=== PATIENT | male | born 1985 | race Caucasian/White ===

== ENCOUNTER 2021-02-22 10:06 | Inpatient (IN) ==
[2021-02-22] MEDS ORDERED: ONDANSETRON INJ 2 MG/ML 2 ML VIAL IV STA ×2 (10:30→12:36)
[2021-02-22] MEDS ORDERED: KETOROLAC TROMETHAMINE 15 MG/ML VIAL IV STA (10:30)
[2021-02-22] MEDS ORDERED: SODIUM CHLORIDE 0.9% 1000ML 1,000 ML IV STA (10:30)
[2021-02-22] MEDS ORDERED: PROMETHAZINE 12.5 MG/50.5 ML BAG IV STA (10:30)
[2021-02-22] MEDS ORDERED: MoRPHine SULFATE 4 MG/ML 1 ML CARP\\VIAL IV PRN (10:36)
[2021-02-22] MEDS ORDERED: MoRPHine SULFATE 10 MG/ML CARP/VIAL IV STA (10:36)
[2021-02-22] MEDS ORDERED: MoRPHine SULFATE 2 MG/ML CARP ONE (10:41)
--- NOTE | 2021-02-22 10:41 | Emergency Department Note ---
Impression & Plan Right sided abdominal pain, Vomiting, Leukocytosis, Acute pancreatitis ED Provider Note NAME: JERSON FISHER AGE: 35 SEX: M : 1985 ARRIVES VIA: Walk-In INFORMANT: [Patient] ED PROVIDER(S): [John Paul Hughes MD] CHIEF COMPLAINT: Vomiting, abdominal pain HISTORY OF PRESENT ILLNESS: The patient is a 35-year-old male presents with vomiting, abdominal pain and chest pain. This all began this morning, several hours ago. The patient describes the pain as a 10/10 across the chest and abdomen. He also in the last few hours, has developed some diarrhea. The patient states that he was fine last night. He states that he has had episodes like this for the last several months. This all started after he had a hernia surgery and his gallbladder removed last June. The patient presents today because his episode of symptoms is lasting much longer than typical. He is also in more pain. There has been no fever or chills, no cough or congestion. The patient d escribes the abdominal pain as severe, constant and right-sided. He describes his chest pain as severe, constant and central without radiation. Of note, the patient does use alcohol, he was drinking the day before his pain began. REVIEW OF SYSTEMS: See HPI for pertinent positives and negatives. A total of ten systems were reviewed and were otherwise negative. PMHx/PSHx: See Below SOCIAL HISTORY: See Below. PHYSICAL EXAM: GENERAL: Patient is in moderate distress from pain. HEENT: No acute trauma, normocephalic atraumatic, mucous membranes moist, no nasal congestion, no scleral icterus. NECK: No stridor, no adenopathy, no meningismus, trachea is midline. LUNGS: Clear to auscultation bilaterally, no wheeze, no rhonchi, breath sounds equal. HEART: Without murmurs gallops or rubs, regular rate and rhythm. ABDOMEN: Soft, moderately tender along the entire right side, bowel sounds positive, no hernias, no peritonitis. EXTREMITIES: No cyanosis or edema, full range of motion of all the joints without pain or difficulty, no signs for acute trauma. NEUROLOGIC: Oriented x 3, no acute motor or sensory deficits, no focal weakness. SKIN: No rash, no jaundice, no diaphoresis. Groin: Normal testicles, no obvious hernia. DIFFERENTIAL DIAGNOSIS: Appendicitis, testicular torsion, infections, diverticulitis, UTI, obstruction, mesenteric ischemia, aortic pathology, inflammatory bowel disease, renal colic, PUD, pancreatitis, biliary pathology, hernia, volvulus, constipation, as well as other pathologies. EMERGENCY DEPARTMENT COURSE/PROCEDURES: ECG: Indication was chest pain. The ECG shows a sinus bradycardia with a rate of 51. There is no ST elevation, no PVCs. The QTc is 377. Continuous Cardiac Monitoring: An order was placed for continuous cardiac monitoring. The monitor shows a rate of 62 with normal sinus rhythm. MEDICAL DECISION MAKING: There is a mild leukocytosis which would be consistent with infection. No anemia. There is a normal platelet count. Potassium was somewhat low at 3.1, no kidney failure. There were some liver enzyme elevations noted. Lipase was elevated at over 4000 consistent with pancreatitis. Covid testing was negative. ECG showed a sinus bradycardia, no acute ischemia. Cardiac enzyme testing x1 is not consistent with acute cardiac injury. Chest x-ray did not show free air, mediastinal widening or pneumonia. Abdominal and pelvis CT shows evidence for acute pancreatitis. The patient was quite uncomfortable on exam. He received IV saline. He was given IV saline with multivitamins, thiamine and folate. He received IV Phenergan for nausea. He received IV Zofran for nausea. A second dose of IV Zofran was given. He was given IV morphine for pain. He received IV Toradol for pain. He was given IV Pepcid. The patient does feel improved but still complains of some mild nausea. No further vomiting witnessed by me. The patient has acute pancreatitis. This explains his presentation. He likely has pancreatitis as result of his alcohol intake. The patient is in need of a hospital stay. I spoke with the patient and case management. The on-call hospitalist was consulted. Past Med/Surg History Medical History (Updated 02/22/21 @ 14:46 by John Paul Hughes MD) GERD (gastroesophageal reflux disease) Surgical History Hx of appendectomy S/P cholecystectomy Family History Other No significant family history Social History Smoking Status: Current every day smoker Preferred Language: Maori marital status: Current Living Situation: Spouse current occupational status: employed Feels Safe at Home: Yes Allergies Allergies Allergy/AdvReac Type Severity Reaction Status Date / Time erythromycin base Allergy Unknown seizure Verified 02/22/21 10:23 Home Meds Home Medications Medication Instructions Recorded Confirmed gumvmtf-gkrkpeyrdbmix-ecwfkhem 250 1 tab PO Q6H PRN 02/22/21 02/22/21 mg-250 mg-65 mg tablet (Excedrin Migraine) famotidine 40 mg tablet 40 mg PO HS 02/22/21 02/22/21 ondansetron 8 mg disintegrating 8 mg PO TID 02/22/21 02/22/21 tablet pantoprazole 20 mg tablet,delayed 40 mg PO QAM 02/22/21 02/22/21 release pindolol 10 mg tablet 10 mg PO BID 02/22/21 02/22/21 prednisone 10 mg tablet 10 - 50 mg PO DAILY 02/22/21 02/22/21 Results & Data (ED) Vital Signs Vital Signs - 24 hr 02/22/21 10:11 02/22/21 10:22 02/22/21 13:42 Temperature 36.5 C Temperature Source Skin Pulse Rate 62 67 67 Pulse Rate from SpO2 Sensor 67 Respiratory Rate 18 16 21 Blood Pressure 179/107 H 171/108 H 157/108 H Blood Pressure Mean 131 129 124 Pulse Oximetry 100 100 Oxygen Delivery Method Room Air Sepsis Recent Fever Within 48 Hours No Sepsis New/Unexplained Change in Mental Status No Sepsis Action Taken by Nursing No Action Required Home Medications Current Medication List: was personally reviewed by me Laboratory Data Attestation: I reviewed the patient's lab results. Result diagrams: 02/22/21 11:02 02/22/21 11:02 Lab Results 02/22/21 02/22/21 02/22/21 Range/Units 11:02 11:02 13:05 WBC 11.67 H (4.8-10.8) K/uL RBC 4.38 L (4.7-6.1) M/uL Hgb 15.7 (14.0-18.0) g/dL Hct 45.4 (42-52) % MCV 103.7 H (80-100) fL MCH 35.8 H (25-34) pg MCHC 34.6 (32-36) g/dL RDW Std Deviation 51.3 H (36.4-46.3) fL RDW Coeff of Jeremie 13.4 (11.5-14.5) % Plt Count 275 (130-400) K/uL MPV 9.6 (7.4-10.4) fL Immature Gran % (Auto) 0.2 % Neut % (Auto) 62.7 % Lymph % (Auto) 27.9 % Ware % (Auto) 9.1 % Eos % (Auto) 0.0 % Baso % (Auto) 0.1 % Neut # (Auto) 7.32 H (1.4-6.5) K/uL Lymph # (Auto) 3.26 (1.2-3.4) K/uL Ware # (Auto) 1.06 H (0.11-0.59) K/uL Eos # (Auto) 0.00 (0-0.5) K/uL Baso # (Auto) 0.01 (0-0.2) K/uL Immature Gran # (Auto) 0.02 (0.00-0.02) K/uL Sodium 141 (136-145) mmol/L Potassium 3.1 L (3.5-5.1) mmol/L Chloride 105 (98-107) mmol/L Carbon Dioxide 31 (21-32) mmol/L Anion Gap 5.0 (3-11) BUN 9 (7-18) mg/dl Creatinine 0.59 L (0.6-1.4) mg/dl Est Cr Clr Drug Dosing 175.8 ml/min Est GFR ( Amer) > 150.0 ml/min Est GFR (Non-Af Amer) 130.3 ml/min BUN/Creatinine Ratio 14.6 (10-20) Glucose 110 H (70-99) mg/dl Calcium 8.9 (8.5-10.1) mg/dl Total Bilirubin 1.1 H (0.2-1) mg/dl AST 375 H (15-37) U/L ALT 226 H (12-78) U/L Alkaline Phosphatase 216 H (45-117) U/L Troponin I < 0.015 (0-0.045) ng/ml Total Protein 7.0 (6.4-8.2) gm/dl Albumin 3.8 (3.4-5.0) gm/dl Globulin 3.2 (2.5-4.0) gm/dl Albumin/Globulin Ratio 1.2 (0.9-2) Lipase 4170 H (73-393) U/L COVID-19 Eval Order Covid19 at [facility] SARS-CoV-2 (PCR) (Negative) 02/22/21 Range/Units 13:05 WBC (4.8-10.8) K/uL RBC (4.7-6.1) M/uL Hgb (14.0-18.0) g/dL Hct (42-52) % MCV (80-100) fL MCH (25-34) pg MCHC (32-36) g/dL RDW Std Deviation (36.4-46.3) fL RDW Coeff of Jeremie (11.5-14.5) % Plt Count (130-400) K/uL MPV (7.4-10.4) fL Immature Gran % (Auto) % Neut % (Auto) % Lymph % (Auto) % Ware % (Auto) % Eos % (Auto) % Baso % (Auto) % Neut # (Auto) (1.4-6.5) K/uL Lymph # (Auto) (1.2-3.4) K/uL Ware # (Auto) (0.11-0.59) K/uL Eos # (Auto) (0-0.5) K/uL Baso # (Auto) (0-0.2) K/uL Immature Gran # (Auto) (0.00-0.02) K/uL Sodium (136-145) mmol/L Potassium (3.5-5.1) mmol/L Chloride (98-107) mmol/L Carbon Dioxide (21-32) mmol/L Anion Gap (3-11) BUN (7-18) mg/dl Creatinine (0.6-1.4) mg/dl Est Cr Clr Drug Dosing ml/min Est GFR ( Amer) ml/min Est GFR (Non-Af Amer) ml/min BUN/Creatinine Ratio (10-20) Glucose (70-99) mg/dl Calcium (8.5-10.1) mg/dl Total Bilirubin (0.2-1) mg/dl AST (15-37) U/L ALT (12-78) U/L Alkaline Phosphatase (45-117) U/L Troponin I (0-0.045) ng/ml Total Protein (6.4-8.2) gm/dl Albumin (3.4-5.0) gm/dl Globulin (2.5-4.0) gm/dl Albumin/Globulin Ratio (0.9-2) Lipase (73-393) U/L COVID-19 Eval Order SARS-CoV-2 (PCR) NEGATIVE (Negative) Administered Medications Potassium Chloride (K Leonides / Wtr) 10 meq in 100 mls @ 100 mls/hr IV Q1H STA Stop: 02/22/21 15:08 Last Admin: 02/22/21 14:30 Dose: 100 mls/hr Documented by: [id number] Morphine Sulfate (Morphine Sulfate 4 Mg/Ml 1 Ml Carp\Vial) 4 mg IV Q20M PRN PRN Reason: Pain Stop: 03/08/21 10:35 Last Admin: 02/22/21 13:06 Dose: 4 mg Documented by: [id number] Discontinued Medications Sodium Chloride (Nss 1000ml) 1,000 mls @ 999 mls/hr IV .Q1H1M STA Stop: 02/22/21 11:30 Last Infusion: 02/22/21 12:07 Dose: 0 mls/hr Documented by: [id number] Admin: 02/22/21 11:01 Dose: 999 mls/hr Documented by: [id number] Promethazine HCl (Phenergan) 12.5 mg in 50.5 mls @ 202 mls/hr IV NOW STA Stop: 02/22/21 10:44 Last Infusion: 02/22/21 11:20 Dose: 0 mls/hr Documented by: [id number] Admin: 02/22/21 11:01 Dose: 202 mls/hr Documented by: [id number] Multivitamins 10 ml/ Thiamine HCl 100 mg/ Folic Acid 1 mg/Sodium Chloride 1,011.2 mls @ 1,011.2 mls/hr IV .Q1H ONE Stop: 02/22/21 13:35 Last Infusion: 02/22/21 14:32 Dose: 0 mls/hr Documented by: [id number] Admin: 02/22/21 13:27 Dose: 1,011.2 mls/hr Documented by: [id number] Famotidine (Pepcid 20mg Iv Push) 20 mg in 5 mls @ 2.5 mls/min IV NOW STA Stop: 02/22/21 13:39 Last Admin: 02/22/21 14:20 Dose: 2.5 mls/min Documented by: [id number] Lorazepam (Ativan) 1 mg in 2 mls @ 2 mls/min IV NOW STA Stop: 02/22/21 13:41 Last Admin: 02/22/21 14:25 Dose: 2 mls/min Documented by: [id number] Ioversol (Optiray 320 100ml) 94 ml IV ONCE ONE Stop: 02/22/21 12:03 Last Admin: 02/22/21 12:02 Dose: 94 ml Documented by: [id number] Ketorolac Tromethamine (Ketorolac Tromethamine 15 Mg/Ml Vial) 15 mg IV NOW STA Stop: 02/22/21 10:31 Last Admin: 02/22/21 11:00 Dose: 15 mg Documented by: [id number] Morphine Sulfate (Morphine Sulfate 10 Mg/Ml Carp/Vial) 6 mg IV NOW STA Stop: 02/22/21 10:37 Last Admin: 02/22/21 11:01 Dose: Not Given Documented by: [id number] Morphine Sulfate (Morphine Sulfate 2 Mg/Ml Carp) Confirm Administered Dose 2 mg .ROUTE .STK-MED ONE Stop: 02/22/21 10:42 Last Admin: 02/22/21 11:00 Dose: 2 mg Documented by: [id number] Morphine Sulfate (Morphine Sulfate 4 Mg/Ml 1 Ml Carp\Vial) Confirm Administered Dose 4 mg .ROUTE .STK-MED ONE Stop: 02/22/21 10:43 Last Admin: 02/22/21 11:00 Dose: 4 mg Documented by: [id number] Ondansetron HCl (Ondansetron Inj 2 Mg/Ml 2 Ml Vial) 4 mg IV NOW STA Stop: 02/22/21 10:31 Last Admin: 02/22/21 10:59 Dose: 4 mg Documented by: [id number] Ondansetron HCl (Ondansetron Inj 2 Mg/Ml 2 Ml Vial) 4 mg IV NOW STA Stop: 02/22/21 12:37 Last Admin: 02/22/21 13:06 Dose: 4 mg Documented by: [id number] Imaging Data Radiologist's Impression: Abdomen/Pelvis CT 02/22/21 10:[address] WITH IV CONTRAST CT DOSE: 492.56 mGycm HISTORY: Acute nausea and vomiting with right-sided abdominal pain nv, right sided pain TECHNIQUE: Multiaxial CT images of the abdomen and pelvis were performed following the IV administration of 94 cc of Optiray, A dose lowering technique was utilized adhering to the principles of ALARA. COMPARISON STUDY: CT abdomen and pelvis 06/08/2014 FINDINGS: Clear lung bases. No pneumatosis or pneumoperitoneum. The imaged inferior cardiac chambers are unremarkable. The spleen, and adrenal glands are unremarkable. Cholecystectomy. Moderate interstitial and peripancreatic inflammation and with small amount of free fluid within the lesser sac extends into the mid mesentery. There is homogeneous enhancement of the pancreas. No pancreatic ductal dilation, mass or peripancreatic fluid collection. No biliary ductal dilation or choledocholithiasis identified. Mild hepatomegaly with hepatic steatosis. 2.9 cm hypodensity of the left hepatic lobe on image 23 is likely focal fatty infiltration. Patency of the hepatic and portal veins. The splenic and superior mesenteric veins are patent. Aorta and IVC are unrema rkable. Trace free fluid within the pelvis. Mildly enlarged portacaval lymph node measures up to 1.3 cm in short axis, likely reactive. Unremarkable kidneys. Subcentimeter hypodensity of the left kidney is too small to characterize however likely represents a cyst. There is no hydronephrosis. Mild urinary bladder wall thickening with partial distention. The prostate is up per limits of normal in size. Mild wall thickening of the duodenum is likely reactive. No bowel obstruction. Wall thickening throughout the colon is likely secondary to partial distention. Appendectomy. No acute fracture. IMPRESSION: 1. Findings compatible with moderate interstitial edematous pancreatitis. No peripancreatic fluid collections. 2. No pancreatic ductal biliary ductal dilation. 3. Cholecystectomy and appendectomy. 4. Hepatomegaly with hepatic steatosis. ACT 112: Negative or not required by law. The above report was generated using voice recognition software. It may contain grammatical, syntax or spelling errors. Electronically signed by: Frank Peña M.D. 02/22/2021 12:22 PM Chest X-Ray 02/22/21 10:38 XR chest 1V portable HISTORY: 35 years-old Male abd pain acute generalized abdominal pain COMPARISON: Acute abdominal series radiographs 05/30/2015 TECHNIQUE: AP view of the chest FINDINGS: Cardiomediastinal and hilar silhouettes are within normal limits. No pneumothorax, pleural effusion, airspace consolidation or overt pulmonary edema. Bones of the chest appear grossly intact. IMPRESSION: No acute process. ACT 112: Negative or not required by law. The above report was generated using voice recognition software. It may contain grammatical, syntax or spelling errors. Electronically signed by: Frank Peña M.D. 02/22/2021 10:51 AM Discharge Plan Visit Data Chief Complaint: Vomiting Stated Complaint: VOMITING/CHEST PAIN ED Provider: John Paul Hughes Discharge Problem: Right sided abdominal pain, Vomiting, Leukocytosis, Acute pancreatitis Patient Disposition: Admitted As Inpatient Condition: Fair Forms Stand Alone Forms: [facility] Episencial Prescriptions Prescriptions: No Action pindolol 10 mg tablet 10 mg PO BID RF: 0 prednisone 10 mg tablet 10 - 50 mg PO DAILY RF: 0 famotidine 40 mg tablet 40 mg PO HS RF: 0 ondansetron 8 mg tablet,disintegrating 8 mg PO TID RF: 0 pantoprazole 20 mg tablet,delayed release (DR/EC) 40 mg PO QAM RF: 0 Excedrin Migraine 250-250-65 mg Tablet 1 tab PO Q6H PRN (Reason: Headache) RF: 0 Referrals Referrals: Dheeraj Tee MD [Primary Care Provider] -
[2021-02-22] MEDS ORDERED: MoRPHine SULFATE 4 MG/ML 1 ML CARP\\VIAL ONE (10:42)
--- NOTE | 2021-02-22 10:52 | XRay Report ---
XR chest 1V portable HISTORY: 35 years-old Male abd pain acute generalized abdominal pain COMPARISON: Acute abdominal series radiographs 05/30/2015 TECHNIQUE: AP view of the chest FINDINGS: Cardiomediastinal and hilar silhouettes are within normal limits. No pneumothorax, pleural effusion, airspace consolidation or overt pulmonary edema. Bones of the chest appear grossly intact. IMPRESSION: No acute process. ACT 112: Negative or not required by law. The above report was generated using voice recognition software. It may contain grammatical, syntax o r spelling errors. Electronically signed by: Frank Peña M.D. 02/22/2021 10:51 AM
[2021-02-22 11:18] LABS: Basophils # (auto) 0.01 K/uL (0-0.2); Basophils % (auto) 0.1 %; Hematocrit (blood only) 45.4 % (42-52); Hemoglobin 15.7 g/dL (14.0-18.0); Immature Granulocytes # (auto) 0.02 K/uL (0.00-0.02); Immature Granulocytes % (auto) 0.2 %; Lymphocytes # (auto) 3.26 K/uL (1.2-3.4); Lymphocytes % (auto) 27.9 %; Mean Corpuscular Hemoglobin 35.8 pg (25-34); Mean Corpuscular Hgb Conc 34.6 g/dL (32-36); Mean Corpuscular Volume 103.7 fL (80-100); Mean Platelet Volume 9.6 fL (7.4-10.4); Monocytes # (auto) 1.06 K/uL (0.11-0.59); Monocytes % (auto) 9.1 %; Neutrophils # (auto) 7.32 K/uL (1.4-6.5); Neutrophils % (auto) 62.7 %; Platelet Count 275 K/uL (130-400); RDW Coefficient of Variation 13.4 % (11.5-14.5); RDW Standard Deviation 51.3 fL (36.4-46.3); Red Blood Count 4.38 M/uL (4.7-6.1); White Blood Count 11.67 K/uL (4.8-10.8)
[2021-02-22 11:42] LABS: Alanine Aminotransferase 226 U/L (12-78); Albumin Level 3.8 gm/dl (3.4-5.0); Aspartate Aminotransferase 375 U/L (15-37); BUN Creatinine Ratio 14.6 (10-20); Blood Urea Nitrogen 9 mg/dl (7-18); Calcium 8.9 mg/dl (8.5-10.1); Carbon Dioxide 31 mmol/L (21-32); Chloride 105 mmol/L (98-107); Creatinine Clr Calc Pharmacy 175.8 ml/min; Est GFR (African American) > 150.0 ml/min; Est GFR (Non-African American) 130.3 ml/min; Glucose 110 mg/dl (70-99); Potassium 3.1 mmol/L (3.5-5.1); Sodium 141 mmol/L (136-145)
[2021-02-22 11:46] LABS: Albumin Globulin Ratio 1.2 (0.9-2); Alkaline Phosphatase 216 U/L (45-117); Bilirubin,Total 1.1 mg/dl (0.2-1); Globulin 3.2 gm/dl (2.5-4.0); Lipase 4170 U/L (73-393); Troponin I < 0.015 ng/ml (0-0.045)
[2021-02-22] MEDS ORDERED: OPTIRAY 320 100ml IV ONE (12:02)
--- NOTE | 2021-02-22 12:14 | Electrocardiogram Report ---
Test Reason : Blood Pressure : / mmHG Vent. Rate : 051 BPM Atrial Rate : 051 BPM P-R Int : 166 ms QRS Dur : 094 ms QT Int : 410 ms P-R-T Axes : 054 025 026 degrees QTc Int : 377 ms Sinus bradycardia Otherwise normal ECG When compared with ECG of 24-JUL-1999 14:24, No significant change Confirmed by Vidal Heard ([id number]) on 02/22/2021 12:14:34 PM Referred By: NO PCP Confirmed By:Vidal Heard
--- NOTE | 2021-02-22 12:24 | CT Scan Report ---
ABDOMEN AND PELVIS CT WITH IV CONTRAST CT DOSE: 492.56 mGycm HISTORY: Acute nausea and vomiting with right-sided abdominal pain nv, right sided pain TECHNIQUE: Multiaxial CT images of the abdomen and pelvis were performed following the IV administrat ion of 94 cc of Optiray, A dose lowering technique was utilized adhering to the principles of ALARA. COMPARISON STUDY: CT abdomen and pelvis 06/08/2014 FINDINGS: Clear lung bases. No pneumatosis or pneumoperitoneum. The imaged inferior cardiac chambers are unrema rkable. The spleen, and adrenal glands are unremarkable. Cholecystectomy. Moderate interstitial and p eripancreatic inflammation and with small amount of free fluid within the lesser sac extends into the mid mesentery. There is homogeneous enhancement of the pancreas. No pancreatic ductal dilation, mass or peripancreatic fluid collection. No biliary ductal dilation or choledocholithiasis identified. Mi ld hepatomegaly with hepatic steatosis. 2.9 cm hypodensity of the left hepatic lobe on image 23 is li maylin focal fatty infiltration. Patency of the hepatic and portal veins. The splenic and superior mese nteric veins are patent. Aorta and IVC are unremarkable. Trace free fluid within the pelvis. Mildly e nlarged portacaval lymph node measures up to 1.3 cm in short axis, likely reactive. Unremarkable kidneys. Subcentimeter hypodensity of the left kidney is too small to characterize howev er likely represents a cyst. There is no hydronephrosis. Mild urinary bladder wall thickening with pa rtial distention. The prostate is upper limits of normal in size. Mild wall thickening of the duodenum is likely reactive. No bowel obstruction. Wall thickening throug hout the colon is likely secondary to partial distention. Appendectomy. No acute fracture. IMPRESSION: 1. Findings compatible with moderate interstitial edematous pancreatitis. No peripancreatic fluid col lections. 2. No pancreatic ductal biliary ductal dilation. 3. Cholecystectomy and appendectomy. 4. Hepatomegaly with hepatic steatosis. ACT 112: Negative or not required by law. The above report was generated using voice recognition software. It may contain grammatical, syntax o r spelling errors. Electronically signed by: Frank Peña M.D. 02/22/2021 12:22 PM
[2021-02-22] MEDS ORDERED: MULTI-VITAMIN INFUSION 10 ML, THIAMINE HCL 100 MG, FOLIC ACID 1 MG in SODIUM CHLORIDE 0... IV ONE (12:36)
[2021-02-22] MEDS ORDERED: FAMOTIDINE 20MG IV PUSH 20 MG/5 ML SYR IV STA (13:38)
[2021-02-22] MEDS ORDERED: PROMETHAZINE HCL 12.5 MG in SODIUM CHLORIDE 0.9% 50 ML IV STA (13:39)
[2021-02-22] MEDS ORDERED: LORazepam 1 MG/2 ML VIAL IV STA (13:40)
[2021-02-22] MEDS ORDERED: POTASSIUM CHLORIDE / WTR 10 MEQ/100 ML PLCT IV STA (14:09)
[2021-02-22 14:55] LABS: Appearance Urine Clear (Clear); Bacteria Urine Automated Negative (Negative); Blood Urine Negative (Negative); Color Urine Dark Yellow; Glucose Urine UA Negative (Negative); Ketones Urine Negative (Negative); Leukocyte Esterase Urine Trace (Negative); Nitrite Urine Positive (Negative); Protein Urine 1+ (Negative); RBC Urine Automated 0-4 /hpf (0-4); Urobilinogen Urine Negative (Negative)
[2021-02-22] MEDS ORDERED: GABAPENTIN 1200MG ALCOHOL WITHDRAWAL LOAD PO STA (14:55)
[2021-02-22 14:59] LABS: Bilirubin Urine 1+ (Negative); Specific Gravity Urine > 1.045 (1.000-1.030)
--- NOTE | 2021-02-22 15:06 | History & Physical Report ---
Date of Service February 22, 2021 Assessment & Plan (1) Acute pancreatitis: (2) Leukocytosis: (3) Transaminitis: (4) Alcohol abuse: (5) Tobacco abuse: (6) Macrocytosis without anemia: (7) HTN (hypertension): (8) Migraine: Plan: This is a 35-year-old male who has significant past medical history of hypertension, migraine, tobacco use, alcohol abuse who presents to ED secondary to epigastric abdominal pain, nausea, vomiting and diarrhea times approximately [address] a/p: moderate interstitial edematous pancreatitis. Lipase 4170. Acute Pancreatitis Leukocytosis Abdominal pain IV hydration with LR at 200 cc/h N.p.o. IV morphine 2 mg every 4 hours as needed pain 20 mg IV Pepcid x1 now and nightly (home med) IV PPI daily (can switch to oral when able to tolerate) Consult GI Obtain lipid panel and A1c in a.m. Follow lipase Strongly advised alcohol cessation Transaminitis Relative transaminitis with AST 375, ALT 226, alk phos 216 Known history of hepatomegaly with hepatic steatosis and alcohol abuse Likely in setting of acute pancreatitis Obtain acute hepatitis panel Repeat CMP in a.m. ETOH Abuse Patient admits to drinking 2-3 beverages nightly with 8 beverage including 1-2 shots of vodka Denies history of alcohol withdrawal, but anticipate patient may struggle with this Placed on gabapentin taper AWSS protocol As needed IV Ativan Received banana bag in ED Give thiamine and folic acid IV until able to tolerate p.o. Tobacco Abuse Nicotine patch ordered Smoking cessation encouraged Macrocytosis w/o anemia H&H stable with evidence of macrocytosis Likely in setting of alcohol abuse Check B12 and folate HTN Blood pressure significantly elevated in ED Likely secondary to severe pain Continue pindolol As needed labetalol for SBP greater than 170 if heart rate allows Abnormal Urinalysis +nitrite, leukocyte estrace, negative bacturia send for culture Hx of Migraine Was seen as an outpatient and placed on prednisone taper Has taken for 4 days We will hold in setting of acute pancreatitis, monitor closely DVT prophylaxis: SQ Lovenox Dispo: med tele PCP: Nay FULL CODE Pt was seen and examined in collaboration with Dr. Govea, please see addendum History of Present Illness Chief Complaint: Abdominal pain, n/v/d x 12 hours. Primary Care Provider: Dheeraj Tee MD This is a 35-year-old male who has significant past medical history of hypertension, migraine, tobacco use, alcohol abuse who presents to ED secondary to epigastric abdominal pain, nausea, vomiting and diarrhea times approximately 12 hours. He was in his normal state of health until 1:45 AM. He woke up with severe epigastric abdominal pain that radiated to right chest wall, nothing made pain better or worse, associated with nausea, vomiting yellow liquid, and diarrhea. He has had similar episodes in the past dating back to after he had his cholecystectomy in 06/2020. He would have similar symptoms that would last a few hours and resolve on their own. Further c/o heartburn. He also admits to drinking 2-3 alcoholic beverages nightly. Each beverage has approximately 1-2 vodka shots. His is at bedside and states that she has had pancreatitis and knows how it feels. He denies any recent illness, fever, chills, sweats, lightheadedness, dizziness, chest pain, shortness of breath, cough, URI symptoms, hematemesis, melena, hematochezia, constipation, dysuria, increased urgency or frequency with urination. He complains of feeling shaky. In ED he remained hemodynamically stable although he was significantly hypertensive. Lab work notable for WBC 11.67k H&H 15.7 and 45.4, potassium 3.1, glucose 110, total bilirubin 1.1, AST 375, ALT 226, alk phos 216, lipase 4170. CT abdomen pelvis revealed moderate interstitial edematous pancreatitis with no peripancreatic fluid collections. Hepatomegaly with hepatic steatosis was also noted. His last beverage was approximately last evening at 9 PM. Allergies Allergy/AdvReac Type Severity Reaction Status Date / Time erythromycin base Allergy Unknown seizure Verified 02/22/21 10:23 Home Medications Medication Instructions Recorded Confirmed Type exyolih-ddhzrsznvypsu-tlryjmah 250 1 tab PO Q6H PRN 02/22/21 02/22/21 History mg-250 mg-65 mg tablet (Excedrin Migraine) famotidine 40 mg tablet 40 mg PO HS 02/22/21 02/22/21 History ondansetron 8 mg disintegrating 8 mg PO TID 02/22/21 02/22/21 History tablet pantoprazole 20 mg tablet,delayed 40 mg PO QAM 02/22/21 02/22/21 History release pindolol 10 mg tablet 10 mg PO BID 02/22/21 02/22/21 History prednisone 10 mg tablet 10 - 50 mg PO DAILY 02/22/21 02/22/21 History Past Med/Surg History Medical History (Updated 02/22/21 @ 15:09 by Kirstie Schaffer PA-C) Alcohol abuse GERD (gastroesophageal reflux disease) HTN (hypertension) Migraine Tobacco abuse Surgical History (Updated 02/22/21 @ 15:03 by Kirstie Schaffer PA-C) History of colonoscopy History of esophagogastroduodenoscopy (EGD) History of umbilical hernia repair 06/2020 Hx of appendectomy S/P cholecystectomy 06/2020 Family History Brother Hypertension Grandfather (Paternal) Parkinson disease Social History (Updated 02/22/21 @ 15:05 by Kirstie Schaffer PA-C) Smoking Status: Current every day smoker Tobacco Type: Cigarettes packs per day: 1.5; Years Smoked: 10; Cigarettes Per Day: 30; Hx Alcohol Use: Yes Alcohol type: hard liquor Alcohol type Comment: vodka Alcohol Intake Frequency Comment: night; 2-3 drinks with 3-6 shots of vodka total Hx Substance Use: No Preferred Language: Estonian marital status: Current Living Situation: Spouse current occupational status: employed Feels Safe at Home: Yes Review of Systems Review of Systems: All systems reviewed & are unremarkable except as noted in HPI & below Physical Exam Physical Exam: Constitutional: WD/WN, acutely ill appearing M, vomiting, vitals as above, NAD, sitting up in bed, answers questions approp Head: Normocephalic, Atraumatic Eyes: PERRL, conjunctivae normal, anicteric sclerae ENMT: external ear and nose normal, oropharynx normal dry membranes Neck: trachea midline, no thyromegaly normal visual inspection Respiratory: normal respiratory effort, lungs clear to auscultation, no wheeze, rales, rhonchi. Normal insp/exp effort, no accessory muscle use Cardiovascular: RRR, no murmur, no edema Vessels: no JVD or carotid bruit Chest: normal inspection of chest Abdomen: normal bowel sounds, firm, epigastric tenderness, ND Musculoskeletal: no cyanosis or clubbing, extremities motor strength 5/5 Skin: no rashes, warm and dry normal turgor Neurologic: PERRL, EOMI, accommodation nl, no face palsy, no dysarthria CN's II-XI intact bilaterally and moves all extremities Psychiatric: A+Ox3, euthymic affect Lymphatic: no cervical or axillary lymphadenopathy : deferred Results & Data Results & Data ([facility]) Vital Signs (Past 12 Hours) Vital Signs Temp Pulse Resp BP Pulse Ox 02/22/21 13:42 67 21 157/108 H 02/22/21 10:22 67 16 171/108 H 100 02/22/21 10:11 36.5 C 62 18 179/107 H 100 Diagnostic Findings Abdomen/Pelvis CT 02/22/21 10:[address] WITH IV CONTRAST CT DOSE: 492.56 mGycm HISTORY: Acute nausea and vomiting with right-sided abdominal pain nv, right sided pain TECHNIQUE: Multiaxial CT images of the abdomen and pelvis were performed following the IV administration of 94 cc of Optiray, A dose lowering technique was utilized adhering to the principles of ALARA. COMPARISON STUDY: CT abdomen and pelvis 06/08/2014 FINDINGS: Clear lung bases. No pneumatosis or pneumoperitoneum. The imaged inferior cardiac chambers are unremarkable. The spleen, and adrenal glands are unremarkable. Cholecystectomy. Moderate interstitial and peripancreatic inflammation and with small amount of free fluid within the lesser sac extends into the mid mesentery. There is homogeneous enhancement of the pancreas. No pancreatic ductal dilation, mass or peripancreatic fluid collection. No biliary ductal dilation or choledocholithiasis identified. Mild hepatomegaly with hepatic steatosis. 2.9 cm hypodensity of the left hepatic lobe on image 23 is likely focal fatty infiltration. Patency of the hepatic and portal veins. The splenic and superior mesenteric veins are patent. Aorta and IVC are unremarkable. Trace free fluid within the pelvis. Mildly enlarged portacaval lymph node measures up to 1.3 cm in short axis, likely reactive. Unremarkable kidneys. Subcentimeter hypodensity of the left kidney is too small to characterize however likely represents a cyst. There is no hydronephrosis. Mild urinary bladder wall thickening with partial distention. The prostate is upper limits of normal in size. Mild wall thickening of the duodenum is likely reactive. No bowel obstruction. Wall thickening throughout the colon is likely secondary to partial distention. Appendectomy. No acute fracture. IMPRESSION: 1. Findings compatible with moderate interstitial edematous pancreatitis. No peripancreatic fluid collections. 2. No pancreatic ductal biliary ductal dilation. 3. Cholecystectomy and appendectomy. 4. Hepatomegaly with hepatic steatosis. ACT 112: Negative or not required by law. The above report was generated using voice recognition software. It may contain grammatical, syntax or spelling errors. Electronically signed by: Frank Peña M.D. 02/22/2021 12:22 PM Chest X-Ray 02/22/21 10:38 XR chest 1V portable HISTORY: 35 years-old Male abd pain acute generalized abdominal pain COMPARISON: Acute abdominal series radiographs 05/30/2015 TECHNIQUE: AP view of the chest FINDINGS: Cardiomediastinal and hilar silhouettes are within normal limits. No pneumothorax, pleural effusion, airspace consolidation or overt pulmonary edema. Bones of the chest appear grossly intact. IMPRESSION: No acute process. ACT 112: Negative or not required by law. The above report was generated using voice recognition software. It may contain grammatical, syntax or spelling errors. Electronically signed by: Frank Peña M.D. 02/22/2021 10:51 AM Medications Administered Medication List Potassium Chloride (K Leonides / Wtr) 10 meq in 100 mls @ 100 mls/hr IV Q1H STA Stop: 02/22/21 15:08 Last Admin: 02/22/21 14:30 Dose: 100 mls/hr Documented by: [id number] Morphine Sulfate (Morphine Sulfate 4 Mg/Ml 1 Ml Carp\Vial) 4 mg IV Q20M PRN PRN Reason: Pain Stop: 03/08/21 10:35 Last Admin: 02/22/21 13:06 Dose: 4 mg Documented by: [id number] Discontinued Medications Sodium Chloride (Nss 1000ml) 1,000 mls @ 999 mls/hr IV .Q1H1M STA Stop: 02/22/21 11:30 Last Infusion: 02/22/21 12:07 Dose: 0 mls/hr Documented by: [id number] Admin: 02/22/21 11:01 Dose: 999 mls/hr Documented by: [id number] Promethazine HCl (Phenergan) 12.5 mg in 50.5 mls @ 202 mls/hr IV NOW STA Stop: 02/22/21 10:44 Last Infusion: 02/22/21 11:20 Dose: 0 mls/hr Documented by: [id number] Admin: 02/22/21 11:01 Dose: 202 mls/hr Documented by: [id number] Multivitamins 10 ml/ Thiamine HCl 100 mg/ Folic Acid 1 mg/Sodium Chloride 1,011.2 mls @ 1,011.2 mls/hr IV .Q1H ONE Stop: 02/22/21 13:35 Last Infusion: 02/22/21 14:32 Dose: 0 mls/hr Documented by: [id number] Admin: 02/22/21 13:27 Dose: 1,011.2 mls/hr Documented by: [id number] Famotidine (Pepcid 20mg Iv Push) 20 mg in 5 mls @ 2.5 mls/min IV NOW STA Stop: 02/22/21 13:39 Last Admin: 02/22/21 14:20 Dose: 2.5 mls/min Documented by: [id number] Lorazepam (Ativan) 1 mg in 2 mls @ 2 mls/min IV NOW STA Stop: 02/22/21 13:41 Last Admin: 02/22/21 14:25 Dose: 2 mls/min Documented by: [id number] Ioversol (Optiray 320 100ml) 94 ml IV ONCE ONE Stop: 02/22/21 12:03 Last Admin: 02/22/21 12:02 Dose: 94 ml Documented by: [id number] Ketorolac Tromethamine (Ketorolac Tromethamine 15 Mg/Ml Vial) 15 mg IV NOW STA Stop: 02/22/21 10:31 Last Admin: 02/22/21 11:00 Dose: 15 mg Documented by: [id number] Morphine Sulfate (Morphine Sulfate 10 Mg/Ml Carp/Vial) 6 mg IV NOW STA Stop: 02/22/21 10:37 Last Admin: 02/22/21 11:01 Dose: Not Given Documented by: [id number] Morphine Sulfate (Morphine Sulfate 2 Mg/Ml Carp) Confirm Administered Dose 2 mg .ROUTE .STK-MED ONE Stop: 02/22/21 10:42 Last Admin: 02/22/21 11:00 Dose: 2 mg Documented by: [id number] Morphine Sulfate (Morphine Sulfate 4 Mg/Ml 1 Ml Carp\Vial) Confirm Administered Dose 4 mg .ROUTE .STK-MED ONE Stop: 02/22/21 10:43 Last Admin: 02/22/21 11:00 Dose: 4 mg Documented by: [id number] Ondansetron HCl (Ondansetron Inj 2 Mg/Ml 2 Ml Vial) 4 mg IV NOW STA Stop: 02/22/21 10:31 Last Admin: 02/22/21 10:59 Dose: 4 mg Documented by: [id number] Ondansetron HCl (Ondansetron Inj 2 Mg/Ml 2 Ml Vial) 4 mg IV NOW STA Stop: 02/22/21 12:37 Last Admin: 02/22/21 13:06 Dose: 4 mg Documented by: [id number] ECG Indication: abdominal pain and chest pain Rate (beats per minute): 51 Rhythm: sinus bradycardia COVID-19 Results Results COVID-19 Adm Lab Results: RBC 4.38 M/uL (4.7-6.1) L 02/22/21 WBC 11.67 K/uL (4.8-10.8) H 02/22/21 Hgb 15.7 g/dL (14.0-18.0) 02/22/21 Hct 45.4 % (42-52) 02/22/21 Plt Count 275 K/uL (130-400) 02/22/21 Neutrophils (%) (Auto) 62.7 % 02/22/21 Lymphocytes (%) (Auto) 27.9 % 02/22/21 Monocytes # (Auto) 1.06 K/uL (0.11-0.59) H 02/22/21 Eosinophils # (Auto) 0.00 K/uL (0-0.5) 02/22/21 Immature Granulocyte % (Auto) 0.2 % 02/22/21 Neutrophils # (Auto) 7.32 K/uL (1.4-6.5) H 02/22/21 Lymphocytes # (Auto) 3.26 K/uL (1.2-3.4) 02/22/21 Monocytes # (Auto) 1.06 K/uL (0.11-0.59) H 02/22/21 Eosinophils # (Auto) 0.00 K/uL (0-0.5) 02/22/21 Basophils # (Auto) 0.01 K/uL (0-0.2) 02/22/21 Immature Granulocyte # (Auto) 0.02 K/uL (0.00-0.02) 02/22/21 Na 141 mmol/L (136-145) 02/22/21 K 3.1 mmol/L (3.5-5.1) L 02/22/21 Cl 105 mmol/L (98-107) 02/22/21 CO2 31 mmol/L (21-32) 02/22/21 Anion Gap 5.0 (3-11) 02/22/21 BUN 9 mg/dl (7-18) 02/22/21 Creatinine 0.59 mg/dl (0.6-1.4) L 02/22/21 BUN/Creatinine Ratio 14.6 (10-20) 02/22/21 Glucose Level 110 mg/dl (70-99) H 02/22/21 Ca 8.9 mg/dl (8.5-10.1) 02/22/21 Total Bilirubin 1.1 mg/dl (0.2-1) H 02/22/21 AST/SGOT 375 U/L (15-37) H 02/22/21 ALT/SGPT 226 U/L (12-78) H 02/22/21 Alkaline Phosphatase 216 U/L (45-117) H 02/22/21 Total Protein 7.0 gm/dl (6.4-8.2) 02/22/21 Albumin 3.8 gm/dl (3.4-5.0) 02/22/21 Globulin 3.2 gm/dl (2.5-4.0) 02/22/21 Albumin/Globulin Ratio 1.2 (0.9-2) 02/22/21 Troponin I < 0.015 ng/ml (0-0.045) 02/22/21 COVID-19 PCR NEGATIVE (Negative) 02/22/21 Chest X-Ray 02/22/21 Code Status & VTE Plan Code Status Ful Code VTE Prophylaxis Plan VTE Prophylaxis will be ordered: Yes Supervising Physician Co-Signing Physician Notes 35-year-old male with PMH of HTN, migraine, tobacco use, alcohol abuse presented to the ED 02/22 with complaint of epigastric abdominal pain associated with nausea vomiting and diarrhea for approximately 12 hours. He is being managed the floor for the following: #. Pancreatitis likely secondary to alcoholic: Status post cholecystectomy and pancreatectomy, CTAP negative for biliary ductal dilation or choledocholithiasis. IVF, pain control, n.p.o., GI consult. #. Elevated blood glucose level: Patient gives history of recurrent epigastric pain in the past, will rule out diabetes with A1c. #. Elevated blood pressure: Likely secondary to pain from acute pancreatitis. Slightly coming down, will continue to monitor. #. Electrolytes: Monitor daily, replaced. #. Transaminitis: Sent hepatic panel, also can be due to pancreatitis. #. Hepatic steatosis: Likely secondary to alcohol abuse #. Alcohol abuse: Close monitoring for possible withdrawal. History of 3-6 shots of vodka per day per patient. ISAAC protocol. Replace folate/thiamine. Continue magnesium monitoring daily. #. Macrocytosis: Likely secondary to alcohol abuse. Will rule out folate/vitamin B12 deficiency. Examination finding: GENERAL: Drowsy from pain medication, minimally cooperative, answers appropriately. NAD, on RA. HEENT: No pallor, no icterus. Pupils equal, round and reactive to light. Oral mucosa moist. NECK: No JVD, no neck masses. HEART: S1 and S2 heard. Regular rate and rhythm. No murmur, no gallop. RESPIRATORY SYSTEM: Normal AP diameter. No accessory muscle use. No wheezing, no crackles. ABDOMEN: Soft, bowel sounds present, tender on superficial and deep palpation, no distention. CENTRAL NERVOUS SYSTEM: No facial droop. Speech is clear. Obeys simple co mmands. Moves extremities. EXTREMITIES: No edema, no erythema seen. I have seen and examined the patient and have discussed the case with the provider above. I agree with the assessment and plan as stated. (1) Leukocytosis Leukocytosis type: unspecified Qualified Code(s): D72.829 - Elevated white blood cell count, unspecified (2) Acute pancreatitis Acute pancreatitis complication: no infection or necrosis Pancreatitis type: alcohol induced Qualified Code(s): K85.20 - Alcohol induced acute pancreatitis without necrosis or infection
--- NOTE | 2021-02-22 15:30 | Gastrointestinal Consultation ---
Date of Consultation February 22, 2021 Assessment & Plan (1) Acute pancreatitis: Suspect this is acute alcoholic pancreatitis without evidence of severe alcoholic hepatitis. Suspect lft elevation is from recent etoh use. Conservative mgmt for pancreatitis- iv fluid, npo status, prn pain control. For now given mild alcoholic hepatitis - avoid ethanol, no steroids at this point unless maddrey's function goes over 32. History of Present Illness Reason for Consultation: Pancreatitis Requesting Physician: Kirstie Schaffer History of Present Illness 35 yo male with a history of etoh use, admitted now thru the er for abdominal pain, nausea, vomiting. Workup thus far shows elevated lft's and lipase. Imaging without evidence of biliary source. He is still complaining of pain. Appears to be withdrawing slightly but alert and oriented currently. No fevers, chills, chest pain, vomiting currently, hematemesis, hematochezia, diarrhea noted. Allergies Allergy/AdvReac Type Severity Reaction Status Date / Time erythromycin base Allergy Unknown seizure Verified 02/22/21 10:23 Home Medications Medication Instructions Recorded Confirmed Type fcguain-azbwnirmbogwb-wusctrgq 250 1 tab PO Q6H PRN 02/22/21 02/22/21 History mg-250 mg-65 mg tablet (Excedrin Migraine) famotidine 40 mg tablet 40 mg PO HS 02/22/21 02/22/21 History ondansetron 8 mg disintegrating 8 mg PO TID 02/22/21 02/22/21 History tablet pantoprazole 20 mg tablet,delayed 40 mg PO QAM 02/22/21 02/22/21 History release pindolol 10 mg tablet 10 mg PO BID 02/22/21 02/22/21 History prednisone 10 mg tablet 10 - 50 mg PO DAILY 02/22/21 02/22/21 History Patient History Medical History (Updated 02/22/21 @ 15:09 by Kirstie Schaffer PA-C) Alcohol abuse GERD (gastroesophageal reflux disease) HTN (hypertension) Migraine Tobacco abuse Surgical History (Updated 02/22/21 @ 15:03 by Kirstie Schaffer PA-C) History of colonoscopy History of esophagogastroduodenoscopy (EGD) History of umbilical hernia repair 06/2020 Hx of appendectomy S/P cholecystectomy 06/2020 Family History Brother Hypertension Grandfather (Paternal) Parkinson disease Social History (Updated 02/22/21 @ 15:05 by Kirstie Schaffer PA-C) Smoking Status: Current every day smoker Tobacco Type: Cigarettes packs per day: 1.5; Years Smoked: 10; Cigarettes Per Day: 30; Hx Alcohol Use: Yes Alcohol type: hard liquor Alcohol type Comment: vodka Alcohol Intake Frequency Comment: night; 2-3 drinks with 3-6 shots of vodka total Hx Substance Use: No Preferred Language: Bhutanese marital status: Current Living Situation: Spouse current occupational status: employed Feels Safe at Home: Yes Review of Systems Review of Systems: None reported other than abdominal pain nausea vomiting Constitutional: No reported fevers chills to me Respiratory: No sob noted Cardiovascular: Additional Comments: No chest pain noted Gastrointestinal: + abdominal pain as per hpi Physical Exam Physical Exam: Slightly disheveled appearing male in nad Eyes: No scleral icterus noted Respiratory: No respiratory distress noted, normal use of accessory muscles of respiration, normal breathing pattern Gastrointestinal (Abdomen): normal bowel sounds, soft, nontender, no hepatosplenomegaly Inspection/Auscultation: abdomen normal to inspection; abdomen not distended Results & Data ([facility]) Vital Signs (Past 12 Hours) Vital Signs Temp Pulse Resp BP Pulse Ox 02/22/21 13:42 67 21 157/108 H 02/22/21 10:22 67 16 171/108 H 100 02/22/21 10:11 36.5 C 62 18 179/107 H 100 Laboratory Results Ast/alt elevation Lipase elevation Diagnostic Findings CT with normal bile duct and pancreas inflammation (1) Acute pancreatitis Acute pancreatitis complication: no infection or necrosis Pancreatitis type: alcohol induced Qualified Code(s): K85.20 - Alcohol induced acute pancreatitis without necrosis or infection
[2021-02-22] MEDS ORDERED: GABAPENTIN 600 MG TAB PO STA (15:32)
[2021-02-22] MEDS ORDERED: POTASSIUM CHLORIDE / WTR 10 MEQ/100 ML PLCT IV SCH (15:45)
[2021-02-22] MEDS ORDERED: MoRPHine SULFATE 2 MG/ML CARP IV PRN (16:35)
[2021-02-22] MEDS ORDERED: LABETALOL HCL IV 5 MG/ML 20ML IV PRN (16:35)
[2021-02-22] MEDS ORDERED: POLYETHYLENE (MIRALAX) 17 GM PACK PO PRN (16:35)
[2021-02-22] MEDS ORDERED: MAGNESIUM HYDROXIDE SUSP 30 ML UDC PO PRN (16:35)
[2021-02-22] MEDS ORDERED: GABAPENTIN 600 MG TAB PO ONE (16:35)
[2021-02-22] MEDS ORDERED: ONDANSETRON INJ 2 MG/ML 2 ML VIAL IV PRN (16:35)
[2021-02-22] MEDS: LACTATED RINGER'S 1,000 ML IV SCH ×2 (17:22→22:34)
[2021-02-22] MEDS: POTASSIUM CHLORIDE / WTR 10 MEQ/100 ML PLCT IV SCH ×2 (18:09→19:25)
[2021-02-22] MEDS: NICOTINE 21 MG/24 HR TDSY TD SCH (18:11)
[2021-02-22] MEDS: LORazepam 1 MG/2 ML VIAL IV PRN (18:15)
[2021-02-22] MEDS: FOLIC ACID 1 MG in SYRINGE 9.8 ML IV SCH (19:25)
[2021-02-22] MEDS: THIAMINE HCL 100 MG in SYRINGE 9 ML IV SCH (19:25)
[2021-02-22] MEDS: GABAPENTIN 600 MG TAB PO SCH (21:25)
[2021-02-22] MEDS: ENOXAPARIN INJ 40 MG/0.4 ML SYR SQ SCH (21:25)
[2021-02-22] MEDS: ACETAMINOPHEN 325 MG TAB PO PRN (23:54)
[2021-02-23] MEDS: LACTATED RINGER'S 1,000 ML IV SCH ×4 (03:36→20:26)
[2021-02-23] MEDS: GABAPENTIN 600 MG TAB PO SCH ×3 (05:23→21:31)
[2021-02-23] MEDS: ACETAMINOPHEN 325 MG TAB PO PRN ×2 (05:23→11:15)
[2021-02-23] MEDS: LORazepam 1 MG/2 ML VIAL IV PRN ×2 (05:24→07:49)
[2021-02-23 06:18] LABS: Basophils # (auto) 0.01 K/uL (0-0.2); Basophils % (auto) 0.1 %; Eosinophils # (auto) 0.01 K/uL (0-0.5); Eosinophils % (auto) 0.1 %; Hematocrit (blood only) 42.5 % (42-52); Hemoglobin 14.3 g/dL (14.0-18.0); Immature Granulocytes # (auto) 0.03 K/uL (0.00-0.02); Immature Granulocytes % (auto) 0.3 %; Lymphocytes # (auto) 1.94 K/uL (1.2-3.4); Lymphocytes % (auto) 17.5 %; Mean Corpuscular Hemoglobin 35.3 pg (25-34); Mean Corpuscular Hgb Conc 33.6 g/dL (32-36); Mean Corpuscular Volume 104.9 fL (80-100); Mean Platelet Volume 10.4 fL (7.4-10.4); Monocytes # (auto) 1.06 K/uL (0.11-0.59); Monocytes % (auto) 9.5 %; Neutrophils # (auto) 8.06 K/uL (1.4-6.5); Neutrophils % (auto) 72.5 %; Platelet Count 186 K/uL (130-400); RDW Coefficient of Variation 13.5 % (11.5-14.5); RDW Standard Deviation 51.9 fL (36.4-46.3); Red Blood Count 4.05 M/uL (4.7-6.1); White Blood Count 11.11 K/uL (4.8-10.8)
[2021-02-23 06:54] LABS: Alanine Aminotransferase 141 U/L (12-78); Albumin Level 2.9 gm/dl (3.4-5.0); Aspartate Aminotransferase 182 U/L (15-37); BUN Creatinine Ratio 20.1 (10-20); Blood Urea Nitrogen 12 mg/dl (7-18); Calcium 8.2 mg/dl (8.5-10.1); Carbon Dioxide 29 mmol/L (21-32); Chloride 102 mmol/L (98-107); Cholesterol 204 mg/dl (0-200); Creatinine Clr Calc Pharmacy 187.5 ml/min; Est GFR (African American) > 150.0 ml/min; Est GFR (Non-African American) 131.2 ml/min; Glucose 83 mg/dl (70-99); Sodium 136 mmol/L (136-145); Triglycerides 126 mg/dl (0-150); VLDL Cholesterol 25 mg/dl
[2021-02-23 06:57] LABS: Folate (Folic Acid) 4.8 ng/ml (>5.38)
[2021-02-23 07:00] LABS: Alkaline Phosphatase 176 U/L (45-117); Bilirubin,Total 1.9 mg/dl (0.2-1); Chol HDL Ratio 7; Globulin 2.9 gm/dl (2.5-4.0); HDL Cholesterol 30 mg/dl; LDL Cholesterol Calculated 149 mg/dl; Lipase 2073 U/L (73-393); Total Protein 5.8 gm/dl (6.4-8.2)
[2021-02-23] MEDS: FOLIC ACID 1 MG in SYRINGE 9.8 ML IV SCH (09:06)
[2021-02-23] MEDS: THIAMINE HCL 100 MG in SYRINGE 9 ML IV SCH (09:07)
[2021-02-23] MEDS: NICOTINE 21 MG/24 HR TDSY TD SCH (10:22)
[2021-02-23] MEDS: PANTOprazole 40 MG in SYRINGE 0 ML IV SCH (11:15)
--- NOTE | 2021-02-23 13:22 | Gastroenterology Progress Note ---
Date of Service February 23, 2021 Assessment & Plan (1) Transaminitis: (2) Macrocytosis without anemia: (3) Alcohol abuse: Plan: IV Fluid today, prn pain medications Presumably alcoholic pancreatitis- avoid ethanol for the next 6 weeks. Advance diet slowly as tolerated. Ok to dc home once tolerating po, pain is 0/10, and he is ambulating moving his bowels. Admission and Anticipated Discharge Date Admission Date: February 22, 2021 Subjective Pain has improved- he states it is near 0 this afternoon. Review of Systems Review of Systems: All systems reviewed & are unremarkable except as noted in HPI & below Physical Exam Physical Exam: Young male in nad Gastrointestinal (Abdomen): normal bowel sounds, soft, nontender, no hepatosplenomegaly Results & Data ([facility]) Vital Signs (Past 12 Hours) Vital Signs Temp Pulse Pulse Resp BP BP Pulse Ox 02/23/21 11:59 36.8 C 02/23/21 11:27 38 C H 102 H 16 138/93 92 02/23/21 09:59 96 H 02/23/21 08:00 37.7 C H 99 H 19 150/104 H 91 02/23/21 07:34 37.7 C H 99 H 16 150/104 H 91 02/23/21 04:44 38.1 C H 95 H 20 149/97 H 94 Pulse Ox 02/23/21 11:59 02/23/21 11:27 02/23/21 09:59 02/23/21 08:00 96 02/23/21 07:34 02/23/21 04:44 Laboratory Results Macrocytic anemia- folic acid deficient Lipase improving
--- NOTE | 2021-02-23 15:11 | Hospitalist Progress Note ---
Date of Service February 23, 2021 Assessment & Plan (1) Acute pancreatitis: (2) Transaminitis: (3) Macrocytosis without anemia: (4) Alcohol abuse: Plan: 35-year-old male with PMH of HTN, migraine, tobacco use, alcohol abuse [4-5 drinks of vodka per patient, maximum of 1 L of vodka per day at times per ] presented to the ED 02/22 with complaint of epigastric abdominal pain associated with nausea vomiting and diarrhea for approximately 12 hours. He is being ma naged the floor for the following: #. Pancreatitis likely secondary to alcoholic: Status post cholecystectomy and pancreatectomy, CTAP negative for biliary ductal dilation or choledocholithiasis. Continue with IVF, pain control GI on board: On clear liquid from 02/23 evening, can DC once patient tolerates p.o. advises avoiding ethanol for the next 6 weeks. #. Elevated blood glucose level: Patient gives history of recurrent epigastric pain in the past, will rule out diabetes with A1c. A1c pending #. Elevated blood pressure: Likely secondary to pain from acute pancreatitis. Improved #. Electrolytes: Monitor daily, replaced. #. Transaminitis: Likely secondary to pancreatitis Sent hepatic panel, pending #. Hepatic steatosis: Likely secondary to alcohol abuse Advised quitting alcohol #. Alcohol abuse: Close monitoring for possible withdrawal. History of 3-6 shots of vodka per day per patient. ISAAC protocol. Replace folate/thiamine. Continue magnesium monitoring daily. #. Macrocytosis: Likely secondary to alcohol abuse. Vitamin B12 within normal limit, folate deficient. Continue with folate supplementation upon discharge. Admission and Anticipated Discharge Date Admission Date: February 22, 2021 Subjective Patient was lying in bed, drowsy, AOx3, answers appropriately, NAD, states that he has improved belly pain. 5/10 from 04/20 yesterday. Denies nausea/vomiting. Had last bowel movement yesterday. Is passing gas. Confirm that he drinks 4-5 drink of vodka every day but said over the phone that he would drink at max 1 bottle of vodka a day when getting an update on him. 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 Physical Exam Physical Exam: GENERAL: Drowsy but oriented x3. NAD, on RA. Easily wakes up on talking HEENT: No pallor, no icterus. Pupils equal, round and reactive to light. Oral mucosa moist. NECK: No JVD, no neck masses. HEART: S1 and S2 heard. Regular rate and rhythm. No murmur, no gallop. RESPIRATORY SYSTEM: Normal AP diameter. No accessory muscle use. No wheezing, no crackles. ABDOMEN: Soft, bowel sounds present, epigastric tenderness on deep palpation, no distention. CENTRAL NERVOUS SYSTEM: No facial droop. Speech is clear. Obeys simple commands. Moves extremities. EXTREMITIES: No edema, no erythema seen. Results & Data Results & Data ([facility]) Vital Signs (Past 12 Hours) Vital Signs Temp Pulse Pulse Resp BP BP Pulse Ox 02/23/21 14:39 37.2 C 100 H 18 132/86 95 02/23/21 11:59 36.8 C 02/23/21 11:27 38 C H 102 H 16 138/93 92 02/23/21 09:59 96 H 02/23/21 08:00 37.7 C H 99 H 19 150/104 H 91 02/23/21 07:34 37.7 C H 99 H 16 150/104 H 91 02/23/21 04:44 38.1 C H 95 H 20 149/97 H 94 Pulse Ox 02/23/21 14:39 02/23/21 11:59 02/23/21 11:27 02/23/21 09:59 02/23/21 08:00 96 02/23/21 07:34 02/23/21 04:44 (1) Acute pancreatitis Acute pancreatitis complication: no infection or necrosis Pancreatitis type: alcohol induced Qualified Code(s): K85.20 - Alcohol induced acute pancreatitis without necrosis or infection
[2021-02-23 16:38] LABS: Estimated Average Glucose 94 mg/dl; Hemoglobin A1C 4.9 % (4.5-5.6)
[2021-02-23] MEDS ORDERED: FAMOTIDINE 20 MG in SYRINGE 3 ML IV SCH (21:00)
[2021-02-23] MEDS: ENOXAPARIN INJ 40 MG/0.4 ML SYR SQ SCH (21:30)
[2021-02-23] MEDS ORDERED: ACETAMINOPHEN 325 MG TAB PO STA (23:18)
[2021-02-23] MEDS ORDERED: CEFEPIME CONSULT ACTIVE PRN (23:22)
--- NOTE | 2021-02-23 23:23 | Communication Note ---
Date of Service: February 23, 2021 Made aware of temperature elevation 37.8, tachycardia UA WBC esterase, nitrate positive AP Fever Possible complicated UTI Follow urine CS, Cefepime Will relay to AM provider.
[2021-02-24] MEDS: PROPRANOLOL HCL 10 MG TAB PO SCH ×2 (00:11→08:21)
[2021-02-24] MEDS: LACTATED RINGER'S 1,000 ML IV SCH ×2 (03:03→08:26)
[2021-02-24] MEDS: GABAPENTIN 600 MG TAB PO SCH (05:37)
[2021-02-24 08:04] LABS: Hemoglobin 13.8 g/dL (14.0-18.0); Mean Corpuscular Hemoglobin 35.4 pg (25-34); Mean Corpuscular Hgb Conc 34.5 g/dL (32-36); Mean Corpuscular Volume 102.6 fL (80-100); Mean Platelet Volume 10.6 fL (7.4-10.4); Platelet Count 144 K/uL (130-400); RDW Coefficient of Variation 13.3 % (11.5-14.5); RDW Standard Deviation 49.8 fL (36.4-46.3); White Blood Count 9.08 K/uL (4.8-10.8)
[2021-02-24] MEDS: NICOTINE 21 MG/24 HR TDSY TD SCH (08:20)
[2021-02-24] MEDS: FOLIC ACID 1 MG in SYRINGE 9.8 ML IV SCH (08:20)
[2021-02-24] MEDS: THIAMINE HCL 100 MG in SYRINGE 9 ML IV SCH (08:20)
[2021-02-24 08:24] LABS: Hepatitis B Surf Ag Rflx Conf Neg (Neg)
[2021-02-24 08:38] LABS: Alanine Aminotransferase 93 U/L (12-78); Albumin Level 2.6 gm/dl (3.4-5.0); Aspartate Aminotransferase 94 U/L (15-37); BUN Creatinine Ratio 17.8 (10-20); Blood Urea Nitrogen 7 mg/dl (7-18); Calcium 8.6 mg/dl (8.5-10.1); Carbon Dioxide 26 mmol/L (21-32); Chloride 102 mmol/L (98-107); Est GFR (African American) > 150.0 ml/min; Est GFR (Non-African American) > 150.0 ml/min; Glucose 70 mg/dl (70-99); Lipase 814 U/L (73-393); Magnesium 1.4 mg/dl (1.8-2.4); Potassium 3.2 mmol/L (3.5-5.1); Sodium 136 mmol/L (136-145)
[2021-02-24 08:49] LABS: Albumin Globulin Ratio 0.8 (0.9-2); Alkaline Phosphatase 150 U/L (45-117); Bilirubin,Total 2.2 mg/dl (0.2-1); Globulin 3.1 gm/dl (2.5-4.0); Phosphorus 2.7 mg/dl (2.5-4.9); Total Protein 5.7 gm/dl (6.4-8.2)
[2021-02-24 08:53] LABS: Hepatitis C IgG 13Yrs+Old_Rflx Neg (Neg)
[2021-02-24] MEDS: CEFEPIME 2,000 MG/20 ML VIAL IV SCH ×2 (11:10)
[2021-02-24] MEDS: PANTOprazole 40 MG in SYRINGE 0 ML IV SCH (11:10)
--- NOTE | 2021-02-24 13:01 | Discharge Summary ---
Date of Service February 24, 2021 Admission HPI Per Admitting Provider This is a 35-year-old male who has significant past medical history of hypertension, migraine, tobacco use, alcohol abuse who presents to ED secondary to epigastric abdominal pain, nausea, vomiting and diarrhea times approximately 12 hours. He was in his normal state of health until 1:45 AM. He woke up with severe epigastric abdominal pain that radiated to right chest wall, nothing made pain better or worse, associated with nausea, vomiting yellow liquid, and diarrhea. He has had similar episodes in the past dating back to after he had his cholecystectomy in 06/2020. He would have similar symptoms that would last a few hours and resolve on their own. Further c/o heartburn. He also admits to drinking 2-3 alcoholic beverages nightly. Each beverage has approximately 1-2 vodka shots. His is at bedside and states that she has had pancreatitis and knows how it feels. He denies any recent illness, fever, chills, sweats, lightheadedness, dizziness, chest pain, shortness of breath, cough, URI symptom s, hematemesis, melena, hematochezia, constipation, dysuria, increased urgency or frequency with urination. He complains of feeling shaky. In ED he remained hemodynamically stable although he was significantly hypertensive. Lab work notable for WBC 11.67k H&H 15.7 and 45.4, potassium 3.1, glucose 110, total bilirubin 1.1, AST 375, ALT 226, alk phos 216, lipase 4170. CT abdomen pelvis revealed moderate interstitial edematous pancreatitis with no peripancreatic fluid collections. Hepatomegaly with hepatic steatosis was also noted. His last beverage was approximately last evening at 9 PM. Admission Exam Per Admitting Provider Constitutional: WD/WN, acutely ill appearing M, vomiting, vitals as above, NAD, sitting up in bed, answers questions approp Head: Normocephalic, Atraumatic Eyes: PERRL, conjunctivae normal, anicteric sclerae ENMT: external ear and nose normal, oropharynx normal dry membranes Neck: trachea midline, no thyromegaly normal visual inspection Respiratory: normal respiratory effort, lungs clear to auscultation, no wheeze, rales, rhonchi. Normal insp/exp effort, no accessory muscle use Cardiovascular: RRR, no murmur, no edema Vessels: no JVD or carotid bruit Chest: normal inspection of chest Abdomen: normal bowel sounds, firm, epigastric tenderness, ND Musculoskeletal: no cyanosis or clubbing, extremities motor strength 5/5 Skin: no rashes, warm and dry normal turgor Neurologic: PERRL, EOMI, accommodation nl, no face palsy, no dysarthria CN's II-XI intact bilaterally and moves all extremities Psychiatric: A+Ox3, euthymic affect Lymphatic: no cervical or axillary lymphadenopathy : deferred Principal Diagnosis (1) Acute pancreatitis: (2) Transaminitis: (3) Macrocytosis without anemia: (4) Alcohol abuse: Discharge Exam ROS-No Headache, No Visual Changes, No Nausea, No Vomiting, No Fever, No Chills, No Neck Pain or Stiffness, No Chest Pain, No Palpitations, No SOB, No DOTSON, No Cough, No Sputum, No Wheezing, No Abdominal Pain, No Diarrhea, No Hematemesis, No Hemoptysis, No Unexpected Weight Loss, No Flank pain, No Melena, No Hematochezia, No Frequency, No Urgency, No Burning, No Hematuria, No Rashes, No Diaphoresis. Appetite is Normal Physical Exam Gen-AAO x 3, NAD, Afebrile Head-NCAT, EOMI, PERRLA, Anicteric Sclera, No Posterior Pharyngeal Erythema Neck-Supple, No JVD, No Thyromegaly, No Masses, No LAD, No Bruits Lungs-Clear to Auscultation Bilaterally, No Rales, No Rhonchi, No Wheezing, No Crepitus Chest-No S4, +S1, +S2, No S3, No Murmurs, No Rubs, No Gallops, No Ectopy Abdomen-Soft, Bowel Sounds Present, Non Tender, Non Distended, No Hepatomegaly, No Splenomegaly, No Palpable Masses, No Rebound, No Rigidity, No Guarding Musculoskeletal-Full Range of Motion Bilaterally, No CVAT Extremities-No Cyanosis, No Clubbing, No Edema Nuero-Cranial Nerves II-XII grossly intact, Motor WNL, DTRs WNL, Strength WNL, Non Focal Psych-Normal Mood Discharge Data Allergies Allergy/AdvReac Type Severity Reaction Status Date / Time erythromycin base Allergy Unknown seizure Verified 02/22/21 10:23 Consultations 02/22/21 12:43 ED Decision to Admit Stat 02/22/21 12:48 Consult Gastroenterology Routine Ordered Studies 02/22/21 10:36 CT abd pelvis IV con only Stat Current Diagnoses Elevated white blood cell count, unspecified (02/22/21) Other specified diseases of blood and blood-forming organs (02/22/21) Alcohol abuse, uncomplicated (02/22/21) Migraine, unspecified, not intractable, without status migrainosus (02/22/21) Essential (primary) hypertension (02/22/21) Alcohol induced acute pancreatitis without necrosis or infection (02/22/21) Elevation of levels of liver transaminase levels (02/22/21) Tobacco use (02/22/21) Allergies erythromycin base Allergy (Unknown, Verified 02/22/21 10:23) seizure Height/Weight/Isolation Height 5 ft 11 in Weight 75.9 kg Chemistry 02/22/21 02/23/21 02/24/21 22:15 05:38 07:06 Sodium 136 136 Potassium 4.1 D 4.0 3.2 L D Chloride 102 102 Carbon Dioxide 29 26 Anion Gap 5.0 8.0 BUN 12 7 D Creatinine 0.58 L 0.37 L Glucose 83 70 Urinalysis 02/22/21 14:20 Urine Color Dark Yellow Urine Appearance Clear Urine pH 6.0 Ur Specific [place] > 1.045 H Urine Protein 1+ H Urine Glucose (UA) Negative Urine Ketones Negative Urine Blood Negative Urine Nitrite Positive A Urine Bilirubin 1+ H Microbiology 02/23/21 07:15 Urine,Clean Catch Urine Culture - Preliminary Pin-point growth present, reincubating. Hospital Course (1) Acute pancreatitis: (2) Transaminitis: (3) Macrocytosis without anemia: (4) Alcohol abuse: 35-year-old male with PMH of HTN, migraine, tobacco use, alcohol abuse [4-5 drinks of vodka per patient, maximum of 1 L of vodka per day at times per ] presented to the ED 02/22 with complaint of epigastric abdominal pain associated with nausea vomiting and diarrhea for approximately 12 hours. He is being managed the floor for the following: #. Pancreatitis likely secondary to alcoholic: Status post cholecystectomy and pancreatectomy, CTAP negative for biliary ductal dilation or choledocholithiasis. Continue with IVF, pain control GI on board: On clear liquid from 02/23 evening, can DC once patient tolerates p.o. advises avoiding ethanol for the next 6 weeks. #. Elevated blood glucose level: Patient gives history of recurrent epigastric pain in the past, will rule out diabetes with A1c. #. Elevated blood pressure: Likely secondary to pain from acute pancreatitis. Improved #. Electrolytes: Monitor daily, replaced. #. Transaminitis: Likely secondary to pancreatitis Sent hepatic panel, pending #. Hepatic steatosis: Likely secondary to alcohol abuse Advised quitting alcohol #. Alcohol abuse: Close monitoring for possible withdrawal. History of 3-6 shots of vodka per day per patient. ISAAC protocol. Replace folate/thiamine. Continue magnesium monitoring daily. #. Macrocytosis: Likely secondary to alcohol abuse. Vitamin B12 within normal limit, folate deficient. Continue with folate supplementation upon discharge. DC today on Serax, thiamine, and folate Total Time Total Time Spent Total Time Spent (In Minutes): 45 mins Total Time Includes: Examination of the Patient, Discharge Planning, Medication Reconciliation and Communication With Other Providers Discharge Plan Discharge Items Patient Disposition: Home - Self-Care Reason For Visit: ACUTE PANCREATITIS Discharge Diagnosis: (1) Acute pancreatitis: (2) Transaminitis: (3) Macrocytosis without anemia: (4) Alcohol abuse: Condition on Discharge: Good Activity: Resume your previous activity Lifting: Gradually increase as tolerated Bathing: No limitations Sexual Activity: When tolerated Exercise/Sports: Gradually increase as tolerated Driving/Machine Use: No limitations Weightbearing: Full weightbearing Non-emergency contact: Primary Care Provider Call non-emergency contact if: you have any medication questions Follow-up/Referrals: Dheeraj Tee MD [Primary Care Provider] - (Date & Time 02/26/2021 3:00 PM Provider Dheeraj Tee MD [facility] ) Diet: Regular Addtl Attending Provider Instructions: If your abd pain returns go back on a clear diet Pending Studies at Discharge: No Stand-Alone Forms: My [employer], Smoking Cessation Medications and DC Order Prescriptions: New thiamine HCl (vitamin B1) 100 mg tablet 100 mg PO DAILY Qty: 30 RF: 0 folic acid 1 mg tablet 1 mg PO DAILY Qty: 30 RF: 0 oxazepam 15 mg capsule 15 mg PO Q8H PRN (Reason: alcohol withdrawal) Qty: 14 RF: 0 potassium chloride 20 mEq tablet extended release 20 meq PO TID Qty: 30 RF: 0 Continued pindolol 10 mg tablet 10 mg PO BID RF: 0 famotidine 40 mg tablet 40 mg PO HS RF: 0 ondansetron 8 mg tablet,disintegrating 8 mg PO TID RF: 0 pantoprazole 20 mg tablet,delayed release (DR/EC) 40 mg PO QAM RF: 0 Excedrin Migraine 250-250-65 mg Tablet 1 tab PO Q6H PRN (Reason: Headache) RF: 0 Discontinued prednisone 10 mg tablet 10 - 50 mg PO DAILY RF: 0 Discharge Orders: Discharge Order (Routine); Ordered 02/24/21 Ordered By: Fahad Cast Admission Data Admit Date/Time: 02/22/21 15:20 Attending Provider: Fahad Cast Admit Provider: Josefina Govea Primary Care Provider: Dheeraj Tee Other Providers: Susi Keen ; Josefina Govea
[2021-02-24] MEDS ORDERED: GABAPENTIN 600 MG TAB PO SCH (18:00)
[2021-02-25 13:30] LABS: Hepatitis A Antibody IgM NON-REACTIVE (NON-REACTIVE); Hepatitis B Core Antibody IgM NON-REACTIVE (NON-REACTIVE)
[2021-02-26] MEDS ORDERED: GABAPENTIN 600 MG TAB PO SCH (06:00)
== END 2021-02-24 14:19 | disposition home or self-care (01) | DRG 439 ==
LOC: ED 10:06 → SUATTDRO 15:20 → 2N 15:20

== ENCOUNTER 2021-10-19 18:39 | Observation (INO) ==
[2021-10-19] MEDS ORDERED: EPINEPHrine ADULT AUTO-INJECT 0.3 MG SYR IM ONE (18:58)
[2021-10-19] MEDS ORDERED: ONDANSETRON INJ 2 MG/ML 2 ML VIAL ONE (19:09)
[2021-10-19] MEDS ORDERED: diphenhydrAMINE 50 MG/ML VIAL IV STA (19:10)
[2021-10-19] MEDS ORDERED: ONDANSETRON INJ 2 MG/ML 2 ML VIAL IV STA (19:10)
[2021-10-19] MEDS ORDERED: FAMOTIDINE 20MG IV PUSH 20 MG/5 ML SYR IV STA (19:10)
[2021-10-19] MEDS ORDERED: SODIUM CHLORIDE 0.9% 1000ML 500 ML IV ONE (19:10)
--- NOTE | 2021-10-19 19:23 | Emergency Department Note ---
Impression & Plan Acute anaphylaxis, Allergic reaction, Lip swelling, Facial swelling ED Provider Note NAME: JERSON FISHER AGE: 35 SEX: M : 1985 ARRIVES VIA: Ambulance INFORMANT: [Patient] ED PROVIDER(S): [John Paul Hughes MD] CHIEF COMPLAINT: Allergic reaction the patient is a 35-year-old male who presents to the ER with an allergic reaction. The patient states that HISTORY OF PRESENT ILLNESS: Early this morning at around 1:30 in the AM, he woke up itching with hives. Patient had ingested shrimp during dinner the evening before. He has no food allergies. The patient states that he seemed fine throughout the day. He had shrimp again around noon. Today, about 1 hour and 30 minutes ago, he developed some itching and hives. He had just finished dinner. He did not have shrimp for dinner. He took 50 mg of oral Benadryl. Things worsened and his lips and eyes began to swell. EMS was called. In route, the patient was given 0.3 mg of epinephrine IM, 50 mg of IV Benadryl, 125 mg of IV Solu-Medrol and some IV Zofran. He presents feeling a bit better but still has some lip swelling. The patient denies any recent insect bite or stings. He states that he has neve r had a food allergy before. He does not do well with erythromycin however, he has no other medication allergies. REVIEW OF SYSTEMS: See HPI for pertinent positives and negatives. A total of ten systems were reviewed and were otherwise negative. PMHx/PSHx: See Below SOCIAL HISTORY: See Below. PHYSICAL EXAM: GENERAL: Patient is in no acute distress. HEENT: No acute trauma, normocephalic atraumatic, mucous membranes moist, no nasal congestion, no scleral icterus. His upper and lower lips are a bit edematous, the tongue is a bit swollen. The posterior pharynx has no swelling and there is no uvular edema. NECK: No stridor, no adenopathy, no meningismus, trachea is midline. LUNGS: Clear to auscultation bilaterally, no wheeze, no rhonchi, breath sounds equal. HEART: Without murmurs gallops or rubs, regular rate and rhythm. ABDOMEN: Soft, nontender, bowel sounds positive, no hernias, no peritonitis. EXTREMITIES: No cyanosis or edema, full range of motion of all the joints witho ut pain or difficulty, no signs for acute trauma. NEUROLOGIC: Oriented x 3, no acute motor or sensory deficits, no focal weakness. SKIN: No rash, no jaundice, no diaphoresis. DIFFERENTIAL DIAGNOSIS: Acute allergic reaction, anaphylaxis, wheezing, uvular edema, food allergy, med ication allergy, insect bite or sting, angioedema, among others. EMERGENCY DEPARTMENT COURSE/PROCEDURES: ECG: Indication was shortness of breath. The ECG shows a normal sinus rhythm with a rate of 84. There is no ST elevation, no PVCs. The QTc is 437. Continuous Cardiac Monitoring: An order was placed for continuous cardiac monitoring. The monitor shows a rate of 87 with normal sinus rhythm. Observation Note: The patient has a family history of hypertension. Patient was first seen at 1920 and observation began at 1920 and was necessary in order to monitor his airway and respiratory status. Upon reevaluation, over 4 hours of observation revealed that the patient should be admitted to the hospital. MEDICAL DECISION MAKING: There is a marked leukocytosis at 32,000, this is likely from his stress and epinephrine administration. There is a normal hemoglobin. Platelet count slightly elevated. No significant electrolyte abnormality or renal failure. No concerning liver enzyme elevation. Tryptase level is pending. TSH is pending. Covid test returned negative. Chest film did not show pneumonia, CHF or mediastinal widening. ECG showed a normal sinus rhythm, no ST elevation, no ischemia. The patient presents with an allergic reaction and anaphylaxis. He had received multiple meds in the field as noted above. Here in the ED, he was given IV Pepcid, 20 mg. He received IV Zofran, IV saline, IV Benadryl. He was given a second dose of IM epinephrine 0.3 mg. The patient was watched here for over 4 hours, his lip swelling did improve some. He was not hypoxic. The patient is still demonstrating some lip edema and facial swelling. I do not think he is stable for discharge home. He has received multiple doses of medications for anaphylaxis. I do think a hospital stay and further observation is warranted. I spoke with the patient and case management. The on-call hospitalist was consulted. Past Med/Surg History Medical History Alcohol abuse GERD (gastroesophageal reflux disease) HTN (hypertension) Migraine Tobacco abuse Surgical History (Updated 02/22/21 @ 15:03 by Kirstie Mancini PA-C) History of colonoscopy History of esophagogastroduodenoscopy (EGD) History of umbilical hernia repair 06/2020 Hx of appendectomy S/P cholecystectomy 06/2020 Family History Brother Hypertension Grandfather (Paternal) Parkinson disease Social History Smoking Status: Current every day smoker Tobacco Type: Cigarettes packs per day: 1.5; Years Smoked: 10; Cigarettes Per Day: 30; Second Hand Exposure: Yes; Hx Alcohol Use: Yes Alcohol type: hard liquor Alcohol type Comment: vodka Alcohol Intake Frequency Comment: night; 2-3 drinks with 3-6 shots of vodka total Hx Substance Use: No Preferred Language: Turkmen Communication Ability: Effective Beliefs That Will Affect Care: None marital status: Current Living Situation: Spouse Current Living Situation Comment: home with and four children. current occupational status: employed Feels Safe at Home: Yes Assistive Devices: None Allergies Allergies Allergy/AdvReac Type Severity Reaction Status Date / Time erythromycin base Allergy Unknown seizure Verified 10/19/21 23:05 Home Meds Home Medications Medication Instructions Recorded Confirmed famotidine 40 mg tablet 40 mg PO HS 02/22/21 10/19/21 ondansetron 8 mg disintegrating 8 mg PO TID PRN 02/22/21 10/19/21 tablet pindolol 10 mg tablet 10 mg PO BID 02/22/21 10/19/21 buprenorphine HCl 8 mg sublingual 8 mg SUBLINGUAL TID 10/19/21 10/19/21 tablet chlorthalidone 25 mg tablet 25 mg PO QAM 10/19/21 10/19/21 cyclobenzaprine 5 mg tablet 5 mg PO TID PRN 10/19/21 10/19/21 montelukast 10 mg tablet 10 mg PO DAILY 10/19/21 10/19/21 pantoprazole 40 mg tablet,delayed 40 mg PO BID 10/19/21 10/19/21 release potassium chloride 10 mEq 20 meq PO BID 10/19/21 10/19/21 capsule,extended release Results & Data (ED) Vital Signs Vital Signs - 24 hr 10/19/21 18:24 10/19/21 18:55 10/19/21 20:20 Temperature 36.8 C Temperature Source Oral Pulse Rate 87 Pulse Rate [Left Radial] 83 80 Pulse Rhythm Regular Pulse Rhythm [Left Radial] Regular Regular Pulse Strength Normal Respiratory Rate 20 18 20 Respiratory Effort / Characteristics Non-Labored Non-Labored Spontaneous Non-Labored Respiratory Depth Normal Normal Normal Blood Pressure 122/86 Blood Pressure [Left Arm] 180/103 H 101/68 Blood Pressure Mean 98 Blood Pressure Mean [Left Arm] 128 79 Blood Pressure Position Lying Blood Pressure Position [Left Arm] Lying Pulse Oximetry 100 99 99 Oxygen Delivery Method Room Air Room Air Nasal Cannula Oxygen Flow Rate 3 Sepsis Recent Fever Within 48 Hours No Sepsis New/Unexplained Change in Mental Status N/A Sepsis Action Taken by Nursing No Action Required 10/19/21 22:00 Temperature Temperature Source Pulse Rate Pulse Rate [Left Radial] 76 Pulse Rhythm Pulse Rhythm [Left Radial] Regular Pulse Strength Respiratory Rate 20 Respiratory Effort / Characteristics Non-Labored Respiratory Depth Normal Blood Pressure Blood Pressure [Left Arm] 106/66 Blood Pressure Mean Blood Pressure Mean [Left Arm] 79 Blood Pressure Position Blood Pressure Position [Left Arm] Lying Pulse Oximetry 99 Oxygen Delivery Method Nasal Cannula Oxygen Flow Rate 2 Sepsis Recent Fever Within 48 Hours Sepsis New/Unexplained Change in Mental Status Sepsis Action Taken by Snf Medications Current Medication List: was personally reviewed by me Laboratory Data Attestation: I reviewed the patient's lab results. Result diagrams: 10/19/21 19:24 10/19/21 20:32 Lab Results 10/19/21 10/19/21 10/19/21 Range/Units 19:24 19:24 20:32 WBC 32.76 H* (4.8-10.8) K/uL RBC 5.15 (4.7-6.1) M/uL Hgb 16.8 (14.0-18.0) g/dL Hct 49.0 (42-52) % MCV 95.1 (80-100) fL MCH 32.6 (25-34) pg MCHC 34.3 (32-36) g/dL RDW Std Deviation 45.0 (36.4-46.3) fL RDW Coeff of Jeremie 13.0 (11.5-14.5) % Plt Count 413 H (130-400) K/uL MPV 10.2 (7.4-10.4) fL Immature Gran % (Auto) 0.5 % Neut % (Auto) 79.5 % Lymph % (Auto) 12.1 % [place] % (Auto) 5.8 % Eos % (Auto) 1.9 % Baso % (Auto) 0.2 % Neut # (Auto) 26.03 H (1.4-6.5) K/uL Lymph # (Auto) 3.97 H (1.2-3.4) K/uL [place] # (Auto) 1.90 H (0.11-0.59) K/uL Eos # (Auto) 0.63 H (0-0.5) K/uL Baso # (Auto) 0.05 (0-0.2) K/uL Immature Gran # (Auto) 0.18 H (0.00-0.02) K/uL Sodium 137 (136-145) mmol/L Potassium 3.7 (3.5-5.1) mmol/L Chloride 103 (98-107) mmol/L Carbon Dioxide 28 (21-32) mmol/L Anion Gap 6 (3-11) BUN 16 (6-23) mg/dl Creatinine 1.04 (0.6-1.4) mg/dl Est Cr Clr Drug Dosing 104.6 ml/min Est GFR ( Amer) 106.6 ml/min Est GFR (Non-Af Amer) 91.9 ml/min BUN/Creatinine Ratio 15.4 (10-20) Glucose 103 H (70-99(Fasting)) mg/dl Calcium 8.9 (8.5-10.1) mg/dl Total Bilirubin 0.4 (0.2-1.0) mg/dl AST 32 (13-39) U/L ALT 25 (7-52) U/L Alkaline Phosphatase 90 (34-104) U/L Total Protein 6.4 (6.0-8.3) gm/dl Albumin 3.6 (3.4-5.0) gm/dl Globulin 2.8 (2.5-4.0) gm/dl Albumin/Globulin Ratio 1.3 (0.9-2) SARS-CoV-2, RNA, NAAT (NEGATIVE) 10/19/21 Range/Units 23:15 WBC (4.8-10.8) K/uL RBC (4.7-6.1) M/uL Hgb (14.0-18.0) g/dL Hct (42-52) % MCV (80-100) fL MCH (25-34) pg MCHC (32-36) g/dL RDW Std Deviation (36.4-46.3) fL RDW Coeff of Jeremie (11.5-14.5) % Plt Count (130-400) K/uL MPV (7.4-10.4) fL Immature Gran % (Auto) % Neut % (Auto) % Lymph % (Auto) % [place] % (Auto) % Eos % (Auto) % Baso % (Auto) % Neut # (Auto) (1.4-6.5) K/uL Lymph # (Auto) (1.2-3.4) K/uL [place] # (Auto) (0.11-0.59) K/uL Eos # (Auto) (0-0.5) K/uL Baso # (Auto) (0-0.2) K/uL Immature Gran # (Auto) (0.00-0.02) K/uL Sodium (136-145) mmol/L Potassium (3.5-5.1) mmol/L Chloride (98-107) mmol/L Carbon Dioxide (21-32) mmol/L Anion Gap (3-11) BUN (6-23) mg/dl Creatinine (0.6-1.4) mg/dl Est Cr Clr Drug Dosing ml/min Est GFR ( Amer) ml/min Est GFR (Non-Af Amer) ml/min BUN/Creatinine Ratio (10-20) Glucose (70-99(Fasting)) mg/dl Calcium (8.5-10.1) mg/dl Total Bilirubin (0.2-1.0) mg/dl AST (13-39) U/L ALT (7-52) U/L Alkaline Phosphatase (34-104) U/L Total Protein (6.0-8.3) gm/dl Albumin (3.4-5.0) gm/dl Globulin (2.5-4.0) gm/dl Albumin/Globulin Ratio (0.9-2) SARS-CoV-2, RNA, NAAT NEGATIVE (NEGATIVE) Administered Medications Discontinued Medications Diphenhydramine HCl (Diphenhydramine 50 Mg/Ml Vial) 25 mg IV NOW STA Stop: 10/19/21 19:11 Last Admin: 10/19/21 19:39 Dose: 25 mg Documented by: [id number] Epinephrine HCl (Epinephrine Adult Auto-Inject 0.3 Mg Syr) Confirm Administered Dose 0.3 mg IM .STK-MED ONE Stop: 10/19/21 18:59 Last Admin: 10/19/21 19:02 Dose: 0.3 mg Documented by: [id number] Famotidine (Pepcid 20mg Iv Push) 20 mg in 5 mls @ 2.5 mls/min IV NOW STA Stop: 10/19/21 19:11 Last Admin: 10/19/21 19:39 Dose: 2.5 mls/min Documented by: [id number] Sodium Chloride (Nss 1000ml) 500 mls @ 999 mls/hr IV .Q31M ONE Stop: 10/19/21 19:40 Last Infusion: 10/19/21 20:12 Dose: 0 mls/hr Documented by: [id number] Admin: 10/19/21 19:26 Dose: 999 mls/hr Documented by: [id number] Ondansetron HCl (Ondansetron Inj 2 Mg/Ml 2 Ml Vial) Confirm Administered Dose 4 mg .ROUTE .STK-MED ONE Stop: 10/19/21 19:10 Last Admin: 10/19/21 19:11 Dose: 4 mg Documented by: [id number] Ondansetron HCl (Ondansetron Inj 2 Mg/Ml 2 Ml Vial) 4 mg IV NOW STA Stop: 10/19/21 19:11 Last Admin: 10/19/21 19:26 Dose: 4 mg Documented by: [id number] Imaging Data Radiologist's Impression: Chest X-Ray 10/19/21 19:10 SINGLE VIEW CHEST CLINICAL HISTORY: Dyspnea. FINDINGS: An AP, portable, upright chest radiograph is compared to study dated 02/22/2021. The cardiomediastinal silhouette is unremarkable. There is mild b ibasilar atelectasis. The lungs and pleural spaces are otherwise clear. No pneumothorax is seen. The bony thorax is grossly intact. IMPRESSION: No active disease in the chest. ACT 112: Negative or not required by law. Electronically signed by: John Paul Scott M.D. 10/19/2021 8:14 PM Discharge Plan Visit Data Chief Complaint: Allergic Reaction ED Provider: John Paul Hughes Discharge Problem: Acute anaphylaxis, Allergic reaction, Lip swelling, Facial swelling Patient Disposition: Admitted As Inpatient Condition: Fair Forms Stand Alone Forms: [facility] Prescriptions Prescriptions: No Action pindolol 10 mg tablet 10 mg PO BID RF: 0 famotidine 40 mg tablet 40 mg PO HS RF: 0 ondansetron 8 mg tablet,disintegrating 8 mg PO TID PRN (Reason: Nausea) RF: 0 buprenorphine HCl 8 mg tablet, sublingual 8 mg SUBLINGUAL TID RF: 0 cyclobenzaprine 5 mg tablet 5 mg PO TID PRN (Reason: Muscle Spasm) RF: 0 chlorthalidone 25 mg tablet 25 mg PO QAM RF: 0 pantoprazole 40 mg tablet,delayed release (DR/EC) 40 mg PO BID RF: 0 montelukast 10 mg tablet 10 mg PO DAILY RF: 0 potassium chloride 10 mEq capsule, extended release 20 meq PO BID RF: 0 Referrals Referrals: Dheeraj Tee MD [Primary Care Provider] -
[2021-10-19 20:01] LABS: Basophils # (auto) 0.05 K/uL (0-0.2); Basophils % (auto) 0.2 %; Eosinophils # (auto) 0.63 K/uL (0-0.5); Eosinophils % (auto) 1.9 %; Hemoglobin 16.8 g/dL (14.0-18.0); Immature Granulocytes # (auto) 0.18 K/uL (0.00-0.02); Immature Granulocytes % (auto) 0.5 %; Lymphocytes # (auto) 3.97 K/uL (1.2-3.4); Lymphocytes % (auto) 12.1 %; Mean Corpuscular Hemoglobin 32.6 pg (25-34); Mean Corpuscular Hgb Conc 34.3 g/dL (32-36); Mean Corpuscular Volume 95.1 fL (80-100); Mean Platelet Volume 10.2 fL (7.4-10.4); Monocytes % (auto) 5.8 %; Neutrophils # (auto) 26.03 K/uL (1.4-6.5); Neutrophils % (auto) 79.5 %; Platelet Count 413 K/uL (130-400); Red Blood Count 5.15 M/uL (4.7-6.1); White Blood Count 32.76 K/uL (4.8-10.8)
[2021-10-19 20:02] LABS: Albumin Globulin Ratio 1.3 (0.9-2); Albumin Level 3.6 gm/dl (3.4-5.0); BUN Creatinine Ratio 15.4 (10-20); Bilirubin,Total 0.4 mg/dl (0.2-1.0); Calcium 8.9 mg/dl (8.5-10.1); Creatinine Clr Calc Pharmacy 104.6 ml/min; Est GFR (African American) 106.6 ml/min; Est GFR (Non-African American) 91.9 ml/min; Globulin 2.8 gm/dl (2.5-4.0); Total Protein 6.4 gm/dl (6.0-8.3)
--- NOTE | 2021-10-19 20:15 | XRay Report ---
SINGLE VIEW CHEST CLINICAL HISTORY: Dyspnea. FINDINGS: An AP, portable, upright chest radiograph is compared to study dated 02/22/2021. The cardiom ediastinal silhouette is unremarkable. There is mild bibasilar atelectasis. The lungs and pleural spa a[place]lio are otherwise clear. No pneumothorax is seen. The bony thorax is grossly intact. IMPRESSION: No active disease in the chest. ACT 112: Negative or not required by law. Electronically signed by: JohnP aul Scott M.D. 10/19/2021 8:14 PM
[2021-10-19 21:15] LABS: Potassium 3.7 mmol/L (3.5-5.1)
[2021-10-19] MEDS ORDERED: MULTI-VITAMIN INFUSION 10 ML, THIAMINE HCL 100 MG, FOLIC ACID 1 MG in SODIUM CHLORIDE 0... IV STA (23:37)
--- NOTE | 2021-10-20 00:08 | History & Physical Report ---
Date of Service October 20, 2021 Assessment & Plan (1) Hypersensitivity reaction: Plan: Likely secondary to shrimp Marked improvement after intervention by EMS and ER provider. hypertension, BP on the lower side Chronic anemia, hemoglobin better to baseline secondary to hemoconcentration chronic pain on buprenorphine ongoing tobacco/alcohol abuse OBS Medical telemetry Add shrimp to patient's allergy list Daily loratadine for now Benadryl as needed recurrent allergic reaction May need additional steroid medication IVF ISAAC S, DT precautions Nicotine patch DVT prophylaxis per Lovenox subcu Full code Text document was generated using [employer] voice recognition software. It may contain grammatical or spelling errors. Kindly contact undersigned for clarification of any documentation item in question. History of Present Illness Chief Complaint: Allergic reaction Primary Care Provider: Dheeraj Tee MD History obtained from patient and records. Medical history significant for hypertension, fatty liver as per records, chronic anemia (baseline hemoglobin 12-13 ), chronic pain on buprenorphine, ongoing tobacco/alcohol abuse. Last confinement at [facility] April 2021 for alcoholic pancreatitis. Patient signed out AGAINST MEDICAL ADVICE. 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 Recalls shrimp ingestion during dinner. No prior reactions. Symptoms relieved by Benadryl intake. Patient consumed shrimp again during lunchtime yesterday. Subsequent recurrence of itching and hives. Benadryl intake ineffective. Subsequent swelling of the lips and eyes. Patient denies chest pain shortness of breath. Patient called EMS. Patient given epinephrine, Benadryl, and Solu-Medrol and Zofran en route to the ER. Improved swelling upon arrival at the ER. 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 Allergies Allergy/AdvReac Type Severity Reaction Status Date / Time shrimp Allergy Severe facial Verified 10/20/21 00:07 swelling erythromycin base Allergy Unknown seizure Verified 10/19/21 23:05 Home Medications Medication Instructions Recorded Confirmed Type famotidine 40 mg tablet 40 mg PO HS 02/22/21 10/19/21 History ondansetron 8 mg disintegrating 8 mg PO TID PRN 02/22/21 10/19/21 History tablet pindolol 10 mg tablet 10 mg PO BID 02/22/21 10/19/21 History buprenorphine HCl 8 mg sublingual 8 mg SUBLINGUAL TID 10/19/21 10/19/21 History tablet chlorthalidone 25 mg tablet 25 mg PO QAM 10/19/21 10/19/21 History cyclobenzaprine 5 mg tablet 5 mg PO TID PRN 10/19/21 10/19/21 History montelukast 10 mg tablet 10 mg PO DAILY 10/19/21 10/19/21 History pantoprazole 40 mg tablet,delayed 40 mg PO BID 10/19/21 10/19/21 History release potassium chloride 10 mEq 20 meq PO BID 10/19/21 10/19/21 History capsule,extended release Past Med/Surg History Medical History Alcohol abuse GERD (gastroesophageal reflux disease) HTN (hypertension) Migraine Tobacco abuse Surgical History (Updated 02/22/21 @ 15:03 by Kirstie Mancini PA-C) History of colonoscopy History of esophagogastroduodenoscopy (EGD) History of umbilical hernia repair 06/2020 Hx of appendectomy S/P cholecystectomy 06/2020 Family History Brother Hypertension Grandfather (Paternal) Parkinson disease Social History Smoking Status: Current every day smoker Tobacco Type: Cigarettes packs per day: 1.5; Years Smoked: 10; Cigarettes Per Day: 30; Second Hand Exposure: Yes; Do You Dip or Chew Tobacco: No; Tobacco Cessation Education Requested by Patient: No Hx Alcohol Use: Yes Alcohol type: hard liquor Alcohol type Comment: vodka Alcohol Intake Frequency Comment: night; 2-3 drinks with 3-6 shots of vodka total Hx Substance Use: No Preferred Language: Guinean Communication Ability: Effective 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 Beliefs That Will Affect Care: None marital status: Current Living Situation: Family Current Living Situation Comment: and four kids current occupational status: employed Other Information That Helps Us Care for You: No Feels Safe at Home: Yes Safety Concerns: Feels Safe At This Time Assistive Devices: None Assistive Devices Comment: Patient uses dentures, does not have them with him Review of Systems Review of Systems: As per HPI, all 10 systems reviewed, all other ROS negative Physical Exam Physical Exam: GENERAL: Comfortable, apathetic, no respiratory distress, no stridor SKIN: Pallor, warm HEENT: Minimal periorbital edema pale palpebral conjunctivae, minimal lip swelling, dry buccal mucosa NECK : Supple, no tenderness CHEST : Decreased breath sounds, no tenderness HEART : RRR, no obvious murmurs ABDOMEN: Some distention, nontender EXTREMITIES : Minimal LE swelling, no LE tenderness, no other conspicuous deformities noted NEUROLOGIC : Coherent, no facial asymmetry, no other gross focality Results & Data Results & Data ([facility]) Vital Signs (Past 12 Hours) Vital Signs Temp Pulse Pulse Resp BP BP Pulse Ox 10/20/21 00:00 75 103/60 98 10/19/21 22:00 76 20 106/66 99 10/19/21 20:20 80 20 101/68 99 10/19/21 18:55 36.8 C 87 18 122/86 99 10/19/21 18:24 83 20 180/103 H 100 Laboratory Results Laboratory Results WBC 32.76 K/uL (4.8-10.8) H* 10/19/21 19:24 RBC 5.15 M/uL (4.7-6.1) 10/19/21 19:24 Hgb 16.8 g/dL (14.0-18.0) 10/19/21 19:24 Hct 49.0 % (42-52) 10/19/21 19:24 MCV 95.1 fL (80-100) 10/19/21 19:24 MCH 32.6 pg (25-34) 10/19/21 19:24 MCHC 34.3 g/dL (32-36) 10/19/21 19:24 RDW Std Deviation 45.0 fL (36.4-46.3) 10/19/21 19:24 RDW Coeff of Jeremie 13.0 % (11.5-14.5) 10/19/21 19:24 Plt Count 413 K/uL (130-400) H 10/19/21 19:24 MPV 10.2 fL (7.4-10.4) 10/19/21 19:24 Immature Gran % (Auto) 0.5 % 10/19/21 19:24 Neut % (Auto) 79.5 % 10/19/21 19:24 Lymph % (Auto) 12.1 % 10/19/21 19:24 [place] % (Auto) 5.8 % 10/19/21 19:24 Eos % (Auto) 1.9 % 10/19/21 19:24 Baso % (Auto) 0.2 % 10/19/21 19:24 Neut # (Auto) 26.03 K/uL (1.4-6.5) H 10/19/21 19:24 Lymph # (Auto) 3.97 K/uL (1.2-3.4) H 10/19/21 19:24 [place] # (Auto) 1.90 K/uL (0.11-0.59) H 10/19/21 19:24 Eos # (Auto) 0.63 K/uL (0-0.5) H 10/19/21 19:24 Baso # (Auto) 0.05 K/uL (0-0.2) 10/19/21 19:24 Immature Gran # (Auto) 0.18 K/uL (0.00-0.02) H 10/19/21 19:24 Sodium 137 mmol/L (136-145) 10/19/21 19:24 Potassium 3.7 mmol/L (3.5-5.1) 10/19/21 20:32 Chloride 103 mmol/L (98-107) 10/19/21 19:24 Carbon Dioxide 28 mmol/L (21-32) 10/19/21 19:24 Anion Gap 6 (3-11) 10/19/21 19:24 BUN 16 mg/dl (6-23) 10/19/21 19:24 Creatinine 1.04 mg/dl (0.6-1.4) 10/19/21 19:24 Est Cr Clr Drug Dosing 104.6 ml/min 10/19/21 19:24 Est GFR ( Amer) 106.6 ml/min 10/19/21 19:24 Est GFR (Non-Af Amer) 91.9 ml/min 10/19/21 19:24 BUN/Creatinine Ratio 15.4 (10-20) 10/19/21 19:24 Glucose 103 mg/dl (70-99(Fasting)) H 10/19/21 19:24 Calcium 8.9 mg/dl (8.5-10.1) 10/19/21 19:24 Total Bilirubin 0.4 mg/dl (0.2-1.0) 10/19/21 19:24 AST 32 U/L (13-39) 10/19/21 20:32 ALT 25 U/L (7-52) 10/19/21 19:24 Alkaline Phosphatase 90 U/L (34-104) 10/19/21 19:24 Total Protein 6.4 gm/dl (6.0-8.3) 10/19/21 19:24 Albumin 3.6 gm/dl (3.4-5.0) 10/19/21 19:24 Globulin 2.8 gm/dl (2.5-4.0) 10/19/21 19:24 Albumin/Globulin Ratio 1.3 (0.9-2) 10/19/21 19:24 SARS-CoV-2, RNA, NAAT NEGATIVE (NEGATIVE) 10/19/21 23:15 Impressions Chest X-Ray 10/19/21 19:10 SINGLE VIEW CHEST CLINICAL HISTORY: Dyspnea. FINDINGS: An AP, portable, upright chest radiograph is compared to study dated 02/22/2021. The cardiomediastinal silhouette is unremarkable. There is mild bibasilar atelectasis. The lungs and pleural spaces are otherwise clear. No pneumothorax is seen. The bony thorax is grossly intact. IMPRESSION: No active disease in the chest. ACT 112: Negative or not required by law. Electronically signed by: John Paul Scott M.D. 10/19/2021 8:14 PM Diagnostic Findings EKG as per my interpretation: Rate 85, NSR, normal axis, T wave abnormality septal leads Code Status & VTE Plan VTE Prophylaxis Plan VTE Prophylaxis will be ordered: Yes
[2021-10-20] MEDS ORDERED: NICOTINE 14 MG/24 HR PATCH TD STA (00:20)
[2021-10-20] MEDS ORDERED: LORATADINE 10 MG TAB PO ONE (02:04)
[2021-10-20] MEDS ORDERED: ATIVAN IV ALCOHOL WITHDRAWL IV PRN (02:21)
[2021-10-20] MEDS ORDERED: ACETAMINOPHEN 325 MG TAB PO PRN (02:21)
[2021-10-20] MEDS ORDERED: diphenhydrAMINE 50 MG/ML VIAL IV PRN (02:21)
[2021-10-20] MEDS ORDERED: LORazepam 2 MG/1 ML VIAL IV PRN ×3 (02:21)
[2021-10-20] MEDS ORDERED: PROMETHAZINE HCL 12.5 MG in SODIUM CHLORIDE 0.9% 50 ML IV PRN (02:21)
[2021-10-20 06:12] LABS: Basophils # (auto) 0.01 K/uL (0-0.2); Basophils % (auto) 0.1 %; Hematocrit (blood only) 41.7 % (42-52); Hemoglobin 14.6 g/dL (14.0-18.0); Immature Granulocytes # (auto) 0.04 K/uL (0.00-0.02); Immature Granulocytes % (auto) 0.2 %; Lymphocytes # (auto) 1.35 K/uL (1.2-3.4); Mean Corpuscular Hemoglobin 32.7 pg (25-34); Mean Corpuscular Volume 93.3 fL (80-100); Mean Platelet Volume 9.8 fL (7.4-10.4); Monocytes # (auto) 0.76 K/uL (0.11-0.59); Monocytes % (auto) 4.5 %; Neutrophils # (auto) 14.71 K/uL (1.4-6.5); Neutrophils % (auto) 87.2 %; Platelet Count 254 K/uL (130-400); RDW Standard Deviation 44.4 fL (36.4-46.3); Red Blood Count 4.47 M/uL (4.7-6.1); White Blood Count 16.87 K/uL (4.8-10.8)
[2021-10-20 06:18] LABS: BUN Creatinine Ratio 21.3 (10-20); Calcium 9.1 mg/dl (8.5-10.1); Est GFR (African American) 133.2 ml/min; Est GFR (Non-African American) 114.9 ml/min; Potassium 4.2 mmol/L (3.5-5.1)
[2021-10-20] MEDS ORDERED: buprenorphine HCL 8 MG SUBL SL SCH (09:00)
[2021-10-20] MEDS ORDERED: methylPREDNISolone 40 MG in SYRINGE 0 ML IV SCH (09:00)
[2021-10-20] MEDS ORDERED: PANTOprazole 40 MG TAB PO SCH (09:00)
[2021-10-20] MEDS ORDERED: ENOXAPARIN INJ 40 MG/0.4 ML SYR SQ SCH (09:00)
[2021-10-20] MEDS ORDERED: METOPROLOL TARTRATE 25 MG TAB PO SCH ×2 (09:00)
[2021-10-20] MEDS ORDERED: MONTELUKAST SODIUM 10 MG TABLET PO SCH (09:00)
--- NOTE | 2021-10-20 11:43 | Discharge Summary ---
Date of Service October 20, 2021 Admission HPI Per Admitting Provider History obtained from patient and records. Medical history significant for hypertension, fatty liver as per records, chronic anemia (baseline hemoglobin 12-13 ), chronic pain on buprenorphine, ongoing tobacco/alcohol abuse. Last confinement at [facility] April 2021 for alcoholic pancreatitis. Patient signed out AGAINST MEDICAL ADVICE. 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 Recalls shrimp ingestion during dinner. No prior reactions. Symptoms relieved by Benadryl intake. Patient consumed shrimp again during lunchtime yesterday. Subsequent recurrence of itching and hives. Benadryl intake ineffective. Subsequent swelling of the lips and eyes. Patient denies chest pain shortness of breath. Patient called EMS. Patient given epinephrine, Benadryl, and Solu-Medrol and Zofran en route to the ER. Improved swelling upon arrival at the ER. 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 Admission Exam Per Admitting Provider GENERAL: Comfortable, apathetic, no respiratory distress, no stridor SKIN: Pallor, warm HEENT: Minimal periorbital edema pale palpebral conjunctivae, minimal lip swelling, dry buccal mucosa NECK : Supple, no tenderness CHEST : Decreased breath sounds, no tenderness HEART : RRR, no obvious murmurs ABDOMEN: Some distention, nontender EXTREMITIES : Minimal LE swelling, no LE tenderness, no other conspicuous deformities noted NEUROLOGIC : Coherent, no facial asymmetry, no other gross focality Principal Diagnosis Hypersensitivity reaction Likely anaphylaxis Discharge Exam GENERAL: Alert and oriented x3. NAD, on RA. Face swelling and lip swelling noted at exam, patient reports it is getting better. HEENT: No pallor, no icterus. Pupils equal, round and reactive to light. Oral mucosa moist. No throat swelling. NECK: No JVD, no neck masses. HEART: S1 and S2 heard. Regular rate and rhythm. No murmur, no gallop. RESPIRATORY SYSTEM: Normal AP diameter. No accessory muscle use. No wheezing, no crackles. ABDOMEN: Soft, bowel sounds present, nontender, no distention. CENTRAL NERVOUS SYSTEM: No facial droop. Speech is clear. Obeys simple commands. Moves extremities. EXTREMITIES: No edema, no erythema seen. Discharge Data Allergies Allergy/AdvReac Type Severity Reaction Status Date / Time shrimp Allergy Severe facial Verified 10/20/21 00:07 swelling erythromycin base Allergy Unknown seizure Verified 10/19/21 23:05 Consultations 10/19/21 23:03 ED Decision to Admit Stat Hospital Course (1) Hypersensitivity reaction: Patient seen and examined at bedside for likely anaphylaxis reaction. Tryptase level pending. Swelling of face and lips getting better, patient does not have any breathing problem. Patient and his were at bedside exam, I wanted to observe the patient overnight, patient wanted to leave and was pretty much adamant about it, by the time I reviewed his medicine and sent his medications to his pharmacy he left AMA. But patient and his were made aware that he needed those medications and auto injector epinephrine to be with him all the time and avoid shrimp. They are also made aware that if any signs or symptoms of anaphylaxis or allergic reaction, they need to contact emergency or call 911 immediately. The medications are sent to the patient's pharmacy. 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 Following instructions were communicated to the patient prior to leaving AMA: Follow-up with your primary care physician within a week time. As discussed at the bedside, establish and maintain follow-up with your driver sales for further evaluation and discussion of your allergic reaction/anaphylaxis. We wanted you to stay overnight, since you wanted to go and have already left AMA by the time I sent over your medications, you are required to take Benadryl/steroid/Pepcid and required to have epinephrine autoinjector with you at all times as discussed at bedside with you and your . If any signs of allergic reaction/anaphylaxis as discussed at the bedside, call 911 or emergency immediately. Take medications as prescribed. Text document was generated using voice recognition software. It may contain grammatical or spelling errors. Kindly contact undersigned for clarification of any documentation item in question. Total Time Total Time Spent Total Time Spent (In Minutes): 45 Discharge Plan Discharge Items Patient Disposition: Against Medical Advice Reason For Visit: HYPERSENSITIVITY REACTION Discharge Diagnosis: Shrimp allergy Likely anaphylactic reaction Condition on Discharge: Fair Activity: Resume your previous activity Non-emergency contact: Primary Care Provider Call non-emergency contact if: you have any medication questions, your pain is not controlled and your temperature is above 101 Follow-up/Referrals: Dheeraj Tee MD [Primary Care Provider] - Diet: Regular Addtl Attending Provider Instructions: Follow-up with your primary care physician within a week time. As discussed at the bedside, establish and maintain follow-up with your driver sales for further evaluation and discussion of your allergic reaction/anaphylaxis. We wanted you to stay overnight, since you wanted to go and have already left AM A by the time I sent over your medications, you are required to take Benadryl/steroid/Pepcid and required to have epinephrine autoinjector with you at all times as discussed at bedside with you and your . If any signs of allergic reaction/anaphylaxis as discussed at the bedside, call 911 or emergency immediately. Take medications as prescribed. Pending Studies at Discharge: Yes (Tryptase level) Stand-Alone Forms: My Unified, Smoking Cessation Medications and DC Order Prescriptions: New famotidine [Pepcid] 20 mg tablet 20 mg PO BID 7 Days Qty: 14 RF: 0 prednisone 20 mg tablet 20 mg PO BID 5 Days Qty: 10 RF: 0 epinephrine 0.3 mg/0.3 mL auto-injector 0.3 mg IM .uda PRN (Reason: anaphylaxis) Qty: 2 RF: 0 diphenhydramine HCl [Benadryl] 25 mg capsule 25 mg PO Q8H PRN (Reason: allergy symptoms) Qty: 30 RF: 0 Continued pindolol 10 mg tablet 10 mg PO BID RF: 0 famotidine 40 mg tablet 40 mg PO HS RF: 0 ondansetron 8 mg tablet,disintegrating 8 mg PO TID PRN (Reason: Nausea) RF: 0 buprenorphine HCl 8 mg tablet, sublingual 8 mg SUBLINGUAL TID RF: 0 cyclobenzaprine 5 mg tablet 5 mg PO TID PRN (Reason: Muscle Spasm) RF: 0 chlorthalidone 25 mg tablet 25 mg PO QAM RF: 0 pantoprazole 40 mg tablet,delayed release (DR/EC) 40 mg PO BID RF: 0 montelukast 10 mg tablet 10 mg PO DAILY RF: 0 potassium chloride 10 mEq capsule, extended release 20 meq PO BID RF: 0 Discharge Orders: Left Against Medical Advice (Routine); Ordered 10/20/21 Ordered By: Josefina Govea Admission Data Admit Date/Time: 10/20/21 00:03 Attending Provider: Josefina Govea Admit Provider: Steve Youngblood Primary Care Provider: Dheeraj Tee Other Providers: Steve Youngblood Other Interventions: Discharge Summary Assessment (RN) Last Done: 10/20/21 10:35
[2021-10-20] MEDS ORDERED: FAMOTIDINE 40 MG TABLET PO SCH (21:00)
--- NOTE | 2021-10-21 06:02 | Electrocardiogram Report ---
Test Reason : Blood Pressure : / mmHG Vent. Rate : 084 BPM Atrial Rate : 084 BPM P-R Int : 162 ms QRS Dur : 078 ms QT Int : 370 ms P-R-T Axes : 037 017 010 degrees QTc Int : 437 ms Normal sinus rhythm Normal ECG When compared with ECG of 22-FEB-2021 10:22, Vent. rate has increased BY 33 BPM QT has lengthened Confirmed by Shaka Gardner ([id number]) on 10/21/2021 6:02:30 AM Referred By: REFERRED SELF Confirmed By:Shaka Gardner
[2021-10-21] MEDS ORDERED: NICOTINE 14 MG/24 HR PATCH TD SCH (09:00)
[2021-10-21] MEDS ORDERED: FOLIC ACID 1 MG TAB PO SCH (09:00)
[2021-10-21] MEDS ORDERED: LORATADINE 10 MG TAB PO SCH (09:00)
[2021-10-21] MEDS ORDERED: THIAMINE HCL 100 MG TAB PO SCH (09:00)
[2021-10-21] MEDS ORDERED: MULTIVITAMIN TAB PO SCH (09:00)
== END 2021-10-20 10:15 | disposition left against medical advice (07) ==
LOC: ED 18:39 → 2E 18:39

== ENCOUNTER 2022-10-19 11:07 | Inpatient (IN) ==
[2022-10-19 11:47] LABS: Basophils # (auto) 0.04 K/uL (0-0.2); Basophils % (auto) 0.4 %; Eosinophils # (auto) 0.02 K/uL (0-0.50); Eosinophils % (auto) 0.2 %; Hematocrit (blood only) 36.9 % (42.0-52.0); Hemoglobin 13.3 g/dl (14.0-18.0); Immature Granulocytes # (auto) 0.04 K/uL (0.01-0.20); Immature Granulocytes % (auto) 0.4 %; Mean Corpuscular Hemoglobin 33.9 pg (25.0-34.0); Mean Corpuscular Volume 94.1 fL (80.0-100.0); Mean Platelet Volume 9.5 fL (9.4-12.4); Monocytes # (auto) 1.59 K/uL (0.11-0.59); Monocytes % (auto) 14.7 %; Neutrophils % (auto) 72.3 %; Platelet Count 227 K/uL (130-400); RDW Coefficient of Variation 13.4 % (11.5-14.5); RDW Standard Deviation 46.2 fL (36.4-46.3); Red Blood Count 3.92 M/uL (4.70-6.10); White Blood Count 10.79 K/ul (4.8-10.8)
--- NOTE | 2022-10-19 12:07 | Emergency Department Note ---
Impression & Plan Acute pancreatitis, Nausea & vomiting, Elevated lipase ED Provider Note NAME: JERSON FISHER AGE: 36 SEX: M : 1985 ARRIVES VIA: Walk-In INFORMANT: Patient, ED PROVIDER(S): Lul Bullock MD CHIEF COMPLAINT: Nausea vomiting MEDICAL DECISION MAKING: Patient presents due to concern for nausea vomiting for the last 2 weeks. IV was established blood work was obtained the patient was ordered IV fluids 2 L and IV Zofran. Review of the patient's blood work does show likely pancreatitis with an elevated lipase greater than 700. The patient's white count is normal with mild anemia hemoglobin of 13.3. Platelet count is unremarkable. The patient does have a transaminitis with a slightly elevated bilirubin at 1.5 and ALT of 225. Patient did receive her IM Bentyl for pain. Imaging deferred as the patient has a prior history of cholecystectomy. I did speak with the on-call hospitalist service Marce Chiu PA-C and the patient was admitted by Dr. Capellan. Prior /Outside records reviewed: Did review the patient's most recent discharge summary from October [address] Govea patient has a history of hypertension fatty liver chronic anemia was on buprenorphine history of tobacco and alcohol abuse. Differential diagnosis: Gastroenteritis, food borne illness, infections, appendicitis, diverticulitis, inflammatory bowel disease, obstruction, GI bleed, biliary pathology, volvulus, as well as other pathologies. Diagnostics, as interpreted by me: ECG: Normal sinus rhythm, rate of 84 normal intervals normal axis T wave version lead III noncontiguous leads. Cardiac monitoring: An order was placed for continuous cardiac monitoring. The monitor shows a rate of 87 with sinus rhythm. Patient was placed on pulse oximetry Medical decision rules: None Imaging studies: See below HPI: Patient presents due to concern for nausea vomiting. The patient states he has had intermittent symptoms over the last 2 weeks has not been able to keep anything down. Patient denies any chest pains or shortness of breath. Patient's children did have some similar symptoms but they seem to improve. The patient has had chronic symptoms. The patient does admit to using alcohol but not daily and has not used it in some time. The patient has not been able to tolerate any of his Zofran at home is been trialing Pedialyte but without improvement in symptoms. No cough or fever. The patient does use tobacco. No recent falls or trauma. Patient does complain of diffuse abdominal discomfort. PAST MEDICAL HISTORY: See Below PAST SURGICAL HISTORY: See Below SOCIAL HISTORY: See Below HOME MEDICATIONS: See Below ALLERGIES: See Below VITALS: See Below PHYSICAL EXAMINATION: GENERAL: NAD, wearing a mask, non-toxic. EYE EXAM: Normal conjunctiva. PERRL, no anisocoria and EOM's grossly intact w/o pain. NECK: Supple, no nuchal rigidity, no adenopathy, non-tender. No signs of meningismus. FROM of the neck with good chin to chest and neck extension. No stridor. LUNGS: Clear to auscultation. Normal chest wall mechanics. HEART: NSR, no MRG. ABDOMEN: Abdomen soft, non-tender, no masses, no rebound or guarding. BACK: No CVA TTP. SKIN: No rashes and no bruising. UPPER EXTREMITIES: Upper extremities are grossly normal. LOWER EXTREMITIES: Grossly normal, no edema. NEURO EXAM: A&O x3, cranial nerves II-XII grossly intact, normal speech, moves all 4 extremities. Past Med/Surg History Medical History Alcohol abuse GERD (gastroesophageal reflux disease) HTN (hypertension) Migraine Tobacco abuse Surgical History History of colonoscopy History of esophagogastroduodenoscopy (EGD) History of umbilical hernia repair 06/2020 Hx of appendectomy S/P cholecystectomy 06/2020 Family History Brother Hypertension Grandfather (Paternal) Parkinson disease Social History Smoking Status: Current every day smoker Tobacco Type: Cigarettes packs per day: 1.5; Cigarettes Per Day: 30; Second Hand Exposure: No; Do You Dip or Chew Tobacco: No; Tobacco Cessation Education Requested by Patient: No Hx Alcohol Use: Yes Alcohol type: beer and hard liquor Alcohol type Comment: vodka Alcohol Intake Frequency Comment: night; 2-3 drinks with 3-6 shots of vodka total Hx Substance Use: No Preferred Language: Armenian Communication Ability: Effective 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: No Beliefs That Will Affect Care: None marital status: Current Living Situation: Family Current Living Situation Comment: and kids current occupational status: employed Other Information That Helps Us Care for You: No Feels Safe at Home: Yes Safety Concerns: Feels Safe At This Time Assistive Devices: None Allergies Allergies Allergy/AdvReac Type Severity Reaction Status Date / Time shrimp Allergy Severe facial Verified 10/20/21 00:07 swelling erythromycin base Allergy Unknown seizure Verified 10/19/21 23:05 Home Meds Home Medications Medication Instructions Recorded Confirmed famotidine 40 mg tablet 40 mg PO HS 02/22/21 10/19/22 ondansetron 8 mg disintegrating 8 mg PO TID PRN Nausea 02/22/21 10/19/22 tablet pindolol 10 mg tablet 15 mg PO BID 02/22/21 10/19/22 chlorthalidone 25 mg tablet 12.5 mg PO QAM 10/19/21 10/19/22 cyclobenzaprine 5 mg tablet 5 mg PO TID PRN Muscle Spasm 10/19/21 10/19/22 montelukast 10 mg tablet 10 mg PO DAILY 10/19/21 10/19/22 pantoprazole 40 mg tablet,delayed 40 mg PO BID 10/19/21 10/19/22 release potassium chloride 10 mEq 20 meq PO BID 10/19/21 10/19/22 capsule,extended release cetirizine 10 mg tablet 10 mg PO DAILY 10/19/22 10/19/22 fluticasone propionate 50 2 spray intranasal DAILY PRN 10/19/22 10/19/22 mcg/actuation nasal Allergy Symptoms spray,suspension hydroxyzine HCl 25 mg tablet 25 mg PO TID PRN Other 10/19/22 10/19/22 magnesium oxide 400 mg PO DAILY 10/19/22 10/19/22 naltrexone 50 mg tablet 50 mg PO DAILY 10/19/22 10/19/22 sucralfate 1 gram tablet 1 g PO QID 10/19/22 10/19/22 Previous Rx's Medication Instructions Recorded epinephrine 0.3 mg/0.3 mL 0.3 mg (0.3 mL) IM .uda PRN 10/20/21 injection, auto-injector anaphylaxis #2 ea Results & Data (ED) Vital Signs Vital Signs - 24 hr 10/19/22 11:14 Temperature 36.8 C Temperature Source Temporal Artery Scan Pulse Rate 93 H Pulse Rhythm Regular Respiratory Rate 20 Respiratory Effort / Characteristics Non-Labored Spontaneous Respiratory Depth Normal Blood Pressure 165/103 H Blood Pressure Mean 123 Pulse Oximetry 97 Oxygen Delivery Method Room Air Sepsis Recent Fever Within 48 Hours No Sepsis New/Unexplained Change in Mental Status No Sepsis Action Taken by Nursing No Action Required Home Medications Current Medication List: was personally reviewed by me Laboratory Data Attestation: I reviewed the patient's lab results. 10/19/22 11:21 10/19/22 11:21 Lab Results 10/19/22 10/19/22 10/19/22 Range/Units 11:21 11:21 13:00 WBC 10.79 (4.8-10.8) K/ul RBC 3.92 L (4.70-6.10) M/uL Hgb 13.3 L (14.0-18.0) g/dl Hct 36.9 L (42.0-52.0) % MCV 94.1 (80.0-100.0) fL MCH 33.9 (25.0-34.0) pg MCHC 36.0 (32.0-36.0) g/dL RDW Std Deviation 46.2 (36.4-46.3) fL RDW Coeff of Jeremie 13.4 (11.5-14.5) % Plt Count 227 (130-400) K/uL MPV 9.5 (9.4-12.4) fL Immature Gran % (Auto) 0.4 % Neut % (Auto) 72.3 % Lymph % (Auto) 12.0 % [place] % (Auto) 14.7 % Eos % (Auto) 0.2 % Baso % (Auto) 0.4 % Neut # (Auto) 7.80 H (1.40-6.50) K/uL Lymph # (Auto) 1.30 (1.2-3.4) K/uL [place] # (Auto) 1.59 H (0.11-0.59) K/uL Eos # (Auto) 0.02 (0-0.50) K/uL Baso # (Auto) 0.04 (0-0.2) K/uL Immature Gran # (Auto) 0.04 (0.01-0.20) K/uL PT (9.0-12.0) Seconds INR (0.9-1.1) Sodium 142 (136-145) mmol/L Potassium TNP 3.3 L Chloride 100 (98-107) mmol/L Carbon Dioxide 29 (21-32) mmol/L Anion Gap 13 H (3-11) BUN 10 (6-23) mg/dl Creatinine 0.61 (0.6-1.4) mg/dl Est Cr Clr Drug Dosing 162.8 ml/min Est GFR ( Amer) 147.9 ml/min Est GFR (Non-Af Amer) 127.6 ml/min BUN/Creatinine Ratio 16.4 (10-20) Glucose 146 H (70-99(Fasting)) mg/dl Calcium 9.1 (8.6-10.3) mg/dl Magnesium 1.1 L (1.7-2.4) mg/dl Total Bilirubin 1.5 H (0.2-1.0) mg/dl AST TNP 231 H ALT 225 H (7-52) U/L Alkaline Phosphatase 207 H (34-104) U/L Total Protein 7.7 (6.0-8.3) gm/dl Albumin 4.7 (3.4-5.0) gm/dl Globulin 3.0 (2.5-4.0) gm/dl Albumin/Globulin Ratio 1.6 (0.9-2) Lipase 770 H (11-82) U/L 10/19/22 Range/Units 13:00 WBC (4.8-10.8) K/ul RBC (4.70-6.10) M/uL Hgb (14.0-18.0) g/dl Hct (42.0-52.0) % MCV (80.0-100.0) fL MCH (25.0-34.0) pg MCHC (32.0-36.0) g/dL RDW Std Deviation (36.4-46.3) fL RDW Coeff of Jeremie (11.5-14.5) % Plt Count (130-400) K/uL MPV (9.4-12.4) fL Immature Gran % (Auto) % Neut % (Auto) % Lymph % (Auto) % [place] % (Auto) % Eos % (Auto) % Baso % (Auto) % Neut # (Auto) (1.40-6.50) K/uL Lymph # (Auto) (1.2-3.4) K/uL [place] # (Auto) (0.11-0.59) K/uL Eos # (Auto) (0-0.50) K/uL Baso # (Auto) (0-0.2) K/uL Immature Gran # (Auto) (0.01-0.20) K/uL PT 14.0 H (9.0-12.0) Seconds INR 1.3 H (0.9-1.1) Sodium (136-145) mmol/L Potassium Chloride (98-107) mmol/L Carbon Dioxide (21-32) mmol/L Anion Gap (3-11) BUN (6-23) mg/dl Creatinine (0.6-1.4) mg/dl Est Cr Clr Drug Dosing ml/min Est GFR ( Amer) ml/min Est GFR (Non-Af Amer) ml/min BUN/Creatinine Ratio (10-20) Glucose (70-99(Fasting)) mg/dl Calcium (8.6-10.3) mg/dl Magnesium (1.7-2.4) mg/dl Total Bilirubin (0.2-1.0) mg/dl AST ALT (7-52) U/L Alkaline Phosphatase (34-104) U/L Total Protein (6.0-8.3) gm/dl Albumin (3.4-5.0) gm/dl Globulin (2.5-4.0) gm/dl Albumin/Globulin Ratio (0.9-2) Lipase (11-82) U/L Administered Medications Potassium Chloride/Sodium Chloride (Normal Saline W/20 Meq Kcl) 20 meq in 1,000 mls @ 150 mls/hr IV .[id number] YANA Stop: 11/18/22 13:44 Last Admin: 10/19/22 14:13 Dose: 150 mls/hr Documented By: SURESH Pantoprazole Sodium 40 mg/ (Syringe) 10 mls @ 5 mls/min IV BID YANA Stop: 11/18/22 13:59 Last Admin: 10/19/22 14:37 Dose: 5 mls/min Documented By: SURESH Magnesium Sulfate/Dextrose (Magnesium Sulfate / D5w) 1 gm in 100 mls @ 50 mls/hr IV Q2H YANA Stop: 10/19/22 23:14 Last Admin: 10/19/22 15:31 Dose: 50 mls/hr Documented By: [id number] Discontinued Medications Dicyclomine HCl (Dicyclomine Hcl 10 Mg/Ml 2 Ml Amp/Vial) 20 mg IM NOW ONE Stop: 10/19/22 13:10 Last Admin: 10/19/22 13:12 Dose: 20 mg Documented By: JOSE L Sodium Chloride (Nss 1000ml) 2,000 mls @ 999 mls/hr IV .Q2H1M ONE Stop: 10/19/22 14:33 Last Infusion: 10/19/22 15:49 Dose: 0 mls/hr Documented By: [id number] Admin: 10/19/22 13:01 Dose: 999 mls/hr Documented By: JOSE L Promethazine HCl 12.5 mg/ (Sodium Chloride) 50.5 mls @ 202 mls/hr IV NOW STA Stop: 10/19/22 13:57 Last Infusion: 10/19/22 15:49 Dose: 0 mls/hr Documented By: [id number] Admin: 10/19/22 14:39 Dose: 202 mls/hr Documented By: SURESH Famotidine 20 mg/ Syringe 5 mls @ 2.5 mls/min IV NOW ONE Stop: 10/19/22 13:51 Last Admin: 10/19/22 14:38 Dose: 2.5 mls/min Documented By: SURESH Ondansetron HCl (Ondansetron Inj 2 Mg/Ml 2 Ml Vial) 4 mg IV NOW STA Stop: 10/19/22 12:33 Last Admin: 10/19/22 13:02 Dose: 4 mg Documented By: JOSE L Discharge Plan Visit Data Chief Complaint: Vomiting Stated Complaint: VOMITING FOR 2 WEEKS, ABDOMINAL PAIN ED Provider: Lul Bullock Discharge Problem: Acute pancreatitis, Nausea & vomiting, Elevated lipase Patient Disposition: Admitted As Inpatient Discharge Instructions Interventions: ED Discharge Assessment Last Done: 10/19/22 16:29
[2022-10-19 12:08] LABS: Alanine Aminotransferase 225 U/L (7-52); Albumin Globulin Ratio 1.6 (0.9-2); Albumin Level 4.7 gm/dl (3.4-5.0); Alkaline Phosphatase 207 U/L (34-104); Anion Gap 13 (3-11); BUN Creatinine Ratio 16.4 (10-20); Bilirubin,Total 1.5 mg/dl (0.2-1.0); Blood Urea Nitrogen 10 mg/dl (6-23); Calcium 9.1 mg/dl (8.6-10.3); Carbon Dioxide 29 mmol/L (21-32); Chloride 100 mmol/L (98-107); Creatinine Clr Calc Pharmacy 162.8 ml/min; Est GFR (African American) 147.9 ml/min; Est GFR (Non-African American) 127.6 ml/min; Glucose 146 mg/dl (70-99(Fasting)); Sodium 142 mmol/L (136-145); Total Protein 7.7 gm/dl (6.0-8.3)
[2022-10-19 12:26] LABS: Lipase 770 U/L (11-82)
[2022-10-19] MEDS ORDERED: ONDANSETRON INJ 2 MG/ML 2 ML VIAL IV STA (12:32)
[2022-10-19] MEDS ORDERED: SODIUM CHLORIDE 0.9% 1000ML 2,000 ML IV ONE (12:33)
[2022-10-19] MEDS ORDERED: DICYCLOMINE HCL 10 MG/ML 2 ML AMP/VIAL IM ONE (13:09)
[2022-10-19 13:38] LABS: Potassium 3.3 mmol/L (3.5-5.1)
--- NOTE | 2022-10-19 13:41 | History & Physical Report ---
Date of Service October 19, 2022 Assessment & Plan (1) Pancreatitis: Plan: 36 y/o male with a prior hx of EtOH induced pancreatitis, EtOH hepatitis, HTN, and GERD presented to the ED today with >1 week of intractable nausea and vomiting with an inability to maintain his oral intake. Work-up in the ED today reveals elevated lipase, transaminitis - thought to have acute pancreatitis. Up until a week ago, pt was consuming 2-3 glasses of vodka per day although he r eports that he is not currently consuming EtOH due to the vomiting. He has also noticed increased tremulousness, sweats, and palpitations for the last week. Suspect there is also a component of alcohol withdrawal to his symptoms - noted to be tachycardic and hypertensive in the ED. He has a history GERD, which may also be contributing. - Admit to PCU for close observation - NPO, aggressive IVF hydration - Electrolyte repletion as needed - ordered potassium and mag based on ED labs - Consult GI for additional recommendations - spoke with BRISSA Graham about potential imaging, agrees with CT - Daily labs - CBC, BMP, Mg, LFTs, lipase - Anti-emetics - Continue PPI and H2 angelika for reflux - Gabapentin protocol for presumed alcohol withdrawal - Check CT abd/pel with IV contrast for further evaluation - r/o mass, necrosis, additional pathology contributing to symptoms (2) Intractable nausea and vomiting: Plan: Due to #1 (3) HTN (hypertension): (4) Transaminitis: (5) Alcohol abuse: (6) Tobacco abuse: (7) GERD (gastroesophageal reflux disease): Plan Pt seen and reviewed with collaborating physician, Dr. Capellan. Plan of care discussed and as outlined above. Code Status: Full code DVT Prophylaxis: Lovenonatalie Chiu PA-C History of Present Illness Chief Complaint: Nausea and vomiting Primary Care Provider: Dheeraj Tee MD This is a 36 y/o male with a hx of pancreatitis, EtOH abuse, EtOH hepatitis, GERD, HTN, tobacco abuse, and migraine who presented to the ED today with intractable nausea, vomiting x 1-2 weeks with an inability to maintain his oral intake at home. He reports that he started almost two week ago with vomiting and diarrhea after his kids developed a stomach bug with similar symptoms. All of them were sick for several days but pt has continued with symptoms even when the rest of his family has improved. He reports vomiting as often as every hour while awake - episodes of emesis are preceded by nausea, transient relief of nausea afterwards before cycle restarts. Vomiting of whatever he tries to take by mouth but denies hematemesis. Generalized abdominal pain and soreness - reports muscles are all sore from vomiting so frequently. Denies fevers but has had frequent chills, sweats, and shaking. Denies VALE, dizziness. Has noted dark urine, decreased urine frequency/amount but denies dysuria or hematuria. He reports chest burning and palpitations but attributes this to known hx of acid reflux. He drinks 2-3 glasses of vodka daily at baseline but reports last drink was at least a week ago due to his current symptoms. He smokes 1/2-3/4 pack per day but also has not been smoking due to symptoms./ He feels very weak and fatigued, has some upper back pain. He has tried Zofran ODT at home but doesn't feel like it helps, doesn't like the taste so has used sparingly. Initial diarrhea has resolved. Last BM was 3-4 days ago, which he attributes to not eat ing. Allergies Allergy/AdvReac Type Severity Reaction Status Date / Time shrimp Allergy Severe facial Verified 10/20/21 00:07 swelling erythromycin base Allergy Unknown seizure Verified 10/19/21 23:05 Home Medications Medication Instructions Recorded Confirmed Type famotidine 40 mg tablet 40 mg PO HS 02/22/21 10/19/22 History ondansetron 8 mg disintegrating 8 mg PO TID PRN Nausea 02/22/21 10/19/22 History tablet pindolol 10 mg tablet 15 mg PO BID 02/22/21 10/19/22 History chlorthalidone 25 mg tablet 12.5 mg PO QAM 10/19/21 10/19/22 History cyclobenzaprine 5 mg tablet 5 mg PO TID PRN Muscle Spasm 10/19/21 10/19/22 History montelukast 10 mg tablet 10 mg PO DAILY 10/19/21 10/19/22 History pantoprazole 40 mg tablet,delayed 40 mg PO BID 10/19/21 10/19/22 History release potassium chloride 10 mEq 20 meq PO BID 10/19/21 10/19/22 History capsule,extended release epinephrine 0.3 mg/0.3 mL 0.3 mg (0.3 mL) IM .uda PRN 10/20/21 10/19/22 Rx injection, auto-injector anaphylaxis #2 ea cetirizine 10 mg tablet 10 mg PO DAILY 10/19/22 10/19/22 History fluticasone propionate 50 2 spray intranasal DAILY PRN 10/19/22 10/19/22 History mcg/actuation nasal Allergy Symptoms spray,suspension hydroxyzine HCl 25 mg tablet 25 mg PO TID PRN Other 10/19/22 10/19/22 History magnesium oxide 400 mg PO DAILY 10/19/22 10/19/22 History naltrexone 50 mg tablet 50 mg PO DAILY 10/19/22 10/19/22 History sucralfate 1 gram tablet 1 g PO QID 10/19/22 10/19/22 History Past Med/Surg History Medical History Alcohol abuse GERD (gastroesophageal reflux disease) HTN (hypertension) Migraine Tobacco abuse Surgical History History of colonoscopy History of esophagogastroduodenoscopy (EGD) History of umbilical hernia repair 06/2020 Hx of appendectomy S/P cholecystectomy 06/2020 Family History Brother Hypertension Grandfather (Paternal) Parkinson disease Social History Smoking Status: Current every day smoker Tobacco Type: Cigarettes packs per day: 1.5; Cigarettes Per Day: 30; Second Hand Exposure: No; Do You Dip or Chew Tobacco: No; Tobacco Cessation Education Requested by Patient: No Hx Alcohol Use: Yes Alcohol type: beer and hard liquor Alcohol type Comment: vodka Alcohol Intake Frequency Comment: night; 2-3 drinks with 3-6 shots of vodka total Hx Substance Use: No Preferred Language: Ethiopian Communication Ability: Effective Beam Doffer Required: No Beliefs That Will Affect Care: None marital status: Current Living Situation: Family Current Living Situation Comment: and kids current occupational status: employed Other Information That Helps Us Care for You: No Feels Safe at Home: Yes Safety Concerns: Feels Safe At This Time Assistive Devices: None Review of Systems Review of Systems: All systems reviewed & are unremarkable except as noted in HPI & below Constitutional: + chills, + sweats, + fatigue, + anorexia and + weight loss Eyes: no diplopia and no worsening vision Ear, Nose, Mouth, Throat: no nasal congestion, no sore throat and no dysphagia Respiratory: + cough Cardiovascular: + chest pain (burning that pt reports is similar to prior reflux) and + palpitations; no lightheadedness and no syncope Gastrointestinal: as per Subjective / HPI Genitourinary: no dysuria or no hematuria Musculoskeletal: + back pain and + myalgia Integumentary: no yellowing of the skin Neurologic: + generalized weakness and + tremor(s); no dizziness and no headache(s) Physical Exam 2 Constitutional: + thin and + disheveled; + uncomfortable Eyes: + anicteric sclerae ENMT: dry oral mucosa Neck: trachea midline Respiratory: no respiratory distress and no labored breathing Auscultation: lungs clear to auscultation bilaterally; no rales, no rhonchi and no wheezes Cardiovascular: Rate/Rhythm: regular rhythm and + tachycardic Vessels: radial pulses present Extremities: no pedal edema Gastrointestinal (Abdomen): Inspection/Auscultation: normal bowel sounds; abdomen not distended Percussion/Palpation: + abdomen tender (diffuse) and + guarding (voluntary) Musculoskeletal: Head/Neck/Chest: normocephalic, head atraumatic and neck supple Skin: no jaundice Neurologic: moves all extremities; no focal motor deficits and not confused Motor/Sensory: + tremor (generalized tremulousness ) Psychiatric: Orientation: alert and oriented x 3 Affect: + anxious affect Results & Data Results & Data Vital Signs (Past 12 Hours) Vital Signs Temp Pulse Resp BP Pulse Ox O2 Del Method 10/19/22 11:14 36.8 C 93 H 20 165/103 H 97 Room Air Laboratory Results Laboratory Results - last 24 hr 10/19/22 10/19/22 10/19/22 11:21 11:21 13:00 WBC 10.79 RBC 3.92 L Hgb 13.3 L Hct 36.9 L MCV 94.1 MCH 33.9 MCHC 36.0 RDW Std Deviation 46.2 RDW Coeff of Jeremie 13.4 Plt Count 227 MPV 9.5 Immature Gran % (Auto) 0.4 Neut % (Auto) 72.3 Lymph % (Auto) 12.0 Slope % (Auto) 14.7 Eos % (Auto) 0.2 Baso % (Auto) 0.4 Neut # (Auto) 7.80 H Lymph # (Auto) 1.30 Slope # (Auto) 1.59 H Eos # (Auto) 0.02 Baso # (Auto) 0.04 Immature Gran # (Auto) 0.04 PT INR Sodium 142 Potassium TNP 3.3 L Chloride 100 Carbon Dioxide 29 Anion Gap 13 H BUN 10 Creatinine 0.61 Est Cr Clr Drug Dosing 162.8 Est GFR ( Amer) 147.9 Est GFR (Non-Af Amer) 127.6 BUN/Creatinine Ratio 16.4 Glucose 146 H Calcium 9.1 Total Bilirubin 1.5 H AST TNP 231 H ALT 225 H Alkaline Phosphatase 207 H Total Protein 7.7 Albumin 4.7 Globulin 3.0 Albumin/Globulin Ratio 1.6 Lipase 770 H SARS-CoV-2, RNA, NAAT 10/19/22 10/19/22 13:00 13:42 WBC RBC Hgb Hct MCV MCH MCHC RDW Std Deviation RDW Coeff of Jeremie Plt Count MPV Immature Gran % (Auto) Neut % (Auto) Lymph % (Auto) Slope % (Auto) Eos % (Auto) Baso % (Auto) Neut # (Auto) Lymph # (Auto) Slope # (Auto) Eos # (Auto) Baso # (Auto) Immature Gran # (Auto) PT 14.0 H INR 1.3 H Sodium Potassium Chloride Carbon Dioxide Anion Gap BUN Creatinine Est Cr Clr Drug Dosing Est GFR ( Amer) Est GFR (Non-Af Amer) BUN/Creatinine Ratio Glucose Calcium Total Bilirubin AST ALT Alkaline Phosphatase Total Protein Albumin Globulin Albumin/Globulin Ratio Lipase SARS-CoV-2, RNA, NAAT Pending Code Status & VTE Plan VTE Prophylaxis Plan VTE Prophylaxis will be ordered: Yes Supervising Physician Co-Signing Physician Notes I have seen and examined the patient and have discussed the case with the provider above. I agree with the assessment and plan as stated with the following exceptions. 36 yo alcoholic smoker with a history of alcoholic pancreatitis in the past presents wtih two weeks of worsening alcoholic pancreatitis. The most concerning feature of this evaluation is the lack of insight into the depth of alcohol addiction that is present both by the patient and his significant other who is at bedside. The patient reports to drink 6-7 8oz glasses of vodka per day. The idea that it isn't an issue seems to come from the lack of withdrawal symptoms in the past when we was working, currently laid off. We discussed that this is a very big problem and that it can kill him if alcohol cessation is not completely achieved. He reports persistent vomiting and pain, and poor PO intake over the past few days. On exam he is lethargic but comfortable after having received Ativan 1mg IV and Toradol IV for pain. Given he is noncompliant with naltrexone and doesn't plan on using it, narcotics were ordered PRN for pain control, also. His abdomen is slightly distended in the epigastric region and is tender to palpation. Cardiac and pulmonary exams were unremarkable. Labwork reviewed including CBC within normal limits, INR 1.3 with total bilirubin of 1.5, AST 231 and ALT 225. Lipase 770. Electrolyte abnormalities including hypokalemia and severe hypomagnesemia are consistent with clinica picture described along with poor nutritional status. MELD is 11 consistent with a 6% 3 month mortality. Maddreys DF is 10.5. [place] score 0. CT a/p reveals possible pancreatic necrosis. 1. Acute alcoholic pancreatitis with possible infected necrosis 2. Alcohol abuse and withdrawal 3. Hypomagnesemia/Hypokalemia 4. Smoking Acute withdrawal symptoms tempered wtih Ativan today. Cont AWSS with thiamine folate replacement and ensure patient has an opportunity to explore rehab options. Cont supportive care with IVF and will empirically add abx given possible pancreatic necrosis on CT after prolonged period of dehydration at home. Correct electrolyes overnight and nicoderm patch now. I explained to both he and his significant other how sick he is now and how important it is that he get a handle on this addiction and quit alcohol completely. They initially didn't agree with me but at least verbalized understanding of what I was saying. Cont supportive care measures. Timi, DO
[2022-10-19] MEDS ORDERED: PROMETHAZINE HCL 12.5 MG in SODIUM CHLORIDE 0.9% 50 ML IV STA (13:43)
[2022-10-19 13:49] LABS: INR 1.3 (0.9-1.1)
[2022-10-19] MEDS ORDERED: FAMOTIDINE 20 MG in SYRINGE 3 ML IV ONE (13:50)
[2022-10-19] MEDS: NSS + 20MEQ KCL 20 MEQ/1,000 ML BAG IV SCH ×2 (14:13→22:19)
[2022-10-19] MEDS: PANTOprazole 40 MG in SYRINGE 0 ML IV SCH ×2 (14:37→23:33)
[2022-10-19 14:44] LABS: Magnesium 1.1 mg/dl (1.7-2.4)
[2022-10-19] MEDS: MAGNESIUM SULFATE / D5W 1 GM/100 ML BAG IV SCH ×4 (15:31→21:32)
[2022-10-19] MEDS ORDERED: LORazepam 2 MG/1 ML VIAL IV PRN (16:35)
[2022-10-19] MEDS ORDERED: GABAPENTIN 1200MG ALCOHOL WITHDRAWAL LOAD PO STA (16:35)
[2022-10-19] MEDS ORDERED: ONDANSETRON INJ 2 MG/ML 2 ML VIAL IV PRN (16:35)
[2022-10-19] MEDS ORDERED: GABAPENTIN 600 MG TAB PO ONE (16:35)
[2022-10-19] MEDS ORDERED: OPTIRAY 350 100ml IV ONE (17:21)
[2022-10-19] MEDS: THIAMINE HCL 100 MG in SYRINGE 9 ML IV SCH (17:28)
[2022-10-19] MEDS: FOLIC ACID 1 MG in SYRINGE 9.8 ML IV SCH (17:28)
[2022-10-19] MEDS: KETOROLAC TROMETHAMINE 15 MG/ML VIAL IV PRN (17:41)
[2022-10-19] MEDS: NICOTINE 21 MG/24 HR TDSY TD SCH (19:44)
[2022-10-19] MEDS: GABAPENTIN 600 MG TAB PO SCH (20:19)
--- NOTE | 2022-10-19 20:42 | CT Scan Report ---
CT abd pelvis IV con only CLINICAL HISTORY: Intractable N/V, pancreatitis TECHNIQUE: Helical axial images of the abdomen and pelvis were obtained and displayed. Automated dose lowering techniques and/or adjustment according to patient size were utilized for this exam. This e xam was performed with intravenous contrast. CT DOSE: 324.88 mGy.cm COMPARISON: Comparison is made to CT abdomen pelvis November 22, 2020 FINDINGS: Lower chest: No acute abnormality. Liver: Hepatic steatosis is noted. Gallbladder and biliary tree: Patient is status post cholecystectomy. No intra- or extrahepatic bilia ry ductal dilation. Pancreas: There are peripancreatic stranding is seen most prominent in the pancreatic head with appar ent nonenhancing focus measuring 15 mm in diameter.. Spleen: Unremarkable. Adrenals: Unremarkable. Kidneys and ureters: Unremarkable. Bladder: Bladder is under distended with wall thickening seen. Reproductive organs: Unremarkable. Bowel: There is prominent colonic wall thickening and pericolonic stranding about the hepatic flexure . The small bowel is unremarkable. There is gastric and duodenal wall thickening in the region of the pancreas. Lymph nodes Retroperitoneal: Unremarkable. Pelvic: Unremarkable. Mesenteric: Unremarkable. Peritoneum: Prominent fat stranding is seen about the pancreatic head and hepatic flexure. Vessels: Unremarkable. Abdominal wall: Unremarkable. Bones: Unremarkable. IMPRESSION: 1. There is prominent edema and fat stranding about the pancreatic head compatible with acute pancre atitis. There is a nonenhancing focus in the pancreatic head which may possibly represent pancreatic necrosis. 2. Thickening of the hepatic flexure and gastric and duodenal dawn, compatible with reactive inflam matory changes. 3. Hepatic steatosis. ACT 112: Negative or not required by law. Electronically signed by: Kamaljit Beckham M.D. 10/19/2022 8:40 PM
[2022-10-19] MEDS ORDERED: HYDROmorphone INJ 0.5 MG/0.5 ML SYR IV PRN (21:11)
[2022-10-19] MEDS ORDERED: POTASSIUM CHLORIDE PWD 20 MEQ PACK PO STA (21:17)
[2022-10-19] MEDS ORDERED: PIPERACILLIN/TAZOBACTAM 3.375 GM (over 30 mins) IV ONE (21:30)
[2022-10-19] MEDS: LACTATED RINGER'S 1,000 ML IV SCH (21:32)
[2022-10-20 00:02] LABS: Appearance Urine Clear (Clear); Bilirubin Urine Negative (Negative); Blood Urine Negative (Negative); Color Urine Orange; Glucose Urine UA Negative (Negative); Ketones Urine Negative (Negative); Leukocyte Esterase Urine Negative (Negative); Nitrite Urine Negative (Negative); Protein Urine 1+ (Negative); Specific Gravity Urine 1.015 (1.000-1.030); Urobilinogen Urine Positive (Negative); pH Urine 8.5 (4.5-7.5)
[2022-10-20 00:39] LABS: Bacteria Urine Negative (Negative); Epithelial Cell Urine 0-5 /lpf (0-5); RBC Urine 0-4 /hpf (0-4); WBC Urine 0-5 /hpf (0-5)
[2022-10-20] MEDS: LACTATED RINGER'S 1,000 ML IV SCH ×4 (02:49→17:29)
[2022-10-20] MEDS: GABAPENTIN 600 MG TAB PO SCH ×3 (02:50→17:31)
[2022-10-20] MEDS: PIPERACILLIN/TAZOBACTAM 3.375 GM in DEXTROSE 5% 100 ML IV SCH ×3 (03:21→20:09)
[2022-10-20] MEDS: PROMETHAZINE HCL 6.25 MG in SODIUM CHLORIDE 0.9% 50 ML IV PRN ×2 (03:22→14:44)
[2022-10-20 06:48] LABS: Basophils # (auto) 0.01 K/uL (0-0.2); Basophils % (auto) 0.2 %; Eosinophils # (auto) 0.06 K/uL (0-0.50); Hematocrit (blood only) 32.3 % (42.0-52.0); Hemoglobin 11.4 g/dl (14.0-18.0); Immature Granulocytes # (auto) 0.03 K/uL (0.01-0.20); Immature Granulocytes % (auto) 0.5 %; Lymphocytes # (auto) 1.25 K/uL (1.2-3.4); Lymphocytes % (auto) 21.2 %; Mean Corpuscular Hemoglobin 33.9 pg (25.0-34.0); Mean Corpuscular Hgb Conc 35.3 g/dL (32.0-36.0); Mean Corpuscular Volume 96.1 fL (80.0-100.0); Mean Platelet Volume 9.4 fL (9.4-12.4); Monocytes # (auto) 0.92 K/uL (0.11-0.59); Monocytes % (auto) 15.6 %; Neutrophils # (auto) 3.62 K/uL (1.40-6.50); Neutrophils % (auto) 61.5 %; Platelet Count 145 K/uL (130-400); RDW Standard Deviation 45.7 fL (36.4-46.3); Red Blood Count 3.36 M/uL (4.70-6.10); White Blood Count 5.89 K/ul (4.8-10.8)
[2022-10-20 07:03] LABS: Alanine Aminotransferase 143 U/L (7-52); Albumin Level 3.8 gm/dl (3.4-5.0); Alkaline Phosphatase 159 U/L (34-104); Anion Gap 7 (3-11); Aspartate Aminotransferase 149 U/L (13-39); Bilirubin Direct 0.6 mg/dl (0-0.2); Bilirubin,Total 1.8 mg/dl (0.2-1.0); Blood Urea Nitrogen 6 mg/dl (6-23); Calcium 8.1 mg/dl (8.6-10.3); Carbon Dioxide 29 mmol/L (21-32); Chloride 102 mmol/L (98-107); Est GFR (African American) > 150.0 ml/min; Est GFR (Non-African American) 138.4 ml/min; Glucose 93 mg/dl (70-99(Fasting)); Magnesium 1.8 mg/dl (1.7-2.4); Potassium 3.2 mmol/L (3.5-5.1); Sodium 138 mmol/L (136-145)
[2022-10-20 07:22] LABS: Lipase 929 U/L (11-82)
[2022-10-20] MEDS: KETOROLAC TROMETHAMINE 15 MG/ML VIAL IV PRN ×2 (09:59→22:35)
[2022-10-20] MEDS: POTASSIUM CHLORIDE / WTR 10 MEQ/100 ML PLCT IV SCH ×2 (09:59→11:06)
[2022-10-20] MEDS: PANTOprazole 40 MG in SYRINGE 0 ML IV SCH ×2 (10:00→20:09)
[2022-10-20] MEDS: ENOXAPARIN INJ 40 MG/0.4 ML SYR SQ SCH (10:00)
[2022-10-20] MEDS: FOLIC ACID 1 MG in SYRINGE 9.8 ML IV SCH (10:00)
[2022-10-20] MEDS: THIAMINE HCL 100 MG in SYRINGE 9 ML IV SCH (10:01)
[2022-10-20] MEDS: NICOTINE 21 MG/24 HR TDSY TD SCH (10:01)
--- NOTE | 2022-10-20 10:29 | Gastrointestinal Consultation ---
Date of Consultation October 20, 2022 Assessment & Plan (1) Acute pancreatitis: Likely secondary to alcohol. Smoking also likely contributes. Will also check triglycerides. He is improving. (2) Alcoholic hepatitis: Mild, DF = 11, no steroids or Trental indicated. Plan 1. Discussed smoking cessation - pt states he will try to stop. Enc to address w PCP for aids such as the patch. 2. ETOH cessation. Explained that the he is likely to continue to have episodes of pancreatitis if he does not stop smoking/drinking alcohol and that pancreatitis can cause permanent damage to the pancreas, lead to DM, chronic pancreatitis. 3. Continue LF at 200/hr for another day. 4. Judicious use of narcotics. 5. Will start a clear liquid diet. 6. OP EUS in approx 6 wks. Our office will contact him to arrange. I have placed the telephone encounter w the order in [employer]. Supervising Physician Co-Signing Physician Notes Consult for pancreatitis, presumed to be ethanol. Prior cholecystectmy Endorses last drink was two weeks ago, but with rise in lft's and also lipase concerning for alcoholic hepatitis. endorses drinking vodka nightly about a shot to help wtih work stresses. PE as documented, notably alert and oriented to person, place, time, tired appearing, benign abdomen Agree with further plan of care as above. No current signs of biliary source for pancreatitis so presumed to be from ethanol with mild alcohlic hepatitis noted per calculation of df without the need for steroids. Continue with IV fluid for hydration, tolerating sips of clear liquids he tells me though still with abdominal pain and nausea. Agree with further plan of care as documented, prn nausea medications. History of Present Illness Reason for Consultation: Pancreatitis Requesting Physician: Lo Chiu PA-C Attending Physician: Alexandru Garcia MD History of Present Illness Mr. Geraldo Jerry is a 36 yr old male pt of Nini Pandey PA-C and Dr. Mindy moran a hx of migraines, fatty liver, prior pancreatitis in 2014, post cholecystectomy at that time who presented to the ED yesterday for N/V upper abdomen pain of 2 week duration. These symptoms all began on the same day, and he hasn't been able to tolerate eating/drinking since then. When the symptoms began, he stopped drinking alcohol - he reports drinking 2 or 3 shots of vodka each night after work. He also smokes cigarettes. He has not had any new medications. He denies any cannabinoid use. On arrival, CT w acute, uncomplicated pancreatitis of the pancreatic head. The bile ducts were normal post cholecystectomy. Lipase was elevated at 770, LFTs also elevated T Bili 1.5 on arrival ->1.8 this morning, AST 231->149, ALT 224- >143, Alk Phos 207->154. LR is running at 200cc/hr and Hb was 13 on arrival -> 11 today. Cr has been normal. The pt tells me that his pain is about 50% improved compared to yesterday. Most recent EGD for vomiting was in October 2021: normal. DF = 11 Allergies Allergy/AdvReac Type Severity Reaction Status Date / Time shrimp Allergy Severe facial Verified 10/20/21 00:07 swelling erythromycin base Allergy Unknown seizure Verified 10/19/21 23:05 Home Medications Medication Instructions Recorded Confirmed Type famotidine 40 mg tablet 40 mg PO HS 02/22/21 10/19/22 History ondansetron 8 mg disintegrating 8 mg PO TID PRN Nausea 02/22/21 10/19/22 History tablet pindolol 10 mg tablet 15 mg PO BID 02/22/21 10/19/22 History chlorthalidone 25 mg tablet 12.5 mg PO QAM 10/19/21 10/19/22 History cyclobenzaprine 5 mg tablet 5 mg PO TID PRN Muscle Spasm 10/19/21 10/19/22 History montelukast 10 mg tablet 10 mg PO DAILY 10/19/21 10/19/22 History pantoprazole 40 mg tablet,delayed 40 mg PO BID 10/19/21 10/19/22 History release potassium chloride 10 mEq 20 meq PO BID 10/19/21 10/19/22 History capsule,extended release epinephrine 0.3 mg/0.3 mL 0.3 mg (0.3 mL) IM .uda PRN 10/20/21 10/19/22 Rx injection, auto-injector anaphylaxis #2 ea cetirizine 10 mg tablet 10 mg PO DAILY 10/19/22 10/19/22 History fluticasone propionate 50 2 spray intranasal DAILY PRN 10/19/22 10/19/22 History mcg/actuation nasal Allergy Symptoms spray,suspension hydroxyzine HCl 25 mg tablet 25 mg PO TID PRN Other 10/19/22 10/19/22 History magnesium oxide 400 mg PO DAILY 10/19/22 10/19/22 History naltrexone 50 mg tablet 50 mg PO DAILY 10/19/22 10/19/22 History sucralfate 1 gram tablet 1 g PO QID 10/19/22 10/19/22 History Patient History Medical History Alcohol abuse GERD (gastroesophageal reflux disease) HTN (hypertension) Migraine Tobacco abuse Surgical History History of colonoscopy History of esophagogastroduodenoscopy (EGD) History of umbilical hernia repair 06/2020 Hx of appendectomy S/P cholecystectomy 06/2020 Family History Brother Hypertension Grandfather (Paternal) Parkinson disease Social History Smoking Status: Current every day smoker Tobacco Type: Cigarettes packs per day: 1.5; Cigarettes Per Day: 30; Second Hand Exposure: No; Do You Dip or Chew Tobacco: No; Tobacco Cessation Education Requested by Patient: No Hx Alcohol Use: Yes Alcohol type: beer and hard liquor Alcohol type Comment: vodka Alcohol Intake Frequency Comment: night; 2-3 drinks with 3-6 shots of vodka total Hx Substance Use: No Preferred Language: Chinese Communication Ability: Effective Floral Assistant Required: No Beliefs That Will Affect Care: None marital status: Current Living Situation: Family Current Living Situation Comment: and kids current occupational status: employed Other Information That Helps Us Care for You: No Feels Safe at Home: Yes Safety Concerns: Feels Safe At This Time Assistive Devices: None Review of Systems Review of Systems: ROS: Gen: Denies weakness, fevers, weight loss Eyes: No eye redness, or pain, no recent vision changes Resp: No SOB, no cough Cardio: No palpitations/irregular beats, no chest pain GI: As per HPI, otherwise (-). : Denies pain on urination Skin: No jaundice, itching or new rashes Physical Exam Constitutional: well developed, well nourished and cooperative Appears uncomfortable, flushed, sweaty, is appropriate weight. Eyes: PERRL, conjunctivae normal, anicteric sclerae ENMT: external ear and nose normal, oropharynx normal Neck: trachea midline, no thyromegaly Respiratory: normal respiratory effort, lungs clear to auscultation Cardiovascular: RRR, no murmur, no edema Gastrointestinal (Abdomen): soft, non distended, is moderately tender across the entire upper abdomen. Musculoskeletal: no cyanosis or clubbing, extremities motor strength 5/5 Skin: no rashes, warm and dry Neurologic: PERRL, EOMI, accommodation nl, no face palsy, no dysarthria Psychiatric: A+Ox3, euthymic affect Lymphatic: no cervical or axillary lymphadenopathy Results & Data Vital Signs (Past 12 Hours) Vital Signs Temp Pulse Pulse Resp BP Pulse Ox O2 Del Method 10/20/22 08:00 90 10/20/22 07:28 37.0 C 90 16 144/96 H 98 Room Air 10/20/22 03:47 36.8 C 87 20 151/97 H 99 Room Air 10/20/22 00:31 85 10/19/22 23:44 36.8 C 88 18 140/87 99 Room Air Laboratory Results See HPI for LFTs, Lipase WBC 5, hemoglobin 11, HCT 32, PLT S145, PT 14, INR 1.3, NA 138, K3.2, CL 102, CO2 29, BUN 6, CR 0.5, glucose 93 Diagnostic Findings CTAP w IV 10/19/22: 1. There is prominent edema and fat stranding about the pancreatic head compatible with acute pancreatitis. There is a nonenhancing focus in the pancreatic head which may possibly represent pancreatic necrosis. 2. Thickening of the hepatic flexure and gastric and duodenal dawn, compatible with reactive inflammatory changes. 3. Hepatic steatosis. (1) Acute pancreatitis Acute pancreatitis complication: unspecified Pancreatitis type: unspecified pancreatitis type Qualified Code(s): K85.90 - Acute pancreatitis without necrosis or infection, unspecified
--- NOTE | 2022-10-20 16:02 | Hospitalist Progress Note ---
Date of Service October 20, 2022 Assessment & Plan (1) Pancreatitis: Plan: 36 y/o male with a prior hx of EtOH induced pancreatitis, EtOH hepatitis, HTN, and GERD presented to the ED today with >1 week of intractable nausea and vomiting with an inability to maintain his oral intake. Work-up in the ED today reveals elevated lipase, transaminitis - thought to have acute pancreatitis. Up until a week ago, pt was consuming 2-3 glasses of vodka per day although he r eports that he is not currently consuming EtOH due to the vomiting. He has also noticed increased tremulousness, sweats, and palpitations for the last week. Suspect there is also a component of alcohol withdrawal to his symptoms - noted to be tachycardic and hypertensive in the ED. He has a history GERD, which may also be contributing. -Likely secondary to use of alcohol with a history of pancreatitis in the past as well - NPO, aggressive IVF hydration, controlled analgesics and also antiemetics - Continue PPI and H2 angelika for reflux -Appreciate GI input and recommendation -Clinically a little better but he still has abdominal pain with nausea -Liquids have been started and will advance as tolerated -We will monitor electrolytes and replace accordingly CT scan of the abdomen and pelvis IMPRESSION: 1. There is prominent edema and fat stranding about the pancreatic head compatible with acute pancreatitis. There is a nonenhancing focus in the pancreatic head which may possibly represent pancreatic necrosis. 2. Thickening of the hepatic flexure and gastric and duodenal dawn, compatible with reactive inflammatory changes. 3. Hepatic steatosis. (2) Intractable nausea and vomiting: Plan: Due to #1 (3) Alcohol abuse: Plan: History of alcohol abuse Minimal symptoms of withdrawal Gabapentin protocol for presumed alcohol withdrawal (4) HTN (hypertension): Plan: Blood pressure seems to be elevated Will monitor and give as needed medications to improve blood pressure as needed (5) Transaminitis: Plan: Secondary to alcoholic hepatitis No indication of steroids We will monitor LFTs (6) Tobacco abuse: (7) GERD (gastroesophageal reflux disease): Plan DVT prophylaxis Subcu Lovenox CODE STATUS Full Admission and Anticipated Discharge Date Admission Date: October 19, 2022 Subjective 10/20/2022 The patient was seen and examined in telemetry unit He has been complaining of abdominal pain with nausea but no vomiting He does have minimal tremors involving the outstretched hands No fever and or chills Review of Systems Review of Systems: All systems are reviewed and are unremarkable except as noted below Gastrointestinal: Abdominal pain with nausea but no vomiting Physical Exam Physical Exam: Lying in bed with minimal distress Constitutional: well developed, well nourished, + ill appearing and + obese Eyes: PERRL, conjunctivae normal, anicteric sclerae Neck: trachea midline, no thyromegaly Respiratory: no respiratory distress Auscultation: lungs clear to auscultation bilaterally Cardiovascular: Rate/Rhythm: regular rate and regular rhythm; not tachycardic Heart Sounds: normal S1 and normal S2; no murmur Extremities: no edema Gastrointestinal (Abdomen): Inspection/Auscultation: normal bowel sounds; abdomen not distended Percussion/Palpation: + abdomen tender (Mostly in the epigastrium) and abdomen soft Musculoskeletal: No acute arthritis involving any joints Neurologic: normal touch/pain/proprioception and moves all extremities; no focal motor deficits Minimal tremors involving the outstretched hands Psychiatric: A+Ox3, euthymic affect Lymphatic: no cervical or axillary lymphadenopathy Results & Data Results & Data Vital Signs (Past 12 Hours) Vital Signs Temp Pulse Pulse Resp BP Pulse Ox O2 Del Method 10/20/22 15:45 88 10/20/22 15:07 37.0 C 76 18 159/104 H 97 Room Air 10/20/22 11:51 36.7 C 90 18 140/94 97 Room Air 10/20/22 08:00 90 10/20/22 07:28 37.0 C 90 16 144/96 H 98 Room Air Laboratory Results Short CBC 10/20/22 Range/Units 06:22 WBC 5.89 (4.8-10.8) K/ul Hgb 11.4 L (14.0-18.0) g/dl Hct 32.3 L (42.0-52.0) % Plt Count 145 (130-400) K/uL BMP 10/20/22 06:22 Sodium 138 Potassium 3.2 L Chloride 102 Carbon Dioxide 29 BUN 6 Creatinine 0.50 L Glucose 93 Calcium 8.1 L Liver Function 10/20/22 Range/Units 06:22 Total Bilirubin 1.8 H (0.2-1.0) mg/dl Direct Bilirubin 0.6 H (0-0.2) mg/dl AST 149 H (13-39) U/L ALT 143 H (7-52) U/L Alkaline Phosphatase 159 H (34-104) U/L Albumin 3.8 (3.4-5.0) gm/dl Urine 10/19/22 Range/Units 23:45 Urine Color Miner Urine Appearance Clear (Clear) Urine pH 8.5 H (4.5-7.5) Ur Specific [place] 1.015 (1.000-1.030) Urine Protein 1+ H (Negative) Urine Glucose (UA) Negative (Negative) Medications Administered Current Inpatient Medications Enoxaparin Sodium (Enoxaparin Inj 40 Mg/0.4 Ml Syr) 40 mg SQ QAM [facility] Stop: 11/19/22 08:59 Last Admin: 10/20/22 10:00 Dose: 40 mg Gabapentin (Gabapentin 600 Mg Tab) 600 mg PO Q24H [facility] Stop: 10/23/22 02:31 Gabapentin (Gabapentin 600 Mg Tab) 600 mg PO Q12H [facility] Stop: 10/22/22 02:31 Gabapentin (Gabapentin 600 Mg Tab) 600 mg PO Q8H [facility] Stop: 10/21/22 02:31 Last Admin: 10/20/22 10:02 Dose: 600 mg Hydromorphone HCl (Hydromorphone Inj 0.5 Mg/0.5 Ml Syr) 0.5 mg IV Q4H PRN PRN Reason: severe pain (7-10) Stop: 11/02/22 21:10 Last Admin: 10/20/22 14:24 Dose: 0.5 mg Pantoprazole Sodium 40 mg/ (Syringe) 10 mls @ 5 mls/min IV BID [facility] Stop: 11/18/22 13:59 Last Admin: 10/20/22 10:00 Dose: 5 mls/min Thiamine HCl 100 mg/ Syringe 10 mls @ 2 mls/min IV QAM [facility] Stop: 11/18/22 16:34 Last Admin: 10/20/22 10:01 Dose: 2 mls/min Folic Acid 1 mg/ Syringe 10 mls @ 5 mls/min IV QAM [facility] Stop: 11/18/22 16:34 Last Admin: 10/20/22 10:00 Dose: 5 mls/min Lactated Ringer's (Lr) 1,000 mls @ 200 mls/hr IV .Q5H [facility] Stop: 10/20/22 21:14 Last Admin: 10/20/22 12:28 Dose: 200 mls/hr Piperacillin Sod/Tazobactam (Sod 3.375 gm/ Dextrose) 115 mls @ 28.75 mls/hr IV Q8H [facility]; Protocol Stop: 10/30/22 03:59 Last Admin: 10/20/22 12:10 Dose: 28.8 mls/hr Promethazine HCl 6.25 mg/ (Sodium Chloride) 50.25 mls @ 201 mls/hr IV Q6H PRN PRN Reason: Nausea And Vomiting Stop: 11/19/22 02:49 Last Infusion: 10/20/22 15:29 Dose: Infused Ketorolac Tromethamine (Ketorolac Tromethamine 15 Mg/Ml Vial) 15 mg IV Q6H PRN PRN Reason: Pain Stop: 10/24/22 17:08 Last Admin: 10/20/22 09:59 Dose: 15 mg Miscellaneous (Pindolol 10 Mg Tablet-Order Awaiting Action) 1 each N/A QS [facility] Stop: 11/18/22 16:59 Last Admin: 10/20/22 11:12 Dose: Not Given Miscellaneous (Remove Nicoderm Patch) 1 each N/A DAILY@0859 [facility] Stop: 11/19/22 08:58 Last Admin: 10/20/22 10:08 Dose: 1 each Nicotine (Nicotine 21 Mg/24 Hr Tdsy) 21 mg TD QAM [facility] Stop: 11/18/22 19:14 Last Admin: 10/20/22 10:01 Dose: 21 mg
[2022-10-20] MEDS ORDERED: LORazepam 2 MG/1 ML VIAL IV PRN ×3 (18:17→22:21)
[2022-10-20] MEDS ORDERED: ACETAMINOPHEN 325 MG TAB PO PRN (22:13)
[2022-10-20] MEDS ORDERED: Ativan IV Alcohol Withdrawal--Active Protocol IV PRN (22:21)
[2022-10-21] MEDS ORDERED: MAGNESIUM SULFATE / D5W 1 GM/100 ML BAG IV ONE (00:45)
[2022-10-21] MEDS: LACTATED RINGER'S 1,000 ML IV SCH ×5 (00:55→21:40)
[2022-10-21] MEDS: POTASSIUM CHLORIDE / WTR 10 MEQ/100 ML PLCT IV SCH ×4 (00:55→04:00)
[2022-10-21] MEDS: GABAPENTIN 600 MG TAB PO SCH ×2 (02:03→15:16)
[2022-10-21] MEDS: oxyCODONE HCL IR 5 MG TAB (IMMEDIATE RELEASE) PO PRN ×2 (02:19→20:15)
[2022-10-21] MEDS: PIPERACILLIN/TAZOBACTAM 3.375 GM in DEXTROSE 5% 100 ML IV SCH ×3 (04:01→20:18)
[2022-10-21] MEDS: KETOROLAC TROMETHAMINE 15 MG/ML VIAL IV PRN (05:00)
[2022-10-21] MEDS: LORazepam 2 MG/1 ML VIAL IV PRN ×5 (05:40→20:16)
[2022-10-21 06:32] LABS: Basophils # (auto) 0.01 K/uL (0-0.2); Basophils % (auto) 0.2 %; Eosinophils # (auto) 0.08 K/uL (0-0.50); Eosinophils % (auto) 1.6 %; Hematocrit (blood only) 34.6 % (42.0-52.0); Hemoglobin 12.4 g/dl (14.0-18.0); Immature Granulocytes # (auto) 0.02 K/uL (0.01-0.20); Immature Granulocytes % (auto) 0.4 %; Lymphocytes # (auto) 1.45 K/uL (1.2-3.4); Lymphocytes % (auto) 28.2 %; Mean Corpuscular Hemoglobin 33.9 pg (25.0-34.0); Mean Corpuscular Hgb Conc 35.8 g/dL (32.0-36.0); Mean Corpuscular Volume 94.5 fL (80.0-100.0); Monocytes # (auto) 0.89 K/uL (0.11-0.59); Monocytes % (auto) 17.3 %; Neutrophils % (auto) 52.3 %; Platelet Count 132 K/uL (130-400); RDW Coefficient of Variation 12.6 % (11.5-14.5); RDW Standard Deviation 43.7 fL (36.4-46.3); Red Blood Count 3.66 M/uL (4.70-6.10); White Blood Count 5.15 K/ul (4.8-10.8)
[2022-10-21 06:48] LABS: Anion Gap 6 (3-11); BUN Creatinine Ratio 7.7 (10-20); Blood Urea Nitrogen 4 mg/dl (6-23); Calcium 8.5 mg/dl (8.6-10.3); Carbon Dioxide 29 mmol/L (21-32); Chloride 102 mmol/L (98-107); Creatinine Clr Calc Pharmacy 197.5 ml/min; Est GFR (African American) > 150.0 ml/min; Est GFR (Non-African American) 136.2 ml/min; Glucose 81 mg/dl (70-99(Fasting)); Potassium 3.4 mmol/L (3.5-5.1); Sodium 137 mmol/L (136-145)
[2022-10-21 06:52] LABS: Alanine Aminotransferase 125 U/L (7-52); Albumin Globulin Ratio 1.5 (0.9-2); Albumin Level 3.8 gm/dl (3.4-5.0); Alkaline Phosphatase 159 U/L (34-104); Aspartate Aminotransferase 122 U/L (13-39); Bilirubin Direct 0.7 mg/dl (0-0.2); Globulin 2.5 gm/dl (2.5-4.0); Lipase 597 U/L (11-82); Magnesium 1.7 mg/dl (1.7-2.4); Phosphorus 1.1 mg/dl (2.5-4.9); Total Protein 6.3 gm/dl (6.0-8.3)
[2022-10-21] MEDS ORDERED: POTASSIUM PHOS 3 MMOL/1 ML INFUSION IV STA (08:31)
[2022-10-21] MEDS ORDERED: POTASSIUM PHOSPHATE 30 MMOL in SODIUM CHLORIDE 0.9% 500 ML IV ONE (08:45)
[2022-10-21] MEDS: NICOTINE 21 MG/24 HR TDSY TD SCH (08:57)
[2022-10-21] MEDS: THIAMINE HCL 100 MG in SYRINGE 9 ML IV SCH (09:03)
[2022-10-21] MEDS: PANTOprazole 40 MG in SYRINGE 0 ML IV SCH ×2 (09:03→20:19)
[2022-10-21] MEDS: FOLIC ACID 1 MG in SYRINGE 9.8 ML IV SCH (09:03)
[2022-10-21] MEDS: ENOXAPARIN INJ 40 MG/0.4 ML SYR SQ SCH (09:03)
--- NOTE | 2022-10-21 09:06 | Gastroenterology Progress Note ---
Date of Service October 21, 2022 Assessment & Plan (1) Alcoholic hepatitis: (2) Acute pancreatitis: Plan: Likely caused by ETOH. No evidence of bile duct obstruction. Trigylerides were normal. No new medications. Clinically, he is slowly improving. Plan 1. ETOH and alcohol cessation. 2. Hb bumped back up again - so needs more hydration - would continue the LR at 200/hr for now. 3. Still w significant pain - would not advance diet until further improvement in pain. 4. Continue judicious use of narcotics - pt not overusing at this point. 5. Check CBC, CMP, LFTs and PT/INR tomorrow AM. 7. OP EUS in approx 6 wks. Our office will contact him to arrange. I have placed the telephone encounter w the order in [employer]. Admission and Anticipated Discharge Date Admission Date: October 19, 2022 Supervising Physician Co-Signing Physician Notes Sleeping on my exam,with a benign abdomen. Someone in his room with him labs/ imaging reviewed - agree with further plan of care as documented. Subjective 36, male, admitted on 10/19 for pancreatitis, likely cause is ETOH. Imaging w acute pancreatitis w question of small area of necrosis. On exam pt w noticeable tremors but states most recent ETOH 2 wks prior and ETOH level on arrival was <10mg/dl. Still, pts, reports of alcohol amounts have varied, thus suspect more intake and more recent that pt admitting to. Reports 8 of 10 RUQ pain worse with standing/walking and briefly worse after taking clear liquids po. + mild nausea, no vomiting. Reports passing "lots of gas." Per nursing most recent pain use OxyContin approx 5 hrs ago. He has mild HTN and tachycardia. Creatinine remains normal. LFTs: T. bili slightly increased from 1.8->2.0 Transaminases sl improved: AST 149->122; [id number]->125 Review of Systems Review of Systems: ROS: Gen: Denies weakness, fevers, weight loss Eyes: No eye redness, or pain, no recent vision changes Resp: No SOB, no cough Cardio: No palpitations/irregular beats, no chest pain GI: As per HPI, otherwise (-). : Denies pain on urination Skin: No jaundice, itching or new rashes Physical Exam Constitutional: well developed, well nourished and cooperative Eyes: PERRL, conjunctivae normal, anicteric sclerae ENMT: external ear and nose normal, oropharynx normal Neck: trachea midline, no thyromegaly Respiratory: normal respiratory effort, lungs clear to auscultation Cardiovascular: RRR, no murmur, no edema Gastrointestinal (Abdomen): Mild distention, overall soft, BS hypoactive but present throughout, moderately tender in the epigastric and RUQ area. Musculoskeletal: no cyanosis or clubbing, extremities motor strength 5/5 Skin: no rashes, warm and dry Neurologic: PERRL, EOMI, accommodation nl, no face palsy, no dysarthria Psychiatric: A+Ox3, euthymic affect Lymphatic: no cervical or axillary lymphadenopathy Results & Data Vital Signs (Past 12 Hours) Vital Signs Temp Pulse Pulse Pulse Resp BP Pulse Ox 10/21/22 07:52 37.0 C 104 H 18 136/103 H 10/21/22 02:38 36.6 C 86 18 137/108 H 100 10/21/22 05:37 37.5 C 97 H 20 152/99 H 98 10/21/22 02:00 37.9 C H 115 H 17 132/98 97 10/21/22 01:07 113 H 10/20/22 23:44 37.6 C H 10/20/22 22:24 38.1 C H 105 H 15 157/99 H 98 O2 Del Method 10/21/22 07:52 Room Air 10/21/22 02:38 Room Air 10/21/22 05:37 Room Air 10/21/22 02:00 Room Air 10/21/22 01:07 10/20/22 23:44 10/20/22 22:24 Room Air Laboratory Results WBC 5.3, Hb 12.4, HCT 34.6, PLT S132, NA 137, K3.4, CL 102, CO2 29, BUN 4, CR 0.52, glucose 81. T. bili 2.0, D bili 0.7, AST 122, ALT 125, alk phos 159. Triglycerides 74. Diagnostic Findings CTAP w IV: 1. There is prominent edema and fat stranding about the pancreatic head compatible with acute pancreatitis. There is a nonenhancing focus in the pancreatic head which may possibly represent pancreatic necrosis. 2. Thickening of the hepatic flexure and gastric and duodenal dawn, compatible with reactive inflammatory changes. 3. Hepatic steatosis. (2) Acute pancreatitis Acute pancreatitis complication: unspecified Pancreatitis type: unspecified pancreatitis type Qualified Code(s): K85.90 - Acute pancreatitis without necrosis or infection, unspecified
--- NOTE | 2022-10-21 13:58 | Hospitalist Progress Note ---
Date of Service October 21, 2022 Assessment & Plan (1) Pancreatitis: Plan: 36 y/o male with a prior hx of EtOH induced pancreatitis, EtOH hepatitis, HTN, and GERD presented to the ED today with >1 week of intractable nausea and vomiting with an inability to maintain his oral intake. Work-up in the ED today reveals elevated lipase, transaminitis - thought to have acute pancreatitis. Up until a week ago, pt was consuming 2-3 glasses of vodka per day although he r eports that he is not currently consuming EtOH due to the vomiting. He has also noticed increased tremulousness, sweats, and palpitations for the last week. Suspect there is also a component of alcohol withdrawal to his symptoms - noted to be tachycardic and hypertensive in the ED. He has a history GERD, which may also be contributing. -Likely secondary to use of alcohol with a history of pancreatitis in the past as well - NPO, aggressive IVF hydration, controlled analgesics and also antiemetics - Continue PPI and H2 angelika for reflux -Appreciate GI input and recommendation -Clinically a little better but he still has abdominal pain with nausea -Liquids have been started and will advance as tolerated -Still has pain in the abdomen and will continue with a clear liquid diet today Electrolyte abnormality To have low potassium and low phosphate Be replaced and monitor CT scan of the abdomen and pelvis IMPRESSION: 1. There is prominent edema and fat stranding about the pancreatic head compatible with acute pancreatitis. There is a nonenhancing focus in the pancreatic head which may possibly represent pancreatic necrosis. 2. Thickening of the hepatic flexure and gastric and duodenal dawn, compatible with reactive inflammatory changes. 3. Hepatic steatosis. (2) Intractable nausea and vomiting: Plan: Due to #1 (3) Alcohol abuse: Plan: History of alcohol abuse Minimal symptoms of withdrawal Gabapentin protocol for presumed alcohol withdrawal Has been having more of tremors and will start Ativan as needed (4) HTN (hypertension): Plan: Blood pressure seems to be elevated Will monitor and give as needed medications to improve blood pressure as needed (5) Transaminitis: Plan: Secondary to alcoholic hepatitis No indication of steroids We will monitor LFTs-improving (6) Tobacco abuse: (7) GERD (gastroesophageal reflux disease): Plan DVT prophylaxis Subcu Lovenox CODE STATUS Full Admission and Anticipated Discharge Date Admission Date: October 21, 2022 Subjective 10/20/2022 The patient was seen and examined in telemetry unit He has been complaining of abdominal pain with nausea but no vomiting He does have minimal tremors involving the outstretched hands No fever and or chills 10/21/2022 The patient was seen and examined in telemetry unit He has been complaining of pain in the abdomen with nausea but no vomiting He has tremors involving the outstretched hands He denies any fever and or chills Review of Systems Review of Systems: All systems reviewed and are unremarkable except as noted below Physical Exam Physical Exam: Lying in bed with minimal distress Constitutional: well developed, well nourished, + ill appearing and + obese Eyes: PERRL, conjunctivae normal, anicteric sclerae Neck: trachea midline, no thyromegaly Respiratory: no respiratory distress Auscultation: lungs clear to auscultation bilaterally Cardiovascular: Rate/Rhythm: regular rate and regular rhythm; not tachycardic Heart Sounds: normal S1 and normal S2; no murmur Extremities: no edema Gastrointestinal (Abdomen): Inspection/Auscultation: normal bowel sounds; abdomen not distended Percussion/Palpation: + abdomen tender (Mostly in the epigastrium) and abdomen soft Musculoskeletal: No acute arthritis involving any joint Neurologic: normal touch/pain/proprioception and moves all extremities; no f ocal motor deficits Psychiatric: A+Ox3, euthymic affect Lymphatic: no cervical or axillary lymphadenopathy Results & Data Results & Data Vital Signs (Past 12 Hours) Vital Signs Temp Pulse Pulse Pulse Resp BP Pulse Ox 10/21/22 13:27 37.3 C 95 H 18 127/85 95 10/21/22 08:00 108 H 10/21/22 07:52 37.0 C 104 H 18 136/103 H 10/21/22 02:38 36.6 C 86 18 137/108 H 100 10/21/22 05:37 37.5 C 97 H 20 152/99 H 98 10/21/22 02:00 37.9 C H 115 H 17 132/98 97 O2 Del Method 10/21/22 13:27 Room Air 10/21/22 08:00 10/21/22 07:52 Room Air 10/21/22 02:38 Room Air 10/21/22 05:37 Room Air 10/21/22 02:00 Room Air Laboratory Results Short CBC 10/21/22 Range/Units 05:38 WBC 5.15 (4.8-10.8) K/ul Hgb 12.4 L (14.0-18.0) g/dl Hct 34.6 L (42.0-52.0) % Plt Count 132 (130-400) K/uL BMP 10/21/22 05:38 Sodium 137 Potassium 3.4 L Chloride 102 Carbon Dioxide 29 BUN 4 L Creatinine 0.52 L Glucose 81 Calcium 8.5 L Liver Function 10/21/22 Range/Units 05:38 Total Bilirubin 2.0 H (0.2-1.0) mg/dl Direct Bilirubin 0.7 H (0-0.2) mg/dl AST 122 H (13-39) U/L ALT 125 H (7-52) U/L Alkaline Phosphatase 159 H (34-104) U/L Albumin 3.8 (3.4-5.0) gm/dl Medications Administered Current Inpatient Medications Acetaminophen (Acetaminophen 325 Mg Tab) 325 mg PO Q6H PRN PRN Reason: Mild Pain (Scale 1, 2, 3) Stop: 11/19/22 22:12 Enoxaparin Sodium (Enoxaparin Inj 40 Mg/0.4 Ml Syr) 40 mg SQ QAM [facility] Stop: 11/19/22 08:59 Last Admin: 10/21/22 09:03 Dose: 40 mg Gabapentin (Gabapentin 600 Mg Tab) 600 mg PO Q24H [facility] Stop: 10/23/22 02:31 Gabapentin (Gabapentin 600 Mg Tab) 600 mg PO Q12H [facility] Stop: 10/22/22 02:31 Pantoprazole Sodium 40 mg/ (Syringe) 10 mls @ 5 mls/min IV BID [facility] Stop: 11/18/22 13:59 Last Admin: 10/21/22 09:03 Dose: 5 mls/min Thiamine HCl 100 mg/ Syringe 10 mls @ 2 mls/min IV QAM [facility] Stop: 11/18/22 16:34 Last Admin: 10/21/22 09:03 Dose: 2 mls/min Folic Acid 1 mg/ Syringe 10 mls @ 5 mls/min IV QAM [facility] Stop: 11/18/22 16:34 Last Admin: 10/21/22 09:03 Dose: 5 mls/min Piperacillin Sod/Tazobactam (Sod 3.375 gm/ Dextrose) 115 mls @ 28.75 mls/hr IV Q8H [facility]; Protocol Stop: 10/30/22 03:59 Last Admin: 10/21/22 12:23 Dose: 28 mls/hr Promethazine HCl 6.25 mg/ (Sodium Chloride) 50.25 mls @ 201 mls/hr IV Q6H PRN PRN Reason: Nausea And Vomiting Stop: 11/19/22 02:49 Last Infusion: 10/20/22 15:29 Dose: Infused Lactated Ringer's (Lr) 1,000 mls @ 200 mls/hr IV .Q5H [facility] Stop: 10/22/22 00:59 Last Admin: 10/21/22 11:29 Dose: 200 mls/hr Potassium Phosphate 30 mmol/ (Sodium Chloride) 510 mls @ 88 mls/hr IV ONE ONE Stop: 10/21/22 14:32 Last Admin: 10/21/22 08:57 Dose: 88 mls/hr Ketorolac Tromethamine (Ketorolac Tromethamine 15 Mg/Ml Vial) 15 mg IV Q6H PRN PRN Reason: Pain Stop: 10/24/22 17:08 Last Admin: 10/21/22 05:00 Dose: 15 mg Lorazepam (Lorazepam 2 Mg/1 Ml Vial) 3 mg IV ONCE PRN; Protocol PRN Reason: EtOH Withdrawal AWSS Score 10+ Lorazepam (Lorazepam 2 Mg/1 Ml Vial) 2 mg IV UD PRN; Protocol PRN Reason: EtOH Withdrawal AWSS Score 8,9 Stop: 11/19/22 22:20 Last Admin: 10/20/22 22:35 Dose: 2 mg Lorazepam (Lorazepam 2 Mg/1 Ml Vial) 1 mg IV UD PRN; Protocol PRN Reason: EtOH Withdrawal AWSS Score 6,7 Stop: 11/19/22 22:20 Last Admin: 10/21/22 05:40 Dose: 1 mg Miscellaneous (Pindolol 10 Mg Tablet-Order Awaiting Action) 1 each N/A QS [facility] Stop: 11/18/22 16:59 Last Admin: 10/20/22 22:22 Dose: Not Given Miscellaneous (Remove Nicoderm Patch) 1 each N/A DAILY@0859 [facility] Stop: 11/19/22 08:58 Last Admin: 10/21/22 09:03 Dose: 1 each Nicotine (Nicotine 21 Mg/24 Hr Tdsy) 21 mg TD QAM [facility] Stop: 11/18/22 19:14 Last Admin: 10/21/22 08:57 Dose: 21 mg Oxycodone HCl (Oxycodone Hcl Ir 5 Mg Tab (Immediate Release)) 5 mg PO Q4H PRN PRN Reason: Pain Stop: 11/03/22 22:12 Last Admin: 10/21/22 02:19 Dose: 5 mg
[2022-10-22] MEDS: GABAPENTIN 600 MG TAB PO SCH (02:09)
[2022-10-22] MEDS: LORazepam 2 MG/1 ML VIAL IV PRN (02:16)
[2022-10-22] MEDS: PIPERACILLIN/TAZOBACTAM 3.375 GM in DEXTROSE 5% 100 ML IV SCH (04:15)
[2022-10-22 07:26] LABS: Basophils # (auto) 0.06 K/uL (0-0.2); Basophils % (auto) 0.9 %; Eosinophils # (auto) 0.19 K/uL (0-0.50); Hematocrit (blood only) 34.9 % (42.0-52.0); Hemoglobin 12.4 g/dl (14.0-18.0); Immature Granulocytes # (auto) 0.03 K/uL (0.01-0.20); Immature Granulocytes % (auto) 0.5 %; Lymphocytes # (auto) 1.71 K/uL (1.2-3.4); Lymphocytes % (auto) 26.8 %; Mean Corpuscular Hemoglobin 33.9 pg (25.0-34.0); Mean Corpuscular Hgb Conc 35.5 g/dL (32.0-36.0); Mean Corpuscular Volume 95.4 fL (80.0-100.0); Monocytes # (auto) 0.99 K/uL (0.11-0.59); Monocytes % (auto) 15.5 %; Neutrophils # (auto) 3.41 K/uL (1.40-6.50); Neutrophils % (auto) 53.3 %; Platelet Count 194 K/uL (130-400); RDW Coefficient of Variation 12.6 % (11.5-14.5); RDW Standard Deviation 43.8 fL (36.4-46.3); Red Blood Count 3.66 M/uL (4.70-6.10); White Blood Count 6.39 K/ul (4.8-10.8)
[2022-10-22 07:45] LABS: Alanine Aminotransferase 118 U/L (7-52); Alkaline Phosphatase 150 U/L (34-104); Anion Gap 9 (3-11); Aspartate Aminotransferase 100 U/L (13-39); BUN Creatinine Ratio 3.5 (10-20); Bilirubin Direct 0.4 mg/dl (0-0.2); Bilirubin,Total 1.3 mg/dl (0.2-1.0); Blood Urea Nitrogen 2 mg/dl (6-23); Carbon Dioxide 25 mmol/L (21-32); Chloride 104 mmol/L (98-107); Creatinine Clr Calc Pharmacy 180.2 ml/min; Est GFR (African American) > 150.0 ml/min; Est GFR (Non-African American) 131.2 ml/min; Glucose 98 mg/dl (70-99(Fasting)); Magnesium 1.4 mg/dl (1.7-2.4); Phosphorus 2.3 mg/dl (2.5-4.9); Potassium 2.9 mmol/L (3.5-5.1); Sodium 138 mmol/L (136-145); Total Protein 6.5 gm/dl (6.0-8.3)
[2022-10-22 07:48] LABS: INR 1.3 (0.9-1.1); Prothrombin Time 13.3 Seconds (9.0-12.0)
[2022-10-22] MEDS ORDERED: POTASSIUM PHOS 3 MMOL/1 ML INFUSION IV STA (08:02)
[2022-10-22 08:07] LABS: Lipase 749 U/L (11-82)
[2022-10-22] MEDS ORDERED: POTASSIUM CHLORIDE / WTR 10 MEQ/100 ML PLCT IV SCH (08:15)
[2022-10-22] MEDS ORDERED: MAGNESIUM SULFATE / D5W 1 GM/100 ML BAG IV SCH (08:15)
[2022-10-22] MEDS: NICOTINE 21 MG/24 HR TDSY TD SCH (08:22)
[2022-10-22] MEDS: ENOXAPARIN INJ 40 MG/0.4 ML SYR SQ SCH (08:22)
[2022-10-22] MEDS: PANTOprazole 40 MG in SYRINGE 0 ML IV SCH (08:23)
[2022-10-22] MEDS: THIAMINE HCL 100 MG in SYRINGE 9 ML IV SCH (08:23)
[2022-10-22] MEDS: FOLIC ACID 1 MG in SYRINGE 9.8 ML IV SCH (08:24)
[2022-10-22] MEDS ORDERED: POTASSIUM PHOSPHATE 21 MMOL in SODIUM CHLORIDE 0.9% 500 ML IV ONE (08:30)
--- NOTE | 2022-10-22 10:13 | Gastroenterology Progress Note ---
Date of Service October 22, 2022 Assessment & Plan (1) Alcoholic hepatitis: Plan: Improving, DF today is 7.3. No indication for steroids or [place]. Needs complete, permanent ETOH abstention. (2) Acute pancreatitis: Plan: Likely caused by ETOH. No evidence of bile duct obstruction. Trigylerides were normal. No new medications. Clinically, he is much improved improving. Plan 1. ETOH and smoking cessation. 2. Low fat diet. Still on clear liquids at this point and we would prefer for him to stay as an IP until we are able to see that he tolerates regular consistency low fat food, but pt is very motivated to go home. I recommended that he slowly add back a regular consistency low fat diet, and not to eat any fried foods or other high fat foods. 3. OP EUS. Pt tells me he received a call to schedule. I checked the OP records, he was called and our office is awaiting his call back to schedule the EUS. I reminded the pt to call our office and provided the phone number. Gi will sign off. Admission and Anticipated Discharge Date Admission Date: October 21, 2022 Supervising Physician Co-Signing Physician Notes Agree with plan as documented. Subjective Pt reports feeling better today and tells me he is going home. His sons have a dance tomorrow night and they needed to get their tuxedos today. Doing well w clear liquids po. No N/V. Tells me pain is much better, just mild, upper abd discomfort. Passing loose BMs. LFTs continuing to improve. Though had mild temsp on 10/20, early on 10/21, afebrile for 24 hrs. Lipase is increased at 729 but we often see the lipase level go up and down during pancreatitis. Review of Systems Review of Systems: ROS: Gen: Denies weakness, fevers, weight loss Eyes: No eye redness, or pain, no recent vision changes Resp: No SOB, no cough Cardio: No palpitations/irregular beats, no chest pain GI: As per HPI, otherwise (-). : Denies pain on urination Skin: No jaundice, itching or new rashes Physical Exam Constitutional: well developed, well nourished and cooperative Eyes: PERRL, conjunctivae normal, anicteric sclerae ENMT: external ear and nose normal, oropharynx normal Neck: trachea midline, no thyromegaly Respiratory: normal respiratory effort, lungs clear to auscultation Cardiovascular: RRR, no murmur, no edema Gastrointestinal (Abdomen): Inspection/Auscultation: abdomen normal to inspection and normal bowel sounds; abdomen not distended Percussion/Palpation: + abdomen tender (mild epigastric tenderness) and abdomen soft; no guarding Musculoskeletal: no cyanosis or clubbing, extremities motor strength 5/5 Skin: no rashes, warm and dry Neurologic: PERRL, EOMI, accommodation nl, no face palsy, no dysarthria Psychiatric: A+Ox3, euthymic affect Lymphatic: no cervical or axillary lymphadenopathy Results & Data Vital Signs (Past 12 Hours) Vital Signs Temp Pulse Pulse Resp BP Pulse Ox O2 Del Method 10/22/22 08:30 88 10/22/22 07:44 37.1 C 82 18 131/97 Room Air 10/22/22 00:00 80 10/22/22 03:44 37.0 C 82 18 150/99 H 98 Room Air 10/22/22 00:00 37.1 C 73 20 154/102 H 98 Room Air Laboratory Results T Bili 1.3, AST 0.4, AST 100, ALT 118, Alk Phos 150. WBC 6.3, Hb 12.4, Hct 34.9, platelets 195, PT 13.3, INR 1.3, Na 138, K 2.9. Cl104, CO2 25, BUN 21, Cr 0.5, glucose 98. Diagnostic Findings CTAP w IV 10/19/22: 1. There is prominent edema and fat stranding about the pancreatic head compatible with acute pancreatitis. There is a nonenhancing focus in the pancreatic head which may possibly represent pancreatic necrosis. 2. Thickening of the hepatic flexure and gastric and duodenal dawn, compatible with reactive inflammatory changes. 3. Hepatic steatosis. (2) Acute pancreatitis Acute pancreatitis complication: unspecified Pancreatitis type: unspecified pancreatitis type Qualified Code(s): K85.90 - Acute pancreatitis without necrosis or infection, unspecified
[2022-10-23] MEDS ORDERED: GABAPENTIN 600 MG TAB PO SCH (02:30)
--- NOTE | 2022-10-23 07:50 | Discharge Summary ---
Date of Service October 22, 2022 Admission HPI Per Admitting Provider This is a 36 y/o male with a hx of pancreatitis, EtOH abuse, EtOH hepatitis, GERD, HTN, tobacco abuse, and migraine who presented to the ED today with intractable nausea, vomiting x 1-2 weeks with an inability to maintain his oral intake at home. He reports that he started almost two week ago with vomiting and diarrhea after his kids developed a stomach bug with similar symptoms. All of them were sick for several days but pt has continued with symptoms even when the rest of his family has improved. He reports vomiting as often as every hour while awake - episodes of emesis are preceded by nausea, transient relief of nausea afterwards before cycle restarts. Vomiting of whatever he tries to take by mouth but denies hematemesis. Generalized abdominal pain and soreness - reports muscles are all sore from vomiting so frequently. Denies fevers but has had frequent chills, sweats, and shaking. Denies VALE, dizziness. Has noted dark urine, decreased urine frequency/amount but denies dysuria or hematuria. He reports chest burning and palpitations but attributes this to known hx of acid reflux. He drinks 2-3 glasses of vodka daily at baseline but reports last drink was at least a week ago due to his current symptoms. He smokes 1/2-3/4 pack per day but also has not been smoking due to symptoms./ He feels very weak and fatigued, has some upper back pain. He has tried Zofran ODT at home but doesn't feel like it helps, doesn't like the taste so has used sparingly. Initial diarrhea has resolved. Last BM was 3-4 days ago, which he attributes to not eating. Admission Exam Per Admitting Provider Constitutional: + thin and + disheveled; + uncomfortable Eyes:L + anicteric sclerae ENMT: dry oral mucosa Neck: trachea midline Respiratory: no respiratory distress and no labored breathing Auscultation: lungs clear to auscultation bilaterally; no rales, no rhonchi and no wheezes Cardiovascular: Rate/Rhythm: regular rhythm and + tachycardic Vessels: radial pulses present Extremities: no pedal edema Gastrointestinal (Abdomen): Inspection/Auscultation: normal bowel sounds; abdomen not distended Percussion/Palpation: + abdomen tender (diffuse) and + guarding (voluntary) Musculoskeletal: Head/Neck/Chest: normocephalic, head atraumatic and neck supple Skin: no jaundice Neurologic: moves all extremities; no focal motor deficits and not confused Motor/Sensory: + tremor (generalized tremulousness ) Psychiatric: Orientation: alert and oriented x 3 Affect: + anxious affect Principal Diagnosis PANCREATITIS Discharge Exam Lying in bed with minimal distress Constitutional well developed, well nourished, + ill appearing and + obese Eyes PERRL, conjunctivae normal, anicteric sclerae Neck trachea midline, no thyromegaly Respiratory no respiratory distress Auscultation: lungs clear to auscultation bilaterally Cardiovascular Rate/Rhythm: regular rate and regular rhythm; not tachycardic Heart Sounds: normal S1 and normal S2; no murmur Extremities: no edema Gastrointestinal (Abdomen) Inspection/Auscultation: normal bowel sounds; abdomen not distended Percussion/Palpation: + abdomen tender (Mostly in the epigastrium) and abdomen soft Neurologic normal touch/pain/proprioception and moves all extremities; no focal motor deficits Psychiatric A+Ox3, euthymic affect Lymphatic no cervical or axillary lymphadenopathy Discharge Data Allergies Allergy/AdvReac Type Severity Reaction Status Date / Time shrimp Allergy Severe facial Verified 10/20/21 00:07 swelling erythromycin base Allergy Unknown seizure Verified 10/19/21 23:05 Consultations 10/19/22 12:36 ED Decision to Admit Stat 10/19/22 16:35 Consult Gastroenterology Routine Ordered Studies 10/19/22 15:27 CT Abd and Pelvis [CT abd pelvis IV con only] Urgent Hospital Course (1) Pancreatitis: 36 y/o male with a prior hx of EtOH induced pancreatitis, EtOH hepatitis, HTN, and GERD presented to the ED today with >1 week of intractable nausea and vomiting with an inability to maintain his oral intake. Work-up in the ED today reveals elevated lipase, transaminitis - thought to have acute pancreatitis. Up until a week ago, pt was consuming 2-3 glasses of vodka per day although he reports that he is not currently consuming EtOH due to the vomiting. He has also noticed increased tremulousness, sweats, and palpitations for the last week. Suspect there is also a component of alcohol withdrawal to his symptoms - noted to be tachycardic and hypertensive in the ED. He has a history GERD, which may also be contributing. -Likely secondary to use of alcohol with a history of pancreatitis in the past as well - NPO, aggressive IVF hydration, controlled analgesics and also antiemetics - Continue PPI and H2 angelika for reflux -Appreciate GI input and recommendation -Clinically a little better but he still has abdominal pain with nausea -Liquids have been started and will advance as tolerated -Still has pain in the abdomen and will continue with a clear liquid diet today Electrolyte abnormality To have low potassium and low phosphate Be replaced and monitor CT scan of the abdomen and pelvis IMPRESSION: 1. There is prominent edema and fat stranding about the pancreatic head compatible with acute pancreatitis. There is a nonenhancing focus in the pancreatic head which may possibly represent pancreatic necrosis. 2. Thickening of the hepatic flexure and gastric and duodenal dawn, compatible with reactive inflammatory changes. 3. Hepatic steatosis. (2) Intractable nausea and vomiting: Due to #1 (3) Alcohol abuse: History of alcohol abuse Minimal symptoms of withdrawal Gabapentin protocol for presumed alcohol withdrawal Has been having more of tremors and will start Ativan as needed (4) HTN (hypertension): Blood pressure seems to be elevated Will monitor and give as needed medications to improve blood pressure as needed (5) Transaminitis: Secondary to alcoholic hepatitis No indication of steroids We will monitor LFTs-improving (6) Tobacco abuse: (7) GERD (gastroesophageal reflux disease): Plan DVT prophylaxis Subcu Lovenox CODE STATUS Full Total Time Total Time Spent Total Time Spent (In Minutes): 20 minutes Discharge Plan Discharge Items Patient Disposition: Against Medical Advice Reason For Visit: PANCREATITIS Activity: Resume your previous activity Non-emergency contact: Primary Care Provider Follow-up/Referrals: Dheeraj Tee MD [Primary Care Provider] - Pending Studies at Discharge: No Stand-Alone Forms: [facility], Smoking Cessation Medications and DC Order Prescriptions: Continued pindolol 10 mg tablet 15 mg PO BID famotidine 40 mg tablet 40 mg PO HS ondansetron 8 mg tablet,disintegrating 8 mg PO TID PRN (Reason: Nausea) cyclobenzaprine 5 mg tablet 5 mg PO TID PRN (Reason: Muscle Spasm) chlorthalidone 25 mg tablet 12.5 mg PO QAM pantoprazole 40 mg tablet,delayed release (DR/EC) 40 mg PO BID montelukast 10 mg tablet 10 mg PO DAILY potassium chloride 10 mEq capsule, extended release 20 meq PO BID epinephrine 0.3 mg/0.3 mL auto-injector 0.3 mg IM .uda PRN (Reason: anaphylaxis) Qty: 2 0RF sucralfate 1 gram Tablet 1 g PO QID naltrexone 50 mg Tablet 50 mg PO DAILY hydroxyzine HCl 25 mg Tablet 25 mg PO TID PRN (Reason: Other) Rx Instructions: prn for alcohol cravings magnesium oxide 400 mg magnesium Tablet 400 mg PO DAILY cetirizine 10 mg Tablet 10 mg PO DAILY fluticasone propionate 50 mcg/actuation [place],Suspension 2 spray INTRANASAL DAILY PRN (Reason: Allergy Symptoms) Rx Instructions: administer into each nostril Discharge Orders: Left Against Medical Advice (Routine); Ordered 10/22/22 Ordered By: Alexandru Garcia Admission Data Admit Date/Time: 10/21/22 12:21 Attending Provider: Alexandru Garcia Admit Provider: Meredith Capellan Primary Care Provider: Dheeraj Tee Other Providers: Meredith Capellan ; Susi Keen
== END 2022-10-22 09:45 | disposition left against medical advice (07) | DRG 439 ==
LOC: ED 11:07 → 2E 11:07 → SUATTDRO 13:37 → 2E 16:29

== ENCOUNTER 2022-11-16 12:27 | Inpatient (IN) ==
[2022-11-16 12:56] LABS: Appearance Urine Clear (Clear); Bilirubin Urine Negative (Negative); Blood Urine Negative (Negative); Color Urine Dark Yellow; Glucose Urine UA Negative (Negative); Ketones Urine Negative (Negative); Leukocyte Esterase Urine Negative (Negative); Nitrite Urine Negative (Negative); Protein Urine Negative (Negative); Specific Gravity Urine 1.025 (1.000-1.030); Urobilinogen Urine Negative (Negative); pH Urine >= 9.0 (4.5-7.5)
--- NOTE | 2022-11-16 13:33 | Emergency Department Note ---
Impression & Plan Acute pancreatitis, Intractable nausea and vomiting, Abdominal pain, Leukocytosis ED Provider Note NAME: JERSON FISHER AGE: 36 SEX: M : 1985 ARRIVES VIA: Walk-In INFORMANT: Patient ED PROVIDER(S): Luis Post DO CHIEF COMPLAINT: abdominal pain HPI: Patient is a 36-year-old male who presents to the ER for mid epigastric abdominal pain radiating through to the back associate with nausea and vomiting. This started this morning around 3 AM. Does have a history of previous alcohol pancreatitis and hepatitis. No headache or change in vision. No chest pain or shortness of breath. No dysuria, urgency, or frequency. No other exacerbating or remitting factors. He notes this feels like his previous pancreatitis but has not drank recently. Does have a history of appendectomy, cholecystectomy and hernia repair. PAST MEDICAL HISTORY:See Below PAST SURGICAL HISTORY:See Below FAMILY HISTORY:See Below SOCIAL HISTORY:See Below HOME MEDICATIONS:See Below ALLERGIES:See Below VITALS:See Below PHYSICAL EXAMINATION: GENERAL: Sitting up in bed, alert, well appearing, well nourished, no distress, non-toxic EYE EXAM: normal conjunctiva. OROPHARYNX: no exudate, no erythema, lips, buccal mucosa, and tongue normal and mucous membranes are moist NECK: supple, no nuchal rigidity, no adenopathy, non-tender LUNGS: Clear to auscultation. Normal chest wall mechanics HEART: no murmurs, S1 normal and S2 normal ABDOMEN: abdomen soft, TTP in epigastric region, normo-active bowel sounds, no masses, no rebound or guarding. UPPER EXTREMITIES: upper extremities are grossly normal. LOWER EXTREMITIES: No pitting edema. NEURO EXAM: Normal sensorium, cranial nerves II-XII grossly intact, normal speech, no gross weakness of arms, no gross weakness of legs. MEDICAL DECISION MAKING: Patient is a 36-year-old male who presents ER for above-stated complaint. IV was established blood work was obtained. Upon presentation he was found to be slightly tachycardic. He was afebrile. Labs were obtained and showed a leukocytosis of 37,000. No significant anemia. Platelets were mildly up at 800. BMP along with LFTs were unremarkable. Lipase elevated at 440 consistent with pancreatitis. UA was clean. COVID was negative. He was given IV fluids and IV Zosyn. He was given multiple doses of IV narcotics. CT abdomen pelvis showed pancreatitis with with a cyst present and fluid and this was discussed with GI. Dr. Cooley reviewed the images and agreed with admission to the hospital service but noted that we should contact [facility] as they can see him tomorrow as patient was seen by them previously. Patient was updated at bedside. He was resting comfortably. He was admitted to the hospital service for further evaluation and work-up. Triage Nursing notes reviewed. Limited review of prior medical records performed Vital Signs: reviewed and remarkable for no significant abnormalities Differential diagnosis: Differential diagnoses includes but is not limited to gastritis, peptic ulcer disease, GERD, gallbladder disease, pancreatitis, small bowel obstruction, appendicitis, diverticulitis, hernia, urinary tract infection, torsion, /ectopic (if female), perforation, trauma, infectious. ER treatment provided: See below Diagnostics interpreted by me include EKG and cardiac monitoring as listed below: -Cardiac Monitoring: An order was placed for continuous cardiac monitoring. The monitor shows a rate of 101 with sinus rhythm. -ECG: none -Laboratory studies:Interpreted by me as stated above in MDM and shown below. Imaging studies: Xrays: As interpreted by me:none CTs show: CT abdomen pelvis shows inflammatory stranding around the pancreas per my read CT abdomen pelvis per radiology showed a pseudocyst with edema around the pancreas and inflammation Consultation(s): Discussed with gastroenterology as described above Discussed with the [facility] as described above Procedures:none Critical Care: None Past Med/Surg History Medical History Alcohol abuse GERD (gastroesophageal reflux disease) HTN (hypertension) Migraine Tobacco abuse Surgical History History of colonoscopy History of esophagogastroduodenoscopy (EGD) History of umbilical hernia repair 06/2020 Hx of appendectomy S/P cholecystectomy 06/2020 Family History Brother Hypertension Grandfather (Paternal) Parkinson disease Social History Smoking Status: Never smoker Tobacco Type: Cigarettes packs per day: 1.5; Cigarettes Per Day: 30; Second Hand Exposure: No; Do You Dip or Chew Tobacco: No; Hx Alcohol Use: Yes Alcohol type: beer and hard liquor Alcohol type Comment: vodka Alcohol Intake Frequency Comment: night; 2-3 drinks with 3-6 shots of vodka total Hx Substance Use: No Preferred Language: Portuguese Communication Ability: Effective Lithographic Photographer Required: No Beliefs That Will Affect Care: None marital status: Current Living Situation: Family Current Living Situation Comment: and kids current occupational status: employed Feels Safe at Home: Yes Assistive Devices: None Allergies Allergies Allergy/AdvReac Type Severity Reaction Status Date / Time erythromycin base AdvReac Severe seizure Verified 11/16/22 15:34 Home Meds Home Medications Medication Instructions Recorded Confirmed famotidine 40 mg tablet 40 mg PO BID 02/22/21 11/16/22 ondansetron 8 mg disintegrating 8 mg PO TID PRN Nausea 02/22/21 11/16/22 tablet pindolol 10 mg tablet 10 mg PO BID 02/22/21 11/16/22 chlorthalidone 25 mg tablet 12.5 mg PO QAM 10/19/21 11/16/22 cyclobenzaprine 5 mg tablet 5 mg PO TID PRN Muscle Spasm 10/19/21 11/16/22 montelukast 10 mg tablet 10 mg PO DAILY 10/19/21 11/16/22 pantoprazole 40 mg tablet,delayed 40 mg PO BID 10/19/21 11/16/22 release potassium chloride 10 mEq 20 meq PO BID 10/19/21 11/16/22 capsule,extended release cetirizine 10 mg tablet 10 mg PO DAILY 10/19/22 11/16/22 fluticasone propionate 50 2 spray intranasal DAILY PRN 10/19/22 11/16/22 mcg/actuation nasal Allergy Symptoms spray,suspension hydroxyzine HCl 25 mg tablet 25 mg PO TID PRN ALCOHOL CRAVINGS 10/19/22 11/16/22 magnesium oxide 400 mg PO HS 10/19/22 11/16/22 naltrexone 50 mg tablet 50 mg PO DAILY 10/19/22 11/16/22 acetaminophen 500 mg tablet 1,000 mg PO DIRECTED PRN 11/16/22 11/16/22 (Tylenol Extra Strength) PAIN/FEVER nnjrbqn-gsdmctaeolaly-mhcqgjyi 250 1 tab PO DIRECTED PRN Headache 11/16/22 11/16/22 mg-250 mg-65 mg tablet (Excedrin Migraine) buspirone 15 mg tablet 15 - 30 mg PO HS PRN Insomnia 11/16/22 11/16/22 clotrimazole-betamethasone 1 1 applic topical BID PRN Skin 11/16/22 11/16/22 %-0.05 % topical cream Irritation diphenhydramine HCl 25 mg capsule 50 mg PO DIRECTED PRN Allergic 11/16/22 11/16/22 (Benadryl) Reaction epinephrine 0.3 mg/0.3 mL 0.3 mg IM DIRECTED PRN 11/16/22 11/16/22 injection, auto-injector anaphylaxis pindolol 5 mg tablet 5 mg PO BID 11/16/22 11/16/22 Results & Data (ED) Vital Signs Vital Signs - 24 hr 11/16/22 12:34 11/16/22 13:42 11/16/22 13:44 Temperature 36.5 C Temperature Source Temporal Artery Scan Pulse Rate 98 H 98 H Pulse Rate [Apical] 97 H Pulse Rhythm Regular Respiratory Rate 16 18 Respiratory Effort / Characteristics Non-Labored Spontaneous Respiratory Depth Normal Normal Blood Pressure 129/88 Blood Pressure [Right Arm] 141/101 H Blood Pressure Mean 101 Blood Pressure Mean [Right Arm] 114 Pulse Oximetry 99 99 Oxygen Delivery Method Room Air Room Air Sepsis Recent Fever Within 48 Hours No Sepsis New/Unexplained Change in Mental Status No Sepsis Action Taken by Nursing No Action Required 11/16/22 14:33 11/16/22 15:01 11/16/22 15:42 Temperature Temperature Source Pulse Rate Pulse Rate [Apical] 102 H 104 H 108 H Pulse Rhythm Respiratory Rate 18 18 16 Respiratory Effort / Characteristics Non-Labored Spontaneous Non-Labored Spontaneous Non-Labored Respiratory Depth Normal Normal Normal Blood Pressure Blood Pressure [Right Arm] 126/83 128/99 124/87 Blood Pressure Mean Blood Pressure Mean [Right Arm] 97 108 99 Pulse Oximetry 98 98 99 Oxygen Delivery Method Room Air Room Air Room Air Sepsis Recent Fever Within 48 Hours Sepsis New/Unexplained Change in Mental Status Sepsis Action Taken by Nursing 11/16/22 16:32 11/16/22 17:11 11/16/22 17:33 Temperature 37.9 C H Temperature Source Oral Pulse Rate 109 H Pulse Rate [Apical] 110 H 109 H Pulse Rhythm Respiratory Rate 16 16 Respiratory Effort / Characteristics Non-Labored Non-Labored Respiratory Depth Normal Normal Blood Pressure Blood Pressure [Right Arm] 110/74 134/88 Blood Pressure Mean Blood Pressure Mean [Right Arm] 86 103 Pulse Oximetry 98 96 Oxygen Delivery Method Room Air Room Air Sepsis Recent Fever Within 48 Hours Sepsis New/Unexplained Change in Mental Status Sepsis Action Taken by Nursing Laboratory Data 11/16/22 13:36 11/16/22 13:36 Lab Results 11/16/22 11/16/22 11/16/22 Range/Units 12:50 13:36 13:36 WBC 37.81 H* (4.8-10.8) K/ul RBC 4.74 (4.70-6.10) M/uL Hgb 15.2 (14.0-18.0) g/dl Hct 45.2 (42.0-52.0) % MCV 95.4 (80.0-100.0) fL MCH 32.1 (25.0-34.0) pg MCHC 33.6 (32.0-36.0) g/dL RDW Std Deviation 55.1 H (36.4-46.3) fL RDW Coeff of Jeremie 15.7 H (11.5-14.5) % Plt Count 800 H (130-400) K/uL MPV 9.6 (9.4-12.4) fL Immature Gran % (Auto) 1.8 % Neut % (Auto) 88.9 % Lymph % (Auto) 5.1 % [place] % (Auto) 3.8 % Eos % (Auto) 0.1 % Baso % (Auto) 0.3 % Neut # (Auto) 33.68 H (1.40-6.50) K/uL Lymph # (Auto) 1.91 (1.2-3.4) K/uL [place] # (Auto) 1.42 H (0.11-0.59) K/uL Eos # (Auto) 0.02 (0-0.50) K/uL Baso # (Auto) 0.11 (0-0.2) K/uL Immature Gran # (Auto) 0.67 H (0.01-0.20) K/uL Toxic Vacuolation 1+ Sodium 134 L (136-145) mmol/L Potassium 4.7 (3.5-5.1) mmol/L Chloride 97 L (98-107) mmol/L Carbon Dioxide 28 (21-32) mmol/L Anion Gap 9 (3-11) BUN 11 (6-23) mg/dl Creatinine 0.64 (0.6-1.4) mg/dl Est Cr Clr Drug Dosing 110.9 ml/min Est GFR ( Amer) 145.0 ml/min Est GFR (Non-Af Amer) 125.1 ml/min BUN/Creatinine Ratio 17.2 (10-20) Glucose 110 H (70-99(Fasting)) mg/dl Calcium 10.3 (8.6-10.3) mg/dl Total Bilirubin 0.7 (0.2-1.0) mg/dl AST 34 (13-39) U/L ALT 39 (7-52) U/L Alkaline Phosphatase 217 H (34-104) U/L Total Protein 9.2 H (6.0-8.3) gm/dl Albumin 4.4 (3.4-5.0) gm/dl Globulin 4.8 H (2.5-4.0) gm/dl Albumin/Globulin Ratio 0.9 (0.9-2) Lipase 437 H (11-82) U/L Urine Color Dark Yellow Urine Appearance Clear (Clear) Urine pH >= 9.0 H (4.5-7.5) Ur Specific [place] 1.025 (1.000-1.030) Urine Protein Negative (Negative) Urine Glucose (UA) Negative (Negative) Urine Ketones Negative (Negative) Urine Blood Negative (Negative) Urine Nitrite Negative (Negative) Urine Bilirubin Negative (Negative) Urine Urobilinogen Negative (Negative) Ur Leukocyte Esterase Negative (Negative) SARS-CoV-2, RNA, NAAT (NEGATIVE) 11/16/22 Range/Units 14:49 WBC (4.8-10.8) K/ul RBC (4.70-6.10) M/uL Hgb (14.0-18.0) g/dl Hct (42.0-52.0) % MCV (80.0-100.0) fL MCH (25.0-34.0) pg MCHC (32.0-36.0) g/dL RDW Std Deviation (36.4-46.3) fL RDW Coeff of Jeremie (11.5-14.5) % Plt Count (130-400) K/uL MPV (9.4-12.4) fL Immature Gran % (Auto) % Neut % (Auto) % Lymph % (Auto) % [place] % (Auto) % Eos % (Auto) % Baso % (Auto) % Neut # (Auto) (1.40-6.50) K/uL Lymph # (Auto) (1.2-3.4) K/uL [place] # (Auto) (0.11-0.59) K/uL Eos # (Auto) (0-0.50) K/uL Baso # (Auto) (0-0.2) K/uL Immature Gran # (Auto) (0.01-0.20) K/uL Toxic Vacuolation Sodium (136-145) mmol/L Potassium (3.5-5.1) mmol/L Chloride (98-107) mmol/L Carbon Dioxide (21-32) mmol/L Anion Gap (3-11) BUN (6-23) mg/dl Creatinine (0.6-1.4) mg/dl Est Cr Clr Drug Dosing ml/min Est GFR ( Amer) ml/min Est GFR (Non-Af Amer) ml/min BUN/Creatinine Ratio (10-20) Glucose (70-99(Fasting)) mg/dl Calcium (8.6-10.3) mg/dl Total Bilirubin (0.2-1.0) mg/dl AST (13-39) U/L ALT (7-52) U/L Alkaline Phosphatase (34-104) U/L Total Protein (6.0-8.3) gm/dl Albumin (3.4-5.0) gm/dl Globulin (2.5-4.0) gm/dl Albumin/Globulin Ratio (0.9-2) Lipase (11-82) U/L Urine Color Urine Appearance (Clear) Urine pH (4.5-7.5) Ur Specific [place] (1.000-1.030) Urine Protein (Negative) Urine Glucose (UA) (Negative) Urine Ketones (Negative) Urine Blood (Negative) Urine Nitrite (Negative) Urine Bilirubin (Negative) Urine Urobilinogen (Negative) Ur Leukocyte Esterase (Negative) SARS-CoV-2, RNA, NAAT NEGATIVE (NEGATIVE) Administered Medications Discontinued Medications Sodium Chloride (Nss 1000ml) 2,000 mls @ 999 mls/hr IV .Q2H1M ONE Stop: 11/16/22 15:34 Last Infusion: 11/16/22 16:05 Dose: 0 mls/hr Documented By: Admin: 11/16/22 13:43 Dose: 999 mls/hr Documented By: MALIK Piperacillin Sod/Tazobactam (Sod 4.5 gm/ Dextrose) 120 mls @ 200 mls/hr IV NOW ONE; Protocol Stop: 11/16/22 15:20 Last Infusion: 11/16/22 15:36 Dose: 0 mls/hr Documented By: Admin: 11/16/22 15:00 Dose: 200 mls/hr Documented By: MALIK Ioversol (Optiray 320 100ml) 89 ml IV ONCE ONE Stop: 11/16/22 14:58 Last Admin: 11/16/22 14:58 Dose: 89 ml Documented By: MICHEAL Ketorolac Tromethamine (Ketorolac Tromethamine 15 Mg/Ml Vial) 10 mg IV NOW ONE Stop: 11/16/22 17:12 Last Admin: 11/16/22 17:14 Dose: 10 mg Documented By: MALIK Morphine Sulfate (Morphine Sulfate 10 Mg/Ml Carp/Vial) 6 mg IV NOW STA Stop: 11/16/22 13:35 Last Admin: 11/16/22 13:43 Dose: 6 mg Documented By: AMLIK Morphine Sulfate (Morphine Sulfate 10 Mg/Ml Carp/Vial) 6 mg IV NOW STA Stop: 11/16/22 15:37 Last Admin: 11/16/22 15:39 Dose: 6 mg Documented By: MALIK Ondansetron HCl (Ondansetron Inj 2 Mg/Ml 2 Ml Vial) 4 mg IV NOW STA Stop: 11/16/22 13:35 Last Admin: 11/16/22 13:43 Dose: 4 mg Documented By: MALIK Imaging Data Radiologist's Impression: Abdomen/Pelvis CT 11/16/22 14:[address] WITH IV CONTRAST CT DOSE: 331.60 mGy.cm HISTORY: Acute leukocytosis with epigastric abdominal pain wbc 30k pancreatitis TECHNIQUE: Multiaxial CT images of the abdomen and pelvis were performed following the IV administration of 89 cc of Optiray, A dose lowering technique was utilized adhering to the principles of ALARA. COMPARISON STUDY: CT abdomen and pelvis 10/19/2022, 02/22/2021. FINDINGS: Mild subsegmental right basilar atelectasis. No pneumatosis or pneumoperitoneum. The imaged inferior cardiac chambers are unremarkable. The spleen, and adrenal glands are unremarkable. Cholecystectomy. Mild interstitial and peripancreatic inflammation is most pronounced in the pancreatic head and uncinate process. Small amount of free fluid within the lesser sac extends into the mid mesentery. There is homogeneous enhancement of the pancreas. No pancreatic ductal dilation, or discrete mass identified. The previously noted 1.5 cm hypodense focus in the pancreatic head is no longer present. No biliary ductal dilation or choledocholithiasis identified. Interval development of a peripherally enhancing gastrohepatic fluid collection on image 100 series 3 measuring 4.1 x 2.5 x 3.9 cm. Mild hepatomegaly with hepatic steatosis. Patency of the hepatic and portal veins. The splenic and superior mesenteric veins are patent. Aorta and IVC are unremarkable. Trace free fluid within the pelvis. Mildly enlarged portacaval lymph node measures up to 1.3 cm in short axis, likely reactive. Unremarkable kidneys. Subcentimeter hypodensity of the left kidney is too small to characterize however likely represents a cyst. There is no hydronephrosis. Mild urinary bladder wall thickening with partial distention. The prostate is upper limits of normal in size. There is progressively worsened moderate wall thickening of the mid to distal stomach, first and second segments of the duod enum. No bowel obstruction. There is additional mild to moderate circumferential wall thickening involving the hepatic flexure, distal descending and transverse colon. Small volume ascites is most pronounced in the right abdomen. Scattered lower abdomen and pelvis air-fluid levels are likely reactive. Appendectomy. No acute fracture. IMPRESSION: 1. Mild to moderate interstitial edematous pancreatitis. 2. Interval development of a peripherally enhancing gastrohepatic fluid collection measuring up to proximally 4 cm, new from 10/19/2022 suggestive of a probable pseudocyst. 3. Progressive wall thickening of the distal stomach and duodenum with similar appearance of the ascending and transverse colon wall thickening. Findings are likely reactive. A primary gastroenteritis considered less likely. 4. Cholecystectomy and appendectomy. 5. Hepatomegaly with hepatic steatosis. ACT 112: Negative or not required by law. The above report was generated using voice recognition software. It may contain grammatical, syntax or spelling errors. Electronically signed by: Frank Peña M.D. 11/16/2022 3:50 PM Discharge Plan Visit Data Chief Complaint: Abdominal Pain Stated Complaint: VOMITING, RIGHT LOWER ABD PAIN ED Provider: Luis Post Discharge Problem: Acute pancreatitis, Intractable nausea and vomiting, Abdominal pain, Leukocytosis Discharge Instructions Interventions: ED Discharge Assessment Last Done: 11/16/22 17:22 Prescriptions Prescriptions: No Action pindolol 10 mg tablet 10 mg PO BID Rx Instructions: TOTAL DOSE 15 MG--TAKES WITH 5 MG TAB. famotidine 40 mg tablet 40 mg PO BID ondansetron 8 mg tablet,disintegrating 8 mg PO TID PRN (Reason: Nausea) cyclobenzaprine 5 mg tablet 5 mg PO TID PRN (Reason: Muscle Spasm) chlorthalidone 25 mg tablet 12.5 mg PO QAM pantoprazole 40 mg tablet,delayed release (DR/EC) 40 mg PO BID montelukast 10 mg tablet 10 mg PO DAILY potassium chloride 10 mEq capsule, extended release 20 meq PO BID naltrexone 50 mg Tablet 50 mg PO DAILY Rx Instructions: LAST FILLED 09/16/22 FOR 30 DAYS. hydroxyzine HCl 25 mg Tablet 25 mg PO TID PRN (Reason: ALCOHOL CRAVINGS) magnesium oxide 400 mg magnesium Tablet 400 mg PO HS cetirizine 10 mg Tablet 10 mg PO DAILY fluticasone propionate 50 mcg/actuation [place],Suspension 2 spray INTRANASAL DAILY PRN (Reason: Allergy Symptoms) Rx Instructions: administer into each nostril acetaminophen [Tylenol Extra Strength] 500 mg Tablet 1,000 mg PO DIRECTED PRN (Reason: PAIN/FEVER) diphenhydramine HCl [Benadryl] 25 mg Capsule 50 mg PO DIRECTED PRN (Reason: Allergic Reaction) clotrimazole-betamethasone 1-0.05 % cream 1 applic TOPICAL BID PRN (Reason: Skin Irritation) Excedrin Migraine 250-250-65 mg Tablet 1 tab PO DIRECTED PRN (Reason: Headache) pindolol 5 mg tablet 5 mg PO BID Rx Instructions: TOTAL DOSE 15 MG--TAKES WITH 10 MG TAB. buspirone 15 mg tablet 15 - 30 mg PO HS PRN (Reason: Insomnia) epinephrine 0.3 mg/0.3 mL auto-injector 0.3 mg IM DIRECTED PRN (Reason: anaphylaxis)
[2022-11-16] MEDS ORDERED: ONDANSETRON INJ 2 MG/ML 2 ML VIAL IV STA (13:34)
[2022-11-16] MEDS ORDERED: SODIUM CHLORIDE 0.9% 1000ML 2,000 ML IV ONE (13:34)
[2022-11-16] MEDS ORDERED: MoRPHine SULFATE 10 MG/ML CARP/VIAL IV STA ×2 (13:34→15:36)
[2022-11-16 14:21] LABS: Albumin Globulin Ratio 0.9 (0.9-2); Albumin Level 4.4 gm/dl (3.4-5.0); BUN Creatinine Ratio 17.2 (10-20); Bilirubin,Total 0.7 mg/dl (0.2-1.0); Calcium 10.3 mg/dl (8.6-10.3); Creatinine Clr Calc Pharmacy 110.9 ml/min; Est GFR (Non-African American) 125.1 ml/min; Globulin 4.8 gm/dl (2.5-4.0); Potassium 4.7 mmol/L (3.5-5.1); Total Protein 9.2 gm/dl (6.0-8.3)
[2022-11-16] MEDS ORDERED: PIPERACILLIN/TAZOBACTAM 4.5 GM in DEXTROSE 5% 100 ML IV ONE (14:45)
[2022-11-16 14:49] LABS: Hematocrit (blood only) 45.2 % (42.0-52.0); Hemoglobin 15.2 g/dl (14.0-18.0); Mean Corpuscular Hemoglobin 32.1 pg (25.0-34.0); Mean Corpuscular Hgb Conc 33.6 g/dL (32.0-36.0); Mean Corpuscular Volume 95.4 fL (80.0-100.0); Mean Platelet Volume 9.6 fL (9.4-12.4); Platelet Count 800 K/uL (130-400); RDW Coefficient of Variation 15.7 % (11.5-14.5); RDW Standard Deviation 55.1 fL (36.4-46.3); Red Blood Count 4.74 M/uL (4.70-6.10); White Blood Count 37.81 K/ul (4.8-10.8)
[2022-11-16 14:50] LABS: Basophils # (auto) 0.11 K/uL (0-0.2); Basophils % (auto) 0.3 %; Eosinophils # (auto) 0.02 K/uL (0-0.50); Eosinophils % (auto) 0.1 %; Immature Granulocytes # (auto) 0.67 K/uL (0.01-0.20); Immature Granulocytes % (auto) 1.8 %; Lymphocytes # (auto) 1.91 K/uL (1.2-3.4); Lymphocytes % (auto) 5.1 %; Monocytes # (auto) 1.42 K/uL (0.11-0.59); Monocytes % (auto) 3.8 %; Neutrophils # (auto) 33.68 K/uL (1.40-6.50); Neutrophils % (auto) 88.9 %; Toxic Vacuolation 1+
[2022-11-16] MEDS ORDERED: OPTIRAY 320 100ml IV ONE (14:57)
--- NOTE | 2022-11-16 15:51 | CT Scan Report ---
ABDOMEN AND PELVIS CT WITH IV CONTRAST CT DOSE: 331.60 mGy.cm HISTORY: Acute leukocytosis with epigastric abdominal pain wbc 30k pancreatitis TECHNIQUE: Multiaxial CT images of the abdomen and pelvis were performed following the IV administrat ion of 89 cc of Optiray, A dose lowering technique was utilized adhering to the principles of ALARA. COMPARISON STUDY: CT abdomen and pelvis 10/19/2022, 02/22/2021. FINDINGS: Mild subsegmental right basilar atelectasis. No pneumatosis or pneumoperitoneum. The imaged inferior cardiac chambers are unremarkable. The spleen, and adrenal glands are unremarkable. Cholecy stectomy. Mild interstitial and peripancreatic inflammation is most pronounced in the pancreatic head and uncin ate process. Small amount of free fluid within the lesser sac extends into the mid mesentery. There i s homogeneous enhancement of the pancreas. No pancreatic ductal dilation, or discrete mass identified . The previously noted 1.5 cm hypodense focus in the pancreatic head is no longer present. No biliary ductal dilation or choledocholithiasis identified. Interval development of a peripherally enhancing gastrohepatic fluid collection on image 100 series 3 measuring 4.1 x 2.5 x 3.9 cm. Mild hepatomegaly with hepatic steatosis. Patency of the hepatic and portal veins. The splenic and superior mesenteric veins are patent. Aorta and IVC are unremarkable. Trace free fluid within the pelvis. Mildly enlarged portacaval lymph node measures up to 1.3 cm in short axis, likely reactive. Unremarkable kidneys. Subcentimeter hypodensity of the left kidney is too small to characterize howev er likely represents a cyst. There is no hydronephrosis. Mild urinary bladder wall thickening with pa rtial distention. The prostate is upper limits of normal in size. There is progressively worsened mod erate wall thickening of the mid to distal stomach, first and second segments of the duodenum. No bow el obstruction. There is additional mild to moderate circumferential wall thickening involving the he patic flexure, distal descending and transverse colon. Small volume ascites is most pronounced in the right abdomen. Scattered lower abdomen and pelvis air-fluid levels are likely reactive. Appendectomy . No acute fracture. IMPRESSION: 1. Mild to moderate interstitial edematous pancreatitis. 2. Interval development of a peripherally enhancing gastrohepatic fluid collection measuring up to pr oximally 4 cm, new from 10/19/2022 suggestive of a probable pseudocyst. 3. Progressive wall thickening of the distal stomach and duodenum with similar appearance of the asce nding and transverse colon wall thickening. Findings are likely reactive. A primary gastroenteritis c onsidered less likely. 4. Cholecystectomy and appendectomy. 5. Hepatomegaly with hepatic steatosis. ACT 112: Negative or not required by law. The above report was generated using voice recognition software. It may contain grammatical, syntax o r spelling errors. Electronically signed by: Frank Peña M.D. 11/16/2022 3:50 PM
--- NOTE | 2022-11-16 16:26 | History & Physical Report ---
Date of Service November 16, 2022 Assessment & Plan (1) Acute pancreatitis: Plan: 36 y/o male with a prior hx of EtOH induced pancreatitis, EtOH hepatitis, HTN, and GERD presented to the ED today with acute onset of epigastric/RUQ pain with associated N/V after admission for EtOH pancreatitis a month ago but never returned to his baseline. Suspect pt may have acute on chronic pancreatitis +/- pseudocyst based on imaging today. is adamant that pt has not consumed EtOH since he was last admitted. - Admit to PCU - Strict NPO for now - IVF with potassium since baseline oral potassium being held - Daily labs for now - marked leukocytosis and thrombocytosis in ED today, suspect component of hemoconcentration as well - Consult GI for additional recommendations - scheduled for outpatient f/u in January (?EUS) - Pain control with Diluadid - Continue BID PPI and H2 angelika IV (2) Leukocytosis: (3) Alcohol abuse: Plan: Although pt/ deny current EtOH use, will order prn Ativan protocol in case pt develops s/s of withdrawal - IV thiamine and folic acid daily (4) GERD (gastroesophageal reflux disease): (5) HTN (hypertension): Plan Holding most home meds since pt NPO - will reassess in AM Pt seen and reviewed with collaborating physician, Dr. Newsome. Plan of care discussed and as outlined above. Code Status: Full Code DVT Prophylaxis: Kirk Chiu PA-C History of Present Illness Chief Complaint: Abdominal pain Primary Care Provider: Dheeraj Tee MD This is a 36 y/o male with a hx of pancreatitis, EtOH abuse, EtOH hepatitis, GERD, HTN, tobacco abuse, and migraine who presented to the ED today with abdominal pain, N/V. Pt was admitted 10/19-10/23/22 with alcoholic pancreatis but signed out AMA once symptoms improving. History is obtained from both patient and his at the bedside. Since leaving the hospital, he doesn't feel like he ever got back to baseline. Ongoing loss of appetite, occasional abd discomfort and nausea. However, this morning, he had acute worsening of the epigastric to RUQ pain radiating to his back. Associated nausea and vomiting so they returned to the ED for evaluation. No documented fevers at home but has had chills and sweats, fatigue, generalized weakness. Denies any EtOH since leaving the hospital - per , she removed all the alcohol from the house. He is having ongoing issues with heartburn and regurgitation, even with the pantoprazole and recently added famotidine BID from PCP office. No chest pain, palpitations, SOB, syncope. Allergies Allergy/AdvReac Type Severity Reaction Status Date / Time erythromycin base AdvReac Severe seizure Verified 11/16/22 15:34 Home Medications Medication Instructions Recorded Confirmed Type famotidine 40 mg tablet 40 mg PO BID 02/22/21 11/16/22 History ondansetron 8 mg disintegrating 8 mg PO TID PRN Nausea 02/22/21 11/16/22 History tablet pindolol 10 mg tablet 10 mg PO BID 02/22/21 11/16/22 History chlorthalidone 25 mg tablet 12.5 mg PO QAM 10/19/21 11/16/22 History cyclobenzaprine 5 mg tablet 5 mg PO TID PRN Muscle Spasm 10/19/21 11/16/22 History montelukast 10 mg tablet 10 mg PO DAILY 10/19/21 11/16/22 History pantoprazole 40 mg tablet,delayed 40 mg PO BID 10/19/21 11/16/22 History release potassium chloride 10 mEq 20 meq PO BID 10/19/21 11/16/22 History capsule,extended release cetirizine 10 mg tablet 10 mg PO DAILY 10/19/22 11/16/22 History fluticasone propionate 50 2 spray intranasal DAILY PRN 10/19/22 11/16/22 History mcg/actuation nasal Allergy Symptoms spray,suspension hydroxyzine HCl 25 mg tablet 25 mg PO TID PRN ALCOHOL CRAVINGS 10/19/22 11/16/22 History magnesium oxide 400 mg PO HS 10/19/22 11/16/22 History naltrexone 50 mg tablet 50 mg PO DAILY 10/19/22 11/16/22 History acetaminophen 500 mg tablet 1,000 mg PO DIRECTED PRN 11/16/22 11/16/22 History (Tylenol Extra Strength) PAIN/FEVER puoaocr-[id number]-hfpbfber 250 1 tab PO DIRECTED PRN Headache 11/16/22 11/16/22 History mg-250 mg-65 mg tablet (Excedrin Migraine) buspirone 15 mg tablet 15 - 30 mg PO HS PRN Insomnia 11/16/22 11/16/22 History clotrimazole-betamethasone 1 1 applic topical BID PRN Skin 11/16/22 11/16/22 History %-0.05 % topical cream Irritation diphenhydramine HCl 25 mg capsule 50 mg PO DIRECTED PRN Allergic 11/16/22 11/16/22 History (Benadryl) Reaction epinephrine 0.3 mg/0.3 mL 0.3 mg IM DIRECTED PRN 11/16/22 11/16/22 History injection, auto-injector anaphylaxis pindolol 5 mg tablet 5 mg PO BID 11/16/22 11/16/22 History Past Med/Surg History Medical History Alcohol abuse GERD (gastroesophageal reflux disease) HTN (hypertension) Migraine Tobacco abuse Surgical History History of colonoscopy History of esophagogastroduodenoscopy (EGD) History of umbilical hernia repair 06/2020 Hx of appendectomy S/P cholecystectomy 06/2020 Family History Brother Hypertension Grandfather (Paternal) Parkinson disease Social History Smoking Status: Current every day smoker Tobacco Type: Cigarettes packs per day: 1.5; Cigarettes Per Day: 21; Second Hand Exposure: Yes; Do You Dip or Chew Tobacco: No; Tobacco Cessation Education Requested by Patient: Yes Hx Alcohol Use: Yes Alcohol type: hard liquor Alcohol type Comment: vodka Alcohol Intake Frequency Comment: night; 2-3 drinks with 3-6 shots of vodka total Hx Substance Use: No Preferred Language: P[place] 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 Beliefs That Will Affect Care: None marital status: Current Living Situation: Family Current Living Situation Comment: and kids current occupational status: employed Other Information That Helps Us Care for You: No Feels Safe at Home: Yes Safety Concerns: Feels Safe At This Time Assistive Devices: None Review of Systems Review of Systems: All systems reviewed & are unremarkable except as noted in HPI & below (limited responses from patient due to being in pain) Constitutional: + chills, + sweats, + fatigue and + anorexia; no fever Ear, Nose, Mouth, Throat: no nasal congestion and no sore throat Respiratory: no cough and no dyspnea Cardiovascular: + edema (intermittent issues the last few weeks); no chest pain, no palpitations and no syncope Gastrointestinal: as per Subjective / HPI Genitourinary: + problem reported (dark urine); no dysuria or no hematuria Integumentary: no yellowing of the skin Neurologic: no seizure-like activity and no confusion Physical Exam Constitutional: + ill appearing and + thin Eyes: + anicteric sclerae Neck: trachea midline Respiratory: no respiratory distress and no labored breathing Auscultation: + diminished lung sounds Cardiovascular: Rate/Rhythm: regular rhythm and + tachycardic Vessels: radial pulses present Extremities: no pedal edema Gastrointestinal (Abdomen): Inspection/Auscultation: + hypoactive bowel sounds Percussion/Palpation: + abdomen tender (diffusely but worse in epigastric and RUQ), + guarding (voluntary guarding) and abdomen soft Musculoskeletal: Head/Neck/Chest: normocephalic, head atraumatic and neck supple Skin: no jaundice Neurologic: moves all extremities; no focal motor deficits Results & Data Results & Data Vital Signs (Past 12 Hours) Vital Signs Temp Pulse Pulse Resp BP BP Pulse Ox 11/16/22 15:42 108 H 16 124/87 99 11/16/22 15:01 104 H 18 128/99 98 11/16/22 14:33 102 H 18 126/83 98 11/16/22 13:44 97 H 18 141/101 H 99 11/16/22 13:42 98 H 11/16/22 12:34 36.5 C 98 H 16 129/88 99 O2 Del Method 11/16/22 15:42 Room Air 11/16/22 15:01 Room Air 11/16/22 14:33 Room Air 11/16/22 13:44 Room Air 11/16/22 13:42 11/16/22 12:34 Room Air Laboratory Results Laboratory Results - last 24 hr 11/16/22 11/16/22 11/16/22 12:50 13:36 13:36 WBC 37.81 H* RBC 4.74 Hgb 15.2 Hct 45.2 MCV 95.4 MCH 32.1 MCHC 33.6 RDW Std Deviation 55.1 H RDW Coeff of Jeremie 15.7 H Plt Count 800 H MPV 9.6 Immature Gran % (Auto) 1.8 Neut % (Auto) 88.9 Lymph % (Auto) 5.1 [place] % (Auto) 3.8 Eos % (Auto) 0.1 Baso % (Auto) 0.3 Neut # (Auto) 33.68 H Lymph # (Auto) 1.91 [place] # (Auto) 1.42 H Eos # (Auto) 0.02 Baso # (Auto) 0.11 Immature Gran # (Auto) 0.67 H Toxic Vacuolation 1+ Sodium 134 L Potassium 4.7 Chloride 97 L Carbon Dioxide 28 Anion Gap 9 BUN 11 Creatinine 0.64 Est Cr Clr Drug Dosing 110.9 Est GFR ( Amer) 145.0 Est GFR (Non-Af Amer) 125.1 BUN/Creatinine Ratio 17.2 Glucose 110 H Calcium 10.3 Total Bilirubin 0.7 AST 34 ALT 39 Alkaline Phosphatase 217 H Total Protein 9.2 H Albumin 4.4 Globulin 4.8 H Albumin/Globulin Ratio 0.9 Lipase 437 H Urine Color Dark Yellow Urine Appearance Clear Urine pH >= 9.0 H Ur Specific [place] 1.025 Urine Protein Negative Urine Glucose (UA) Negative Urine Ketones Negative Urine Blood Negative Urine Nitrite Negative Urine Bilirubin Negative Urine Urobilinogen Negative Ur Leukocyte Esterase Negative SARS-CoV-2, RNA, NAAT 11/16/22 14:49 WBC RBC Hgb Hct MCV MCH MCHC RDW Std Deviation RDW Coeff of Jeremie Plt Count MPV Immature Gran % (Auto) Neut % (Auto) Lymph % (Auto) [place] % (Auto) Eos % (Auto) Baso % (Auto) Neut # (Auto) Lymph # (Auto) [place] # (Auto) Eos # (Auto) Baso # (Auto) Immature Gran # (Auto) Toxic Vacuolation Sodium Potassium Chloride Carbon Dioxide Anion Gap BUN Creatinine Est Cr Clr Drug Dosing Est GFR ( Amer) Est GFR (Non-Af Amer) BUN/Creatinine Ratio Glucose Calcium Total Bilirubin AST ALT Alkaline Phosphatase Total Protein Albumin Globulin Albumin/Globulin Ratio Lipase Urine Color Urine Appearance Urine pH Ur Specific [place] Urine Protein Urine Glucose (UA) Urine Ketones Urine Blood Urine Nitrite Urine Bilirubin Urine Urobilinogen Ur Leukocyte Esterase SARS-CoV-2, RNA, NAAT NEGATIVE Diagnostic Findings Abdomen/Pelvis CT 11/16/22 14:[address] WITH IV CONTRAST CT DOSE: 331.60 mGy.cm HISTORY: Acute leukocytosis with epigastric abdominal pain wbc 30k pancreatitis TECHNIQUE: Multiaxial CT images of the abdomen and pelvis were performed following the IV administration of 89 cc of Optiray, A dose lowering technique was utilized adhering to the principles of ALARA. COMPARISON STUDY: CT abdomen and pelvis 10/19/2022, 02/22/2021. FINDINGS: Mild subsegmental right basilar atelectasis. No pneumatosis or pneumoperitoneum. The imaged inferior cardiac chambers are unremarkable. The spleen, and adrenal glands are unremarkable. Cholecystectomy. Mild interstitial and peripancreatic inflammation is most pronounced in the pancreatic head and uncinate process. Small amount of free fluid within the lesser sac extends into the mid mesentery. There is homogeneous enhancement of the pancreas. No pancreatic ductal dilation, or discrete mass identified. The previously noted 1.5 cm hypodense focus in the pancreatic head is no longer present. No biliary ductal dilation or choledocholithiasis identified. Interval development of a peripherally enhancing gastrohepatic fluid collection on image 100 series 3 measuring 4.1 x 2.5 x 3.9 cm. Mild hepatomegaly with hepatic steatosis. Patency of the hepatic and portal veins. The splenic and superior mesenteric veins are patent. Aorta and IVC are unremarkable. Trace free fluid within the pelvis. Mildly enlarged portacaval lymph node measures up to 1.3 cm in short axis, likely reactive. Unremarkable kidneys. Subcentimeter hypodensity of the left kidney is too small to characterize however likely represents a cyst. There is no hydronephrosis. Mild urinary bladder wall thickening with partial distention. The prostate is upper limits of normal in size. There is progressively worsened moderate wall thickening of the mid to distal stomach, first and second segments of the duodenum. No bowel obstruction. There is additional mild to moderate circumferential wall thickening involving the hepatic flexure, distal descending and transverse colon. Small volume ascites is most pronounced in the right abdomen. Scattered lower abdomen and pelvis air-fluid levels are likely reactive. Appendectomy. No acute fracture. IMPRESSION: 1. Mild to moderate interstitial edematous pancreatitis. 2. Interval development of a peripherally enhancing gastrohepatic fluid collection measuring up to proximally 4 cm, new from 10/19/2022 suggestive of a probable pseudocyst. 3. Progressive wall thickening of the distal stomach and duodenum with similar appearance of the ascending and transverse colon wall thickening. Findings are likely reactive. A primary gastroenteritis considered less likely. 4. Cholecystectomy and appendectomy. 5. Hepatomegaly with hepatic steatosis. Medications Administered Discontinued Medications Sodium Chloride (Nss 1000ml) 2,000 mls @ 999 mls/hr IV .Q2H1M ONE Stop: 11/16/22 15:34 Last Infusion: 11/16/22 16:05 Dose: 0 mls/hr Documented By: Admin: 11/16/22 13:43 Dose: 999 mls/hr Documented By: MALIK Piperacillin Sod/Tazobactam (Sod 4.5 gm/ Dextrose) 120 mls @ 200 mls/hr IV NOW ONE; Protocol Stop: 11/16/22 15:20 Last Infusion: 11/16/22 15:36 Dose: 0 mls/hr Documented By: Admin: 11/16/22 15:00 Dose: 200 mls/hr Documented By: MALIK Ioversol (Optiray 320 100ml) 89 ml IV ONCE ONE Stop: 11/16/22 14:58 Last Admin: 11/16/22 14:58 Dose: 89 ml Documented By: MICHEAL Morphine Sulfate (Morphine Sulfate 10 Mg/Ml Carp/Vial) 6 mg IV NOW STA Stop: 11/16/22 13:35 Last Admin: 11/16/22 13:43 Dose: 6 mg Documented By: MALIK Morphine Sulfate (Morphine Sulfate 10 Mg/Ml Carp/Vial) 6 mg IV NOW STA Stop: 11/16/22 15:37 Last Admin: 11/16/22 15:39 Dose: 6 mg Documented By: MALIK Ondansetron HCl (Ondansetron Inj 2 Mg/Ml 2 Ml Vial) 4 mg IV NOW STA Stop: 11/16/22 13:35 Last Admin: 11/16/22 13:43 Dose: 4 mg Documented By: MALIK Supervising Physician Co-Signing Physician Notes 36 year old male with e/o pancreatitis and pseudocyst. Neuro: AAOx3, PERRLA. HEENT: head normocephalic. CV: S1/S2, no murmurs Resp: Air entry + no crackles GI: Abdomen tender Musculoskeletal: joint pain + Skin: (-) rashes , (-) erythema. Psych: normal affect Laboratory Results WBC 37.81 K/ul (4.8-10.8) H* 11/16/22 13:36 RBC 4.74 M/uL (4.70-6.10) 11/16/22 13:36 Hgb 15.2 g/dl (14.0-18.0) 11/16/22 13:36 Hct 45.2 % (42.0-52.0) 11/16/22 13:36 MCV 95.4 fL (80.0-100.0) 11/16/22 13:36 MCH 32.1 pg (25.0-34.0) 11/16/22 13:36 MCHC 33.6 g/dL (32.0-36.0) 11/16/22 13:36 RDW Std Deviation 55.1 fL (36.4-46.3) H 11/16/22 13:36 RDW Coeff of Jeremie 15.7 % (11.5-14.5) H 11/16/22 13:36 Plt Count 800 K/uL (130-400) H 11/16/22 13:36 MPV 9.6 fL (9.4-12.4) 11/16/22 13:36 Immature Gran % (Auto) 1.8 % 11/16/22 13:36 Neut % (Auto) 88.9 % 11/16/22 13:36 Lymph % (Auto) 5.1 % 11/16/22 13:36 [place] % (Auto) 3.8 % 11/16/22 13:36 Eos % (Auto) 0.1 % 11/16/22 13:36 Baso % (Auto) 0.3 % 11/16/22 13:36 Neut # (Auto) 33.68 K/uL (1.40-6.50) H 11/16/22 13:36 Lymph # (Auto) 1.91 K/uL (1.2-3.4) 11/16/22 13:36 [place] # (Auto) 1.42 K/uL (0.11-0.59) H 11/16/22 13:36 Eos # (Auto) 0.02 K/uL (0-0.50) 11/16/22 13:36 Baso # (Auto) 0.11 K/uL (0-0.2) 11/16/22 13:36 Immature Gran # (Auto) 0.67 K/uL (0.01-0.20) H 11/16/22 13:36 Toxic Vacuolation 1+ 11/16/22 13:36 Sodium 134 mmol/L (136-145) L 11/16/22 13:36 Potassium 4.7 mmol/L (3.5-5.1) 11/16/22 13:36 Chloride 97 mmol/L (98-107) L 11/16/22 13:36 Carbon Dioxide 28 mmol/L (21-32) 11/16/22 13:36 Anion Gap 9 (3-11) 11/16/22 13:36 BUN 11 mg/dl (6-23) 11/16/22 13:36 Creatinine 0.64 mg/dl (0.6-1.4) 11/16/22 13:36 Est Cr Clr Drug Dosing 110.9 ml/min 11/16/22 13:36 Est GFR ( Amer) 145.0 ml/min 11/16/22 13:36 Est GFR (Non-Af Amer) 125.1 ml/min 11/16/22 13:36 BUN/Creatinine Ratio 17.2 (10-20) 11/16/22 13:36 Glucose 110 mg/dl (70-99(Fasting)) H 11/16/22 13:36 Calcium 10.3 mg/dl (8.6-10.3) 11/16/22 13:36 Total Bilirubin 0.7 mg/dl (0.2-1.0) 11/16/22 13:36 AST 34 U/L (13-39) 11/16/22 13:36 ALT 39 U/L (7-52) 11/16/22 13:36 Alkaline Phosphatase 217 U/L (34-104) H 11/16/22 13:36 Total Protein 9.2 gm/dl (6.0-8.3) H 11/16/22 13:36 Albumin 4.4 gm/dl (3.4-5.0) 11/16/22 13:36 Globulin 4.8 gm/dl (2.5-4.0) H 11/16/22 13:36 Albumin/Globulin Ratio 0.9 (0.9-2) 11/16/22 13:36 Lipase 437 U/L (11-82) H 11/16/22 13:36 Urine Color Dark Yellow 11/16/22 12:50 Urine Appearance Clear (Clear) 11/16/22 12:50 Urine pH >= 9.0 (4.5-7.5) H 11/16/22 12:50 Ur Specific [place] 1.025 (1.000-1.030) 11/16/22 12:50 Urine Protein Negative (Negative) 11/16/22 12:50 Urine Glucose (UA) Negative (Negative) 11/16/22 12:50 Urine Ketones Negative (Negative) 11/16/22 12:50 Urine Blood Negative (Negative) 11/16/22 12:50 Urine Nitrite Negative (Negative) 11/16/22 12:50 Urine Bilirubin Negative (Negative) 11/16/22 12:50 Urine Urobilinogen Negative (Negative) 11/16/22 12:50 Ur Leukocyte Esterase Negative (Negative) 11/16/22 12:50 SARS-CoV-2, RNA, NAAT NEGATIVE (NEGATIVE) 11/16/22 14:49 Impressions Abdomen/Pelvis CT 11/16/22 14:[address] WITH IV CONTRAST CT DOSE: 331.60 mGy.cm HISTORY: Acute leukocytosis with epigastric abdominal pain wbc 30k pancreatitis TECHNIQUE: Multiaxial CT images of the abdomen and pelvis were performed following the IV administration of 89 cc of Optiray, A dose lowering technique was utilized adhering to the principles of ALARA. COMPARISON STUDY: CT abdomen and pelvis 10/19/2022, 02/22/2021. FINDINGS: Mild subsegmental right basilar atelectasis. No pneumatosis or pneumoperitoneum. The imaged inferior cardiac chambers are unremarkable. The spleen, and adrenal glands are unremarkable. Cholecystectomy. Mild interstitial and peripancreatic inflammation is most pronounced in the pancreatic head and uncinate process. Small amount of free fluid within the lesser sac extends into the mid mesentery. There is homogeneous enhancement of the pancreas. No pancreatic ductal dilation, or discrete mass identified. The previously noted 1.5 cm hypodense focus in the pancreatic head is no longer present. No biliary ductal dilation or choledocholithiasis identified. Interval development of a peripherally enhancing gastrohepatic fluid collection on image 100 series 3 measuring 4.1 x 2.5 x 3.9 cm. Mild hepatomegaly with hepatic steatosis. Patency of the hepatic and portal veins. The splenic and superior mesenteric veins are patent. Aorta and IVC are unremarkable. Trace free fluid within the pelvis. Mildly enlarged portacaval lymph node measures up to 1.3 cm in short axis, likely reactive. Unremarkable kidneys. Subcentimeter hypodensity of the left kidney is too small to characterize however likely represents a cyst. There is no hydronephrosis. Mild urinary bladder wall thickening with partial distention. The prostate is upper limits of normal in size. There is progressively worsened moderate wall thickening of the mid to distal stomach, first and second segments of the duodenum. No bowel obstruction. There is additional mild to moderate circumferential wall thickening involving the hepatic flexure, distal descending and transverse colon. Small volume ascites is most pronounced in the right abdomen. Scattered lower abdomen and pelvis air-fluid levels are likely reactive. Appendectomy. No acute fracture. IMPRESSION: 1. Mild to moderate interstitial edematous pancreatitis. 2. Interval development of a peripherally enhancing gastrohepatic fluid co llection measuring up to proximally 4 cm, new from 10/19/2022 suggestive of a probable pseudocyst. 3. Progressive wall thickening of the distal stomach and duodenum with similar appearance of the ascending and transverse colon wall thickening. Findings are likely reactive. A primary gastroenteritis considered less likely. 4. Cholecystectomy and appendectomy. 5. Hepatomegaly with hepatic steatosis. ACT 112: Negative or not required by law. The above report was generated using voice recognition software. It may contain grammatical, syntax or spelling errors. Electronically signed by: Frank Peña M.D. 11/16/2022 3:50 PM
[2022-11-16] MEDS ORDERED: KETOROLAC TROMETHAMINE 15 MG/ML VIAL IV ONE (17:11)
[2022-11-16] MEDS ORDERED: ONDANSETRON INJ 2 MG/ML 2 ML VIAL IV PRN (18:29)
[2022-11-16] MEDS ORDERED: Ativan IV Alcohol Withdrawal--Active Protocol IV PRN (18:34)
[2022-11-16] MEDS ORDERED: LORazepam 2 MG/1 ML VIAL IV PRN ×3 (18:34)
[2022-11-16] MEDS: NSS + 20MEQ KCL 20 MEQ/1,000 ML BAG IV SCH (20:01)
[2022-11-16] MEDS: HYDROmorphone INJ 0.5 MG/0.5 ML SYR IV PRN (20:01)
[2022-11-16] MEDS: PANTOprazole 40 MG in SYRINGE 0 ML IV SCH (20:02)
[2022-11-16] MEDS: THIAMINE HCL 100 MG in SYRINGE 9 ML IV SCH (20:02)
[2022-11-16] MEDS: FOLIC ACID 1 MG in SYRINGE 9.8 ML IV SCH (20:03)
[2022-11-16] MEDS: FAMOTIDINE 20 MG in SYRINGE 3 ML IV SCH (20:03)
[2022-11-16] MEDS: PIPERACILLIN/TAZOBACTAM 4.5 GM in DEXTROSE 5% 100 ML IV SCH (20:03)
[2022-11-17] MEDS: HYDROmorphone INJ 0.5 MG/0.5 ML SYR IV PRN ×4 (03:01→21:09)
[2022-11-17] MEDS: NSS + 20MEQ KCL 20 MEQ/1,000 ML BAG IV SCH ×3 (03:02→19:36)
[2022-11-17] MEDS: PIPERACILLIN/TAZOBACTAM 4.5 GM in DEXTROSE 5% 100 ML IV SCH ×2 (04:57→13:50)
[2022-11-17 05:19] LABS: Alanine Aminotransferase 23 U/L (7-52); Alkaline Phosphatase 145 U/L (34-104); Anion Gap 8 (3-11); Aspartate Aminotransferase 18 U/L (13-39); Bilirubin Direct 0.1 mg/dl (0-0.2); Bilirubin,Total 0.7 mg/dl (0.2-1.0); Blood Urea Nitrogen 9 mg/dl (6-23); Calcium 8.4 mg/dl (8.6-10.3); Carbon Dioxide 22 mmol/L (21-32); Chloride 102 mmol/L (98-107); Creatinine Clr Calc Pharmacy 141.9 ml/min; Est GFR (African American) > 150.0 ml/min; Est GFR (Non-African American) 138.4 ml/min; Glucose 103 mg/dl (70-99(Fasting)); Lipase 195 U/L (11-82); Phosphorus 3.2 mg/dl (2.5-4.9); Potassium 3.9 mmol/L (3.5-5.1); Sodium 132 mmol/L (136-145); Total Protein 6.2 gm/dl (6.0-8.3)
[2022-11-17 05:32] LABS: Hematocrit (blood only) 31.4 % (42.0-52.0); Hemoglobin 10.9 g/dl (14.0-18.0); Mean Corpuscular Hemoglobin 32.2 pg (25.0-34.0); Mean Corpuscular Hgb Conc 34.7 g/dL (32.0-36.0); Mean Corpuscular Volume 92.6 fL (80.0-100.0); Mean Platelet Volume 9.7 fL (9.4-12.4); Platelet Count 503 K/uL (130-400); RDW Standard Deviation 54.4 fL (36.4-46.3); Red Blood Count 3.39 M/uL (4.70-6.10)
[2022-11-17 05:36] LABS: Basophils # (auto) 0.05 K/uL (0-0.2); Basophils % (auto) 0.2 %; Eosinophils # (auto) 0.02 K/uL (0-0.50); Eosinophils % (auto) 0.1 %; Immature Granulocytes # (auto) 0.23 K/uL (0.01-0.20); Immature Granulocytes % (auto) 0.9 %; Lymphocytes # (auto) 2.41 K/uL (1.2-3.4); Lymphocytes % (auto) 9.1 %; Monocytes # (auto) 1.82 K/uL (0.11-0.59); Monocytes % (auto) 6.8 %; Neutrophils # (auto) 22.07 K/uL (1.40-6.50); Neutrophils % (auto) 82.9 %
[2022-11-17] MEDS: ENOXAPARIN INJ 40 MG/0.4 ML SYR SQ SCH (08:18)
[2022-11-17] MEDS: THIAMINE HCL 100 MG in SYRINGE 9 ML IV SCH (08:18)
[2022-11-17] MEDS: PANTOprazole 40 MG in SYRINGE 0 ML IV SCH ×2 (08:18→20:06)
[2022-11-17] MEDS: FOLIC ACID 1 MG in SYRINGE 9.8 ML IV SCH (08:18)
[2022-11-17] MEDS ORDERED: ACETAMINOPHEN 500 MG TAB PO PRN (08:32)
[2022-11-17] MEDS ORDERED: LORazepam 2 MG/1 ML VIAL IV PRN (08:36)
--- NOTE | 2022-11-17 08:36 | Hospitalist Progress Note ---
Date of Service November 17, 2022 Assessment & Plan (1) Acute pancreatitis: Plan: 36 y/o male with a prior hx of EtOH induced pancreatitis presents with recurrent pancreatitis. -IVF with bowel rest for the time being -GI saw patient and recommends PPI BID, clears with ADAT to low fat diet OP appt for EUS/EGD on 01/15 with continued alcohol cessation cont pain control efforts. (2) Leukocytosis: Plan: 2/2 above. Cont plan as outlined above. Trend CBC. (3) Alcohol abuse: Plan: IV thiamine and folate given. There is no withdrawal present at this time. Pt was praised for two months of sobriety. (4) HTN (hypertension): Plan: chronic, stable. Held chlorthalidone while being treated for acute pancreatitis. (5) Tobacco abuse: Plan: Nicoderm patch Full Code DVT proph-Lovenox Dispo-to home when abdominal pain improves and he is tolerating PO reliably. Meredith Capellan DO [facility] Hospitalist Admission and Anticipated Discharge Date Admission Date: November 16, 2022 Subjective 36-year-old man with previous history of alcoholism presents with suspected alcoholic pancreatitis. He reports stopping alcohol use 2 months ago. He states he woke up yesterday with pain along with vomiting. He has not vomited today and feels hungry. He denies any fevers or reports of chills yesterday. Overall today he is feeling better than yesterday. Review of Systems Review of Systems: All systems reviewed negative except as indicated above. Physical Exam Physical Exam: CONSTITUTIONAL: WNWD, vitals as above, NAD EYES: normal conjunctivae, no scleral icterus ENT: external ear and nose normal, NECK: trachea midline RESPIRATORY: clear to auscultation bilaterally, no crackles, rales or wheezes, normal respiratory effort CARDIOVASCULAR: regular rate and rhythm, S1 and 2 heard without murmurs, gallops or rubs, no JVD, no peripheral edema CHEST: inspection of chest was normal GASTROINTESTINAL: soft,TTP in RUQ/epigastric region with a fullness to palpation of the RUQ ND, no guarding MUSCULOSKELETAL: strength 5/5 throughout, head is normocephalic and atraumatic, SKIN: warm and dry NEUROLOGIC: CN 2-12 grossly intact, no sensory deficit, normal cognition, normal speech, no tremor PSYCHIATRIC: alert cooperative and oriented to person, place and time. Euthymic mood, makes good eye contact, language grossly intact, recent and remote memory grossly intact. Results & Data Results & Data Vital Signs (Past 12 Hours) Vital Signs Temp Pulse Pulse Resp BP Pulse Ox O2 Del Method 11/17/22 07:41 37.1 C 94 H 18 118/73 98 Room Air 11/17/22 03:15 36.9 C 101 H 17 117/77 95 Room Air 11/17/22 02:29 105 H 11/16/22 23:37 37.6 C H 104 H 18 101/59 L 96 Room Air 11/16/22 21:31 Room Air Laboratory Results Short CBC 11/16/22 11/17/22 Range/Units 13:36 04:22 WBC 37.81 H* 26.60 H (4.8-10.8) K/ul Hgb 15.2 10.9 L D (14.0-18.0) g/dl Hct 45.2 31.4 L (42.0-52.0) % Plt Count 800 H 503 H (130-400) K/uL BMP 11/16/22 11/17/22 13:36 04:22 Sodium 134 L 132 L Potassium 4.7 3.9 Chloride 97 L 102 Carbon Dioxide 28 22 BUN 11 9 Creatinine 0.64 0.50 L Glucose 110 H 103 H Calcium 10.3 8.4 L Liver Function 11/16/22 11/17/22 Range/Units 13:36 04:22 Total Bilirubin 0.7 0.7 (0.2-1.0) mg/dl Direct Bilirubin 0.1 (0-0.2) mg/dl AST 34 18 (13-39) U/L ALT 39 23 (7-52) U/L Alkaline Phosphatase 217 H 145 H (34-104) U/L Albumin 4.4 3.0 L (3.4-5.0) gm/dl Urine 11/16/22 Range/Units 12:50 Urine Color Dark Yellow Urine Appearance Clear (Clear) Urine pH >= 9.0 H (4.5-7.5) Ur Specific [place] 1.025 (1.000-1.030) Urine Protein Negative (Negative) Urine Glucose (UA) Negative (Negative) Medications Administered Current Inpatient Medications Acetaminophen (Acetaminophen 500 Mg Tab) 500 mg PO Q6H PRN PRN Reason: mild-mod pain or fever Stop: 12/17/22 08:31 Enoxaparin Sodium (Enoxaparin Inj 40 Mg/0.4 Ml Syr) 40 mg SQ QAM [facility] Stop: 12/17/22 08:59 Last Admin: 11/17/22 08:18 Dose: Not Given Hydromorphone HCl (Hydromorphone Inj 0.5 Mg/0.5 Ml Syr) 0.5 mg IV Q2H PRN PRN Reason: severe pain Stop: 11/30/22 18:38 Folic Acid 1 mg/ Syringe 10 mls @ 5 mls/min IV QAM [facility] Stop: 12/16/22 18:59 Last Admin: 11/17/22 08:18 Dose: 5 mls/min Thiamine HCl 100 mg/ Syringe 10 mls @ 2 mls/min IV QAM [facility] Stop: 12/16/22 18:44 Last Admin: 11/17/22 08:18 Dose: 2 mls/min Piperacillin Sod/Tazobactam (Sod 4.5 gm/ Dextrose) 120 mls @ 30 mls/hr IV Q8H [facility]; Protocol Stop: 11/26/22 20:59 Last Admin: 11/17/22 04:57 Dose: 30 mls/hr Potassium Chloride/Sodium Chloride (Normal Saline W/20 Meq Kcl) 20 meq in 1,000 mls @ 125 mls/hr IV .Q8H [facility] Stop: 12/16/22 18:59 Last Admin: 11/17/22 03:02 Dose: 125 mls/hr Pantoprazole Sodium 40 mg/ (Syringe) 10 mls @ 5 mls/min IV BID [facility] Stop: 12/16/22 20:59 Last Admin: 11/17/22 08:18 Dose: 5 mls/min Famotidine 20 mg/ Syringe 5 mls @ 2.5 mls/min IV BID [facility] Stop: 12/16/22 20:59 Last Admin: 11/16/22 20:03 Dose: 2.5 mls/min Lorazepam (Lorazepam 2 Mg/1 Ml Vial) 1 mg IV UD PRN; Protocol PRN Reason: EtOH Withdrawal AWSS Score 6+ Stop: 12/16/22 18:33 Ondansetron HCl (Ondansetron Inj 2 Mg/Ml 2 Ml Vial) 4 mg IV Q6H PRN PRN Reason: Nausea Stop: 12/16/22 18:28
[2022-11-17] MEDS: FAMOTIDINE 20 MG in SYRINGE 3 ML IV SCH (10:00)
--- NOTE | 2022-11-17 13:38 | Gastrointestinal Consultation ---
Date of Consultation November 17, 2022 Assessment & Plan (1) Alcoholic hepatitis: Pt is a 36 yo male w suspected ETOH pancreatitis, hx of ETOH hepatitis, w symptoms of abd pain, ongoing low appetite since last pancreatitis episode. He does have a newly developed 4cm pancreas pseudocyst on CT scan. LFTs normal, li pase mildly up. He is clinically improving. - PPI BID - CL diet, advance to low fat as tolerated - IVF support with LR - Defer drainage of pancreas pseudocyst as it likely hasn't matured. - Keep EGD/EUS appt on 01/15 - Continued ETOH cessation advised - Pls recall GI prn Supervising Physician Co-Signing Physician Notes Patient was seen and examined on 11/17 With BRISSA Wilson whose note reflects our findings and plan. History of Present Illness Reason for Consultation: Pancreas pseudocyst Requesting Physician: Dr. Meredith Capellan Attending Physician: Dr. Maricruz Ng History of Present Illness Pt is a 36 yo male w PMHx of suspected ETOH pancreatitis, ETOH hepatitis, HTN, GERD, tobacco abuse and migraines who presented to ED yesterday w c/o abd pain, n/v. He was admitted in October for ETOH pancreatitis, has upcoming EUS appt on 01/15. He sign out AMA during that time. Since then he's had ongoing abd discomfort, nausea, loss of appetite. He denies any bowel habit changes. Denies ETOH since "couple of months ago". Labs reviewed - WBC 26K, H/H 05/11/, Pls 503, Cr 0.5, LFTs: Tbili 0.5, AST 18, ALT 23, Alk phos 145, Lipase 195. CT abd/pelvis w contrast: 1. Mild to moderate interstitial edematous pancreatitis 2. Interval development of a peripherally enhancing gastrohepatic fluid collection measuring up to proximally 4 cm, new from 10/19/2022 suggestive of a probable pseudocyst. 3. Progressive wall thickening of the distal stomach and duodenum with similar appearance of the ascending and transverse colon wall thickening. Findings are likely reactive. A primary gastroenteritis considered less likely. 4. Cholecystectomy and appendectomy. 5. Hepatomegaly with hepatic steatosis. Allergies Allergy/AdvReac Type Severity Reaction Status Date / Time shellfish derived Allergy Verified 11/17/22 12:49 erythromycin base AdvReac Severe seizure Verified 11/16/22 15:34 Home Medications Medication Instructions Recorded Confirmed Type famotidine 40 mg tablet 40 mg PO BID 02/22/21 11/16/22 History ondansetron 8 mg disintegrating 8 mg PO TID PRN Nausea 02/22/21 11/16/22 History tablet pindolol 10 mg tablet 10 mg PO BID 02/22/21 11/16/22 History chlorthalidone 25 mg tablet 12.5 mg PO QAM 10/19/21 11/16/22 History cyclobenzaprine 5 mg tablet 5 mg PO TID PRN Muscle Spasm 10/19/21 11/16/22 History montelukast 10 mg tablet 10 mg PO DAILY 10/19/21 11/16/22 History pantoprazole 40 mg tablet,delayed 40 mg PO BID 10/19/21 11/16/22 History release potassium chloride 10 mEq 20 meq PO BID 10/19/21 11/16/22 History capsule,extended release cetirizine 10 mg tablet 10 mg PO DAILY 10/19/22 11/16/22 History fluticasone propionate 50 2 spray intranasal DAILY PRN 10/19/22 11/16/22 History mcg/actuation nasal Allergy Symptoms spray,suspension hydroxyzine HCl 25 mg tablet 25 mg PO TID PRN ALCOHOL CRAVINGS 10/19/22 11/16/22 History magnesium oxide 400 mg PO HS 10/19/22 11/16/22 History naltrexone 50 mg tablet 50 mg PO DAILY 10/19/22 11/16/22 History acetaminophen 500 mg tablet 1,000 mg PO DIRECTED PRN 11/16/22 11/16/22 History (Tylenol Extra Strength) PAIN/FEVER [id number] 250 1 tab PO DIRECTED PRN Headache 11/16/22 11/16/22 History mg-250 mg-65 mg tablet (Excedrin Migraine) buspirone 15 mg tablet 15 - 30 mg PO HS PRN Insomnia 11/16/22 11/16/22 History clotrimazole-betamethasone 1 1 applic topical BID PRN Skin 11/16/22 11/16/22 History %-0.05 % topical cream Irritation diphenhydramine HCl 25 mg capsule 50 mg PO DIRECTED PRN Allergic 11/16/22 11/16/22 History (Benadryl) Reaction epinephrine 0.3 mg/0.3 mL 0.3 mg IM DIRECTED PRN 11/16/22 11/16/22 History injection, auto-injector anaphylaxis pindolol 5 mg tablet 5 mg PO BID 11/16/22 11/16/22 History Patient History Medical History Alcohol abuse GERD (gastroesophageal reflux disease) HTN (hypertension) Migraine Tobacco abuse Surgical History History of colonoscopy History of esophagogastroduodenoscopy (EGD) History of umbilical hernia repair 06/2020 Hx of appendectomy S/P cholecystectomy 06/2020 Family History Brother Hypertension Grandfather (Paternal) Parkinson disease Social History Smoking Status: Current every day smoker Tobacco Type: Cigarettes packs per day: 1.5; Cigarettes Per Day: 21; Second Hand Exposure: Yes; Do You Dip or Chew Tobacco: No; Tobacco Cessation Education Requested by Patient: Yes Hx Alcohol Use: Yes Alcohol type: hard liquor Alcohol type Comment: vodka Alcohol Intake Frequency Comment: night; 2-3 drinks with 3-6 shots of vodka total Hx Substance Use: No Preferred Language: Kyr[place]z Communication Ability: Effective Loom Checker Required: No Beliefs That Will Affect Care: None marital status: Current Living Situation: Family Current Living Situation Comment: and kids current occupational status: employed Other Information That Helps Us Care for You: No Feels Safe at Home: Yes Safety Concerns: Feels Safe At This Time Assistive Devices: None Review of Systems Review of Systems: All systems reviewed & are unremarkable except as noted in HPI & below Physical Exam Constitutional: WD/WN, vitals as above well groomed, cooperative and comfortable Eyes: PERRL, conjunctivae normal, anicteric sclerae ENMT: external ear and nose normal, oropharynx normal Respiratory: normal respiratory effort, lungs clear to auscultation Cardiovascular: RRR, no murmur, no edema Gastrointestinal (Abdomen): Hypoactive BS, TTP RUQ, soft Skin: no rashes, warm and dry no jaundice Psychiatric: A+Ox3, euthymic affect Lymphatic: no lymphedema Results & Data Vital Signs (Past 12 Hours) Vital Signs Temp Pulse Pulse Resp BP Pulse Ox O2 Del Method 11/17/22 11:36 98 H 11/17/22 11:24 37.2 C 94 H 17 122/78 98 Room Air 11/17/22 07:41 37.1 C 94 H 18 118/73 98 Room Air 11/17/22 03:15 36.9 C 101 H 17 117/77 95 Room Air 11/17/22 02:29 105 H
[2022-11-17] MEDS: NICOTINE 21 MG/24 HR TDSY TD SCH (13:50)
[2022-11-17] MEDS ORDERED: MELATONIN 3 MG TAB PO PRN ×2 (20:07→22:29)
[2022-11-17] MEDS ORDERED: MELATONIN 3 MG TAB PO STA (22:28)
[2022-11-18] MEDS: HYDROmorphone INJ 0.5 MG/0.5 ML SYR IV PRN ×4 (03:48→21:33)
[2022-11-18] MEDS: NSS + 20MEQ KCL 20 MEQ/1,000 ML BAG IV SCH ×2 (03:48→14:01)
[2022-11-18 06:19] LABS: Basophils # (auto) 0.03 K/uL (0-0.2); Basophils % (auto) 0.2 %; Eosinophils # (auto) 0.04 K/uL (0-0.50); Eosinophils % (auto) 0.2 %; Hematocrit (blood only) 30.9 % (42.0-52.0); Hemoglobin 10.9 g/dl (14.0-18.0); Immature Granulocytes # (auto) 0.16 K/uL (0.01-0.20); Lymphocytes # (auto) 1.61 K/uL (1.2-3.4); Lymphocytes % (auto) 9.6 %; Mean Corpuscular Hemoglobin 32.2 pg (25.0-34.0); Mean Corpuscular Hgb Conc 35.3 g/dL (32.0-36.0); Mean Corpuscular Volume 91.4 fL (80.0-100.0); Mean Platelet Volume 9.7 fL (9.4-12.4); Monocytes # (auto) 2.05 K/uL (0.11-0.59); Monocytes % (auto) 12.2 %; Neutrophils # (auto) 12.95 K/uL (1.40-6.50); Neutrophils % (auto) 76.8 %; Platelet Count 428 K/uL (130-400); RDW Coefficient of Variation 15.1 % (11.5-14.5); RDW Standard Deviation 50.8 fL (36.4-46.3); Red Blood Count 3.38 M/uL (4.70-6.10); White Blood Count 16.84 K/ul (4.8-10.8)
[2022-11-18 06:37] LABS: Anion Gap 8 (3-11); BUN Creatinine Ratio 9.1 (10-20); Blood Urea Nitrogen 4 mg/dl (6-23); Calcium 8.1 mg/dl (8.6-10.3); Carbon Dioxide 21 mmol/L (21-32); Chloride 102 mmol/L (98-107); Creatinine Clr Calc Pharmacy 218.8 ml/min; Est GFR (African American) > 150.0 ml/min; Est GFR (Non-African American) 145.9 ml/min; Glucose 96 mg/dl (70-99(Fasting)); Potassium 3.4 mmol/L (3.5-5.1); Sodium 131 mmol/L (136-145)
[2022-11-18] MEDS ORDERED: POTASSIUM CHLORIDE CRTAB 20 MEQ TABCR PO STA (07:54)
[2022-11-18 08:41] LABS: Magnesium 1.4 mg/dl (1.7-2.4)
[2022-11-18] MEDS: ENOXAPARIN INJ 40 MG/0.4 ML SYR SQ SCH (09:24)
[2022-11-18] MEDS: MONTELUKAST SODIUM 10 MG TABLET PO SCH (09:25)
[2022-11-18] MEDS: NICOTINE 21 MG/24 HR TDSY TD SCH (09:25)
[2022-11-18] MEDS: PANTOprazole 40 MG in SYRINGE 0 ML IV SCH ×2 (09:26→20:08)
[2022-11-18] MEDS: THIAMINE HCL 100 MG in SYRINGE 9 ML IV SCH (09:26)
[2022-11-18] MEDS: FOLIC ACID 1 MG in SYRINGE 9.8 ML IV SCH (09:26)
[2022-11-18] MEDS: MAGNESIUM SULFATE / D5W 1 GM/100 ML BAG IV SCH ×2 (12:09→14:01)
--- NOTE | 2022-11-18 12:52 | Hospitalist Progress Note ---
Date of Service November 18, 2022 Assessment & Plan (1) Acute pancreatitis: Plan: 36 y/o male with a prior hx of EtOH induced pancreatitis presents with recurrent pancreatitis. Clinically improving Will advance diet today. Goal diet is low fat diet Will monitor tolerance Leukocytosis improving Possible dc tomorrow, if still improving/stable OP appt for EUS/EGD on 01/15 with continued alcohol cessation Replete hypokalemia and hypomagnesemia Continue IVF. Will reduce as po intake continues to improve (2) Leukocytosis: Plan: 2/2 above (3) Alcohol abuse: Plan: Continue folate and thiamine Reported he has been sober since before recent hospitalization (4) HTN (hypertension): Plan: Chronic, stable. Continue to hold chlorthalidone while being treated for acute pancreatitis. (5) Tobacco abuse: Plan: Nicoderm patch Full Code DVT proph-Lovenox Plan for dc tomorrow I spent a total of 40 minutes coordinating, documenting and providing care for this patient excluding time spent in performance of separately billed services Admission and Anticipated Discharge Date Admission Date: November 16, 2022 Subjective Patient seen and examined Reports symptoms remarkably improved Reports no abd pain at the time of evaluation. Denied nausea, vomiting Reports weakness Denied diarrhea, fever, chills Denied cough, chest pain, SOB Physical Exam Constitutional: + well hydrated; no acute distress Eyes: PERRL, conjunctivae normal, anicteric sclerae ENMT: external ear and nose normal, oropharynx normal Respiratory: normal respiratory effort, lungs clear to auscultation Cardiovascular: Rate/Rhythm: regular rate and regular rhythm S1 S2 Gastrointestinal (Abdomen): normal bowel sounds, soft, nontender, no hepatosplenomegaly Musculoskeletal: no cyanosis or clubbing, extremities motor strength 5/5 Neurologic: PERRL, EOMI, accommodation nl, no face palsy, no dysarthria Psychiatric: A+Ox3, euthymic affect Results & Data Results & Data Vital Signs (Past 12 Hours) Vital Signs Temp Pulse Resp BP Pulse Ox O2 Del Method 11/18/22 12:12 36.6 C 101 H 20 123/94 98 Room Air 11/18/22 08:34 36.7 C 88 18 147/71 H 99 Room Air 11/18/22 08:00 36.8 C 120 H 18 139/63 97 Room Air 11/18/22 05:28 36.9 C 11/18/22 03:40 37.8 C H 113 H 18 128/78 97 Room Air Laboratory Results Abnormal lab results 11/18/22 11/18/22 Range/Units 05:46 05:46 WBC 16.84 H (4.8-10.8) K/ul RBC 3.38 L (4.70-6.10) M/uL Hgb 10.9 L (14.0-18.0) g/dl Hct 30.9 L (42.0-52.0) % RDW Std Deviation 50.8 H (36.4-46.3) fL RDW Coeff of Jeremie 15.1 H (11.5-14.5) % Plt Count 428 H (130-400) K/uL Neut # (Auto) 12.95 H (1.40-6.50) K/uL [place] # (Auto) 2.05 H (0.11-0.59) K/uL Sodium 131 L (136-145) mmol/L Potassium 3.4 L (3.5-5.1) mmol/L BUN 4 L (6-23) mg/dl Creatinine 0.44 L (0.6-1.4) mg/dl BUN/Creatinine Ratio 9.1 L (10-20) Calcium 8.1 L (8.6-10.3) mg/dl Magnesium 1.4 L (1.7-2.4) mg/dl
[2022-11-18 21:16] LABS: Anion Gap 6 (3-11); BUN Creatinine Ratio 6.3 (10-20); Blood Urea Nitrogen 3 mg/dl (6-23); Calcium 8.4 mg/dl (8.6-10.3); Carbon Dioxide 22 mmol/L (21-32); Chloride 100 mmol/L (98-107); Creatinine Clr Calc Pharmacy 200.6 ml/min; Est GFR (African American) > 150.0 ml/min; Est GFR (Non-African American) 140.8 ml/min; Glucose 89 mg/dl (70-99(Fasting)); Potassium 4.5 mmol/L (3.5-5.1); Sodium 128 mmol/L (136-145)
--- NOTE | 2022-11-18 21:34 | Communication Note ---
Date of Service: November 18, 2022 Patient requesting for IVF to be stopped as he cannot stop peeing as per RN. Serum sodium 128 from 131. AP Worsening hyponatremia Possible underlying cirrhosis Stop IVF Hyponatremia work-up
[2022-11-18 22:40] LABS: Appearance Urine Clear (Clear); Bilirubin Urine Negative (Negative); Blood Urine Negative (Negative); Color Urine Yellow; Glucose Urine UA Negative (Negative); Ketones Urine Negative (Negative); Leukocyte Esterase Urine Negative (Negative); Nitrite Urine Negative (Negative); Protein Urine Negative (Negative); Urobilinogen Urine Negative (Negative)
[2022-11-19 01:14] LABS: Thyroid Stimulating Hormone 4.964 uIu/ml (0.300-4.500)
[2022-11-19 01:36] LABS: Basophils # (auto) 0.03 K/uL (0-0.2); Basophils % (auto) 0.2 %; Eosinophils # (auto) 0.11 K/uL (0-0.50); Eosinophils % (auto) 0.7 %; Hematocrit (blood only) 31.5 % (42.0-52.0); Hemoglobin 10.9 g/dl (14.0-18.0); Immature Granulocytes # (auto) 0.12 K/uL (0.01-0.20); Immature Granulocytes % (auto) 0.7 %; Lymphocytes # (auto) 1.88 K/uL (1.2-3.4); Lymphocytes % (auto) 11.7 %; Mean Corpuscular Hemoglobin 32.6 pg (25.0-34.0); Mean Corpuscular Hgb Conc 34.6 g/dL (32.0-36.0); Mean Corpuscular Volume 94.3 fL (80.0-100.0); Mean Platelet Volume 9.7 fL (9.4-12.4); Monocytes # (auto) 1.92 K/uL (0.11-0.59); Monocytes % (auto) 11.9 %; Neutrophils # (auto) 12.07 K/uL (1.40-6.50); Neutrophils % (auto) 74.8 %; Platelet Count 446 K/uL (130-400); RDW Coefficient of Variation 14.9 % (11.5-14.5); RDW Standard Deviation 52.4 fL (36.4-46.3); Red Blood Count 3.34 M/uL (4.70-6.10); White Blood Count 16.13 K/ul (4.8-10.8)
[2022-11-19 01:45] LABS: Anion Gap 9 (3-11); Calcium 8.2 mg/dl (8.6-10.3); Carbon Dioxide 23 mmol/L (21-32); Chloride 99 mmol/L (98-107); Magnesium 1.7 mg/dl (1.7-2.4); Potassium 3.5 mmol/L (3.5-5.1); Sodium 131 mmol/L (136-145)
[2022-11-19 01:46] LABS: T4 Free Thyroxine 1.11 ng/dl (0.61-1.60)
[2022-11-19 01:50] LABS: BUN Creatinine Ratio 6.4 (10-20); Blood Urea Nitrogen 3 mg/dl (6-23); Creatinine Clr Calc Pharmacy 204.8 ml/min; Est GFR (African American) > 150.0 ml/min; Glucose 85 mg/dl (70-99(Fasting)); Phosphorus 3.2 mg/dl (2.5-4.9)
[2022-11-19] MEDS: NSS + 20MEQ KCL 20 MEQ/1,000 ML BAG IV SCH (07:53)
[2022-11-19] MEDS: HYDROmorphone INJ 0.5 MG/0.5 ML SYR IV PRN (08:09)
[2022-11-19] MEDS: NICOTINE 21 MG/24 HR TDSY TD SCH (08:10)
[2022-11-19] MEDS: ENOXAPARIN INJ 40 MG/0.4 ML SYR SQ SCH (08:11)
[2022-11-19] MEDS: PANTOprazole 40 MG in SYRINGE 0 ML IV SCH (08:11)
[2022-11-19] MEDS: MONTELUKAST SODIUM 10 MG TABLET PO SCH (08:11)
[2022-11-19] MEDS: FOLIC ACID 1 MG in SYRINGE 9.8 ML IV SCH (08:11)
[2022-11-19] MEDS: THIAMINE HCL 100 MG in SYRINGE 9 ML IV SCH (08:11)
--- NOTE | 2022-11-19 12:37 | Discharge Summary ---
Date of Service November 19, 2022 Admission HPI Per Admitting Provider This is a 36 y/o male with a hx of pancreatitis, EtOH abuse, EtOH hepatitis, GERD, HTN, tobacco abuse, and migraine who presented to the ED today with abdominal pain, N/V. Pt was admitted 10/19-10/23/22 with alcoholic pancreatis but signed out AMA once symptoms improving. History is obtained from both patient and his at the bedside. Since leaving the hospital, he doesn't feel like he ever got back to baseline. Ongoing loss of appetite, occasional abd discomfort and nausea. However, this morning, he had acute worsening of the epigastric to RUQ pain radiating to his back. Associated nausea and vomiting so they returned to the ED for evaluation. No documented fevers at home but has had chills and sweats, fatigue, generalized weakness. Denies any EtOH since leaving the hospital - per , she removed all the alcohol from the house. He is having ongoing issues with heartburn and regurgitation, even with the pantoprazole and recently added famotidine BID from PCP office. No chest pain, palpitations, SOB, syncope. Admission Exam Per Admitting Provider Constitutional: + ill appearing and + thin Eyes: + anicteric sclerae Neck: trachea midline Respiratory: no respiratory distress and no labored breathing Auscultation: + diminished lung sounds Cardiovascular: Rate/Rhythm: regular rhythm and + tachycardic Vessels: radial pulses present Extremities: no pedal edema Gastrointestinal (Abdomen): Inspection/Auscultation: + hypoactive bowel sounds Percussion/Palpation: + abdomen tender (diffusely but worse in epigastric and RUQ), + guarding (voluntary guarding) and abdomen soft Musculoskeletal: Head/Neck/Chest: normocephalic, head atraumatic and neck supple Skin: no jaundice Neurologic: moves all extremities; no focal motor deficits Principal Diagnosis Pancreatitis Discharge Exam Constitutional + well hydrated; no acute distress Eyes PERRL, conjunctivae normal, anicteric sclerae ENMT external ear and nose normal, oropharynx normal Respiratory normal respiratory effort, lungs clear to auscultation Cardiovascular Rate/Rhythm: regular rate and regular rhythm S1 S2 Gastrointestinal (Abdomen) normal bowel sounds, soft, nontender, no hepatosplenomegaly Musculoskeletal no cyanosis or clubbing, extremities motor strength 5/5 Neurologic PERRL, EOMI, accommodation nl, no face palsy, no dysarthria Psychiatric A+Ox3, euthymic affect Discharge Data Allergies Allergy/AdvReac Type Severity Reaction Status Date / Time shellfish derived Allergy Verified 11/17/22 12:49 erythromycin base AdvReac Severe seizure Verified 11/16/22 15:34 Consultations 11/16/22 16:11 ED Decision to Admit Stat 11/16/22 18:29 Consult Gastroenterology Routine Ordered Studies 11/16/22 14:45 CT Abd and Pelvis [CT abd pelvis IV con only] Stat Hospital Course (1) Acute pancreatitis: 36 y/o male with a prior hx of EtOH induced pancreatitis presents with recurrent pancreatitis. Lipase was 437 on presentation (lower than recent hospitalization, was 749 on 10/22/22) trended down to 195 CT abd showed mild to moderate interstitial edematous pancreatitis, interval development of a probable pseudocyst, hepatomegaly with hepatic steatosis. Leukocytosis of 37.8K on admission, improved to 16.13K on discharge Was managed with IVF and pain control Pain resolved and tolerating diet well Discharged on low fat diet. Reported his current episodes may have started after some cookout. Patient to follow up with GI outpatient for outpatient EUS/EGD Hypokalemia/hypomagnesemia repleted inpatient Patient to continue home po potassium and magnesium (2) Leukocytosis: (3) Alcohol abuse: History of alcohol abuse Reported he has been sober since before recent hospitalization (4) HTN (hypertension): Chronic, stable. Continue home antihypertensives (5) Tobacco abuse: Counseled about cessation Total Time Total Time Spent Total Time Spent (In Minutes): 35 Total Time Includes: Examination of the Patient, Discharge Planning and Medication Reconciliation Discharge Plan Discharge Items Patient Disposition: Home - Self-Care Reason For Visit: Abdominal pain Discharge Diagnosis: Pancreatitis Activity: Resume your previous activity Non-emergency contact: Primary Care Provider and [employer]pping [employer]vel [employer]iler Call non-emergency contact if: you have any medication questions and your symptoms worsen Follow-up/Referrals: Dheeraj Tee MD [Primary Care Provider] - (Date & Time 11/25/2022 3:00 PM Provider Dheeraj Tee MD [facility] ) Diet: Heart Healthy and Low Fat Addtl Attending Provider Instructions: Mr Jerry You came to the hospital complaining of abdominal pain. You were managed for pancreatitis. Your symptoms improved and you are being discharged home. Please adhere to low fat diet as we discussed. 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 It was a pleasure taking care of you. Pending Studies at Discharge: No Stand-Alone Forms: [facility], Smoking Cessation Medications and DC Order Prescriptions: Continued pindolol 10 mg tablet 10 mg PO BID Rx Instructions: TOTAL DOSE 15 MG--TAKES WITH 5 MG TAB. famotidine 40 mg tablet 40 mg PO BID ondansetron 8 mg tablet,disintegrating 8 mg PO TID PRN (Reason: Nausea) cyclobenzaprine 5 mg tablet 5 mg PO TID PRN (Reason: Muscle Spasm) chlorthalidone 25 mg tablet 12.5 mg PO QAM pantoprazole 40 mg tablet,delayed release (DR/EC) 40 mg PO BID montelukast 10 mg tablet 10 mg PO DAILY potassium chloride 10 mEq capsule, extended release 20 meq PO BID naltrexone 50 mg Tablet 50 mg PO DAILY Rx Instructions: LAST FILLED 09/16/22 FOR 30 DAYS. hydroxyzine HCl 25 mg Tablet 25 mg PO TID PRN (Reason: ALCOHOL CRAVINGS) magnesium oxide 400 mg magnesium Tablet 400 mg PO HS cetirizine 10 mg Tablet 10 mg PO DAILY fluticasone propionate 50 mcg/actuation [place],Suspension 2 spray INTRANASAL DAILY PRN (Reason: Allergy Symptoms) Rx Instructions: administer into each nostril acetaminophen [Tylenol Extra Strength] 500 mg Tablet 1,000 mg PO DIRECTED PRN (Reason: PAIN/FEVER) diphenhydramine HCl [Benadryl] 25 mg Capsule 50 mg PO DIRECTED PRN (Reason: Allergic Reaction) clotrimazole-betamethasone 1-0.05 % cream 1 applic TOPICAL BID PRN (Reason: Skin Irritation) Excedrin Migraine 250-250-65 mg Tablet 1 tab PO DIRECTED PRN (Reason: Headache) pindolol 5 mg tablet 5 mg PO BID Rx Instructions: TOTAL DOSE 15 MG--TAKES WITH 10 MG TAB. buspirone 15 mg tablet 15 - 30 mg PO HS PRN (Reason: Insomnia) epinephrine 0.3 mg/0.3 mL auto-injector 0.3 mg IM DIRECTED PRN (Reason: anaphylaxis) Discharge Orders: Discharge Order (Routine); Ordered 11/19/22 Ordered By: Andres I. Ezekwem Admission Data Admit Date/Time: 11/16/22 16:56 Attending Provider: Mckenna Serrano I. Admit Provider: Wes Newsome Primary Care Provider: Dheeraj Tee Other Providers: Wes Newsome ; Maricruz Ng ; Meredith Capellan Other Interventions: Discharge Summary Assessment (RN) Last Done: 11/19/22 12:38
== END 2022-11-19 13:12 | disposition home or self-care (01) | DRG 439 ==
LOC: ED 12:27 → 4W 16:55 → SUATTDRO 16:56 → 4W 17:22